=== PATIENT | female | born 1970 | race Caucasian/White ===

== ENCOUNTER 2018-05-14 12:08 | Inpatient (IN) | payer MEDICAID ==
[~2018-05-14] VITALS: Ht 160 cm; Wt 31.0 kg
[~2018-05-14 12:08] MED LIST: ACET-2119 PO; BUSP5TAB3 PO; DIAZ1KIT2 RC; LEVE10002 PO; LEVO112T39 PO; LORA0.5T PO; OXCA600T5 PO; PARO30TA4 PO; PHEN64.8 PO; VAL5T PO
[2018-05-14] MEDS ORDERED: acetaminophen 325mg rectal suppository RC ONE (12:20)
[2018-05-14] MEDS ORDERED: normal saline 1000ML IV soln IVB ONE (12:50)
[2018-05-14 12:57] LABS: BASOPHILS % (AUTO) 0 % (0-1); EOSINOPHILS % (AUTO) 0 % (0-6); HEMATOCRIT 43.3 % (35.0-45.0); HEMOGLOBIN 14.5 g/dl (12.0-16.0); LYMPHOCYTES # (AUTO) 0.7 X10'3 (1.1-4.8); MEAN CORPUSCULAR HEMOGLOBIN 31.4 PG (27.0-31.0); MEAN CORPUSCULAR HGB CONC 33.5 % (33.0-36.5); MEAN CORPUSCULAR VOLUME 93.7 FL (78-98); MONOCYTES # (AUTO) 0.3 X10'3 (0-0.9); MONOCYTES % (AUTO) 2.2 % (2-12); NEUTROPHILS # (AUTO) 12.7 X10'3 (1.8-7.7); NEUTROPHILS % (AUTO) 92.8 % (42-75); PLATELET COUNT 114 X10'3 (140-440); RED BLOOD COUNT 4.62 X10'6 (4.20-5.60); RED CELL DISTRIBUTION WIDTH 14.2 % (11.5-14.5); WHITE BLOOD COUNT 13.7 X10'3 (4.5-11.0)
[2018-05-14 13:13] LABS: ALANINE AMINOTRANSFERASE 62 U/L (12-78); ALBUMIN 3.8 G/DL (3.4-5.0); ALBUMIN/GLOBULIN RATIO 0.9 (1.1-1.5); ALKALINE PHOSPHATASE 111 IU/L (46-116); ANION GAP 10 (8-16); ASPARTATE AMINO TRANSFERASE 32 U/L (10-37); BILIRUBIN,TOTAL 0.4 MG/DL (0.1-1.0); BLOOD UREA NITROGEN 17 MG/DL (7-18); BUN/CREATININE RATIO 18.7 (6.6-38.0); CALCIUM 9.7 MG/DL (8.5-10.1); CHLORIDE 113 MMOL/L (99-107); CREATININE 0.91 MG/DL (0.40-0.90); GLUCOSE 121 MG/DL (70-104); POTASSIUM 3.3 MMOL/L (3.5-5.1); SODIUM 154 MMOL/L (135-145); TOTAL CARBON DIOXIDE 30.7 MMOL/L (24-32); TOTAL PROTEIN 8.2 G/DL (6.4-8.2); eGFR 66 ML/MIN
[2018-05-14 13:17] LABS: TOTAL CELLS COUNTED 100
[2018-05-14 13:21] LABS: PLATELET ESTIMATE DECREASED; TOXIC GRANULATION 1+
[2018-05-14 13:22] LABS: TOXIC VACUOLATION FEW
[2018-05-14 13:23] LABS: LARGE PLATELETS FEW
[2018-05-14] MEDS ORDERED: CefTRIAXone 2gm/D5W 50ml 50 ML IV ONE (13:40)
[2018-05-14 14:12] LABS: CLARITY,URINE SLIGHTLY CLOUDY (Clear); COLOR,URINE YELLOW (Yellow); GLUCOSE, URINE NEGATIVE (Neg); KETONES,URINE NEGATIVE (Neg); LEUKOCYTE ESTERASE ,URINE NEGATIVE (Neg); NITRITES, URINE POSITIVE (Neg); OCCULT BLOOD,URINE NEGATIVE (Neg); PH,URINE 8.5 (4.8-8.0); PROTEIN,URINE NEGATIVE (Neg); UROBILINOGEN,URINE 0.2 E.U/dL (0.2-1.0)
[2018-05-14 14:15] LABS: UA COLLECTION TYPE STRAIGHT CATH
[2018-05-14 14:18] LABS: BACTERIA,URINE 4+ /HPF (Neg); RBC,URINE NONE SEEN /HPF (0-2); SQUAMOUS EPITHELIAL CELL,UR NONE SEEN /LPF (FEW); WBC,URINE 0-4 /HPF (0-4)
[2018-05-14] MEDS ORDERED: magnesium hydroxide 30ml (MOM) UD suspension PO PRN (14:55)
[2018-05-14] MEDS ORDERED: HYDROcodone/acetaminophen 5mg/325mg tablet PO PRN (14:55)
[2018-05-14] MEDS ORDERED: ondansetron/PF 4mg/2ml inj IV PRN (14:55)
[2018-05-14] MEDS ORDERED: acetaminophen 325mg tablet PO PRN ×3 (14:55→15:40)
[2018-05-14] MEDS ORDERED: mag hydrox/Alum hydrox/simeth 30ml oral suspension PO PRN (14:55)
[2018-05-14] MEDS: normal saline 1000ml 1,000 ML IV SCH (14:55)
[2018-05-14] MEDS ORDERED: OXCA300T4 PO (15:10)
[2018-05-14] MEDS ORDERED: DOCU-28 PO (15:16)
[2018-05-14] MEDS ORDERED: MULT1CAP44 PO (15:16)
[2018-05-14] MEDS ORDERED: OMEP40CA37 PO (15:16)
[2018-05-14] MEDS ORDERED: LORA0.5T PO (15:16)
[2018-05-14] MEDS ORDERED: LORazepam 0.5 MG tablet PO PRN (15:40)
[2018-05-14 16:14] VITALS: BP 96/44
[2018-05-14] MEDS ORDERED: ibuprofen 200mg tablet PO PRN (16:35)
[2018-05-14] MEDS: levoFLOXACIN-Levaquin 500mg/D5 100 ML IV SCH (16:44)
[2018-05-14 18:00] VITALS: BP 91/64
[2018-05-14] MEDS: LORazepam 0.5 MG tablet PO SCH (18:16)
[2018-05-14] MEDS: levetiracetam 250mg tablet PO SCH (20:00)
[2018-05-14] MEDS ORDERED: OXCARBAZEPINE PO SCH (20:00)
[2018-05-14] MEDS: oxcarbazepine 150mg tablet PO SCH (20:00)
[2018-05-14] MEDS: busPIRone 5mg tablet PO SCH (20:00)
[2018-05-14] MEDS: docusate sod 100mg capsule PO SCH (20:00)
[2018-05-14] MEDS: phenobarbital 30mg tablet PO SCH (20:42)
[2018-05-15] VITALS: BP 129/103
[2018-05-15] MEDS: normal saline 1000ml 1,000 ML IV SCH ×3 (01:27→21:23)
[2018-05-15 06:32] LABS: ALBUMIN 2.8 G/DL (3.4-5.0); ANION GAP 12 (8-16); BLOOD UREA NITROGEN 17 MG/DL (7-18); BUN/CREATININE RATIO 25.8 (6.6-38.0); CALCIUM 8.5 MG/DL (8.5-10.1); CHLORIDE 117 MMOL/L (99-107); CREATININE 0.66 MG/DL (0.40-0.90); GLUCOSE 76 MG/DL (70-104); POTASSIUM 3.3 MMOL/L (3.5-5.1); SODIUM 154 MMOL/L (135-145); TOTAL CARBON DIOXIDE 25.3 MMOL/L (24-32); eGFR > 90 ML/MIN
[2018-05-15 06:43] LABS: BASOPHILS % (AUTO) 0.3 % (0-1); EOSINOPHILS # (AUTO) 0.1 X10'3 (0-0.9); EOSINOPHILS % (AUTO) 0.5 % (0-6); HEMATOCRIT 36.1 % (35.0-45.0); HEMOGLOBIN 11.8 g/dl (12.0-16.0); LYMPHOCYTES # (AUTO) 2.4 X10'3 (1.1-4.8); LYMPHOCYTES % (AUTO) 16.2 % (21-51); MEAN CORPUSCULAR HEMOGLOBIN 31.4 PG (27.0-31.0); MEAN CORPUSCULAR HGB CONC 32.7 % (33.0-36.5); MEAN CORPUSCULAR VOLUME 95.9 FL (78-98); MEAN PLATELET VOLUME 12.8 FL (7.4-10.4); MONOCYTES # (AUTO) 0.7 X10'3 (0-0.9); MONOCYTES % (AUTO) 4.9 % (2-12); NEUTROPHILS # (AUTO) 11.7 X10'3 (1.8-7.7); NEUTROPHILS % (AUTO) 78.1 % (42-75); PLATELET COUNT 88 X10'3 (140-440); RED BLOOD COUNT 3.76 X10'6 (4.20-5.60); RED CELL DISTRIBUTION WIDTH 14.4 % (11.5-14.5); WHITE BLOOD COUNT 14.9 X10'3 (4.5-11.0)
[2018-05-15 07:00] VITALS: BP 112/62
[2018-05-15] MEDS: enoxaparin 40mg/0.4ml syringe SQ SCH (07:02)
[2018-05-15] MEDS: pantoprazole 40mg Tablet.DR PO SCH (07:30)
[2018-05-15] MEDS ORDERED: LORazepam 0.5 MG tablet PO SCH (08:00)
[2018-05-15] MEDS: docusate sod 100mg capsule PO SCH ×2 (08:00→19:15)
[2018-05-15] MEDS: oxcarbazepine 150mg tablet PO SCH ×2 (08:00→19:15)
[2018-05-15] MEDS: LORazepam 0.5 MG tablet PO SCH (08:00)
[2018-05-15] MEDS ORDERED: enoxaparin 40mg/0.4ml syringe SUBCUT SCH (08:00)
[2018-05-15] MEDS: busPIRone 5mg tablet PO SCH ×2 (08:00→19:14)
[2018-05-15] MEDS: levetiracetam 250mg tablet PO SCH ×2 (08:00→19:15)
[2018-05-15] MEDS: levoTHYROXINE 112mcg tablet PO SCH (08:00)
[2018-05-15] MEDS: PARoxetine 20mg tablet PO SCH (08:00)
[2018-05-15] MEDS: multivitamins, therapeutics tablet PO SCH (08:00)
[2018-05-15] MEDS: phenobarbital 30mg tablet PO SCH ×2 (08:00→21:00)
[2018-05-15] MEDS: CefTRIAXone/D5W-Rocephin 1gm 50 ML IV SCH (08:22)
[2018-05-15] MEDS: levoFLOXACIN-Levaquin 500mg/D5 100 ML IV SCH (10:00)
[2018-05-15] MEDS ORDERED: potassium Cl 20 mEq SR tablet PO PRN ×2 (14:35)
[2018-05-15] MEDS ORDERED: magnesium 4gm in 100ml NS 100 ML IV PRN (14:35)
[2018-05-15] MEDS ORDERED: magnesium Cl slow-release 64mg tablet PO PRN (14:35)
[2018-05-15] MEDS ORDERED: potassium Cl 40MEQ/NS 500ml 500 ML IV PRN (14:35)
[2018-05-15] MEDS: potassium Cl 40MEQ/NS 500ml 500 ML IV PRN (16:05)
[2018-05-15 18:00] VITALS: BP 118/55
[2018-05-15] MEDS: lactobacillus rhamnosus 10,000 MMU CELLS/CAPSULE PO SCH (19:15)
[2018-05-16] VITALS: BP 112/56
[2018-05-16 05:15] LABS: BASOPHILS % (AUTO) 0.2 % (0-1); EOSINOPHILS # (AUTO) 0.2 X10'3 (0-0.9); EOSINOPHILS % (AUTO) 1.6 % (0-6); HEMATOCRIT 35.2 % (35.0-45.0); HEMOGLOBIN 11.7 g/dl (12.0-16.0); LYMPHOCYTES % (AUTO) 20.9 % (21-51); MEAN CORPUSCULAR HEMOGLOBIN 31.4 PG (27.0-31.0); MEAN CORPUSCULAR HGB CONC 33.3 % (33.0-36.5); MEAN CORPUSCULAR VOLUME 94.3 FL (78-98); MEAN PLATELET VOLUME 13.1 FL (7.4-10.4); MONOCYTES # (AUTO) 0.6 X10'3 (0-0.9); NEUTROPHILS # (AUTO) 6.9 X10'3 (1.8-7.7); NEUTROPHILS % (AUTO) 71.3 % (42-75); PLATELET COUNT 97 X10'3 (140-440); RED BLOOD COUNT 3.73 X10'6 (4.20-5.60); RED CELL DISTRIBUTION WIDTH 13.8 % (11.5-14.5); WHITE BLOOD COUNT 9.7 X10'3 (4.5-11.0)
[2018-05-16 05:25] LABS: ALBUMIN 2.8 G/DL (3.4-5.0); ANION GAP 13 (8-16); BLOOD UREA NITROGEN 11 MG/DL (7-18); BUN/CREATININE RATIO 15.9 (6.6-38.0); CALCIUM 8.6 MG/DL (8.5-10.1); CHLORIDE 111 MMOL/L (99-107); CREATININE 0.69 MG/DL (0.40-0.90); GLUCOSE 68 MG/DL (70-104); POTASSIUM 4.3 MMOL/L (3.5-5.1); SODIUM 148 MMOL/L (135-145); eGFR > 90 ML/MIN
[2018-05-16 05:41] LABS: LARGE PLATELETS FEW; PLATELET ESTIMATE DECREASED
[2018-05-16] MEDS: normal saline 1000ml 1,000 ML IV SCH ×2 (06:55→15:44)
[2018-05-16 07:00] VITALS: BP 134/76
[2018-05-16] MEDS: pantoprazole 40mg Tablet.DR PO SCH (07:30)
[2018-05-16] MEDS: lactobacillus rhamnosus 10,000 MMU CELLS/CAPSULE PO SCH ×2 (08:00→19:58)
[2018-05-16] MEDS: multivitamins, therapeutics tablet PO SCH (08:00)
[2018-05-16] MEDS: levoTHYROXINE 112mcg tablet PO SCH (08:00)
[2018-05-16] MEDS: oxcarbazepine 150mg tablet PO SCH ×2 (08:00→19:58)
[2018-05-16] MEDS: PARoxetine 20mg tablet PO SCH (08:00)
[2018-05-16] MEDS: busPIRone 5mg tablet PO SCH ×2 (08:00→19:58)
[2018-05-16] MEDS: phenobarbital 30mg tablet PO SCH ×2 (08:00→20:38)
[2018-05-16] MEDS: enoxaparin 40mg/0.4ml syringe SQ SCH (08:00)
[2018-05-16] MEDS: docusate sod 100mg capsule PO SCH ×2 (08:00→19:58)
[2018-05-16] MEDS: CefTRIAXone/D5W-Rocephin 1gm 50 ML IV SCH (08:14)
[2018-05-16] MEDS: LORazepam 2 mg/ml vial IV SCH (08:15)
[2018-05-16] MEDS: levoFLOXACIN-Levaquin 500mg/D5 100 ML IV SCH (09:43)
[2018-05-16] MEDS: levetiracetam inj 500 MG in normal saline 100ml IV soln 95 ML IV SCH ×2 (11:41→19:46)
[2018-05-16 12:36] VITALS: BP 124/69
[2018-05-16 18:00] VITALS: BP 114/40
[2018-05-17] VITALS: BP 123/53
[2018-05-17] MEDS: normal saline 1000ml 1,000 ML IV SCH (03:24)
[2018-05-17 05:07] LABS: BASOPHILS % (AUTO) 0.3 % (0-1); EOSINOPHILS # (AUTO) 0.1 X10'3 (0-0.9); EOSINOPHILS % (AUTO) 1.7 % (0-6); HEMATOCRIT 36.3 % (35.0-45.0); HEMOGLOBIN 12.2 g/dl (12.0-16.0); LYMPHOCYTES # (AUTO) 1.7 X10'3 (1.1-4.8); LYMPHOCYTES % (AUTO) 26.7 % (21-51); MEAN CORPUSCULAR HEMOGLOBIN 31.7 PG (27.0-31.0); MEAN CORPUSCULAR HGB CONC 33.7 % (33.0-36.5); MEAN CORPUSCULAR VOLUME 93.8 FL (78-98); MONOCYTES # (AUTO) 0.5 X10'3 (0-0.9); NEUTROPHILS # (AUTO) 4.1 X10'3 (1.8-7.7); NEUTROPHILS % (AUTO) 63.3 % (42-75); PLATELET COUNT 92 X10'3 (140-440); RED BLOOD COUNT 3.86 X10'6 (4.20-5.60); RED CELL DISTRIBUTION WIDTH 13.3 % (11.5-14.5); WHITE BLOOD COUNT 6.5 X10'3 (4.5-11.0)
[2018-05-17 05:25] LABS: ALBUMIN 2.8 G/DL (3.4-5.0); ANION GAP 13 (8-16); BLOOD UREA NITROGEN 7 MG/DL (7-18); BUN/CREATININE RATIO 11.9 (6.6-38.0); CALCIUM 8.5 MG/DL (8.5-10.1); CHLORIDE 109 MMOL/L (99-107); CREATININE 0.59 MG/DL (0.40-0.90); GLUCOSE 76 MG/DL (70-104); POTASSIUM 3.2 MMOL/L (3.5-5.1); SODIUM 147 MMOL/L (135-145); TOTAL CARBON DIOXIDE 24.9 MMOL/L (24-32); eGFR > 90 ML/MIN
[2018-05-17 05:40] LABS: LARGE PLATELETS FEW; PLATELET ESTIMATE DECREASED
[2018-05-17 07:05] VITALS: BP 96/52
[2018-05-17] MEDS: pantoprazole 40mg Tablet.DR PO SCH (07:30)
[2018-05-17] MEDS: busPIRone 5mg tablet PO SCH ×2 (08:00→20:00)
[2018-05-17] MEDS: lactobacillus rhamnosus 10,000 MMU CELLS/CAPSULE PO SCH (08:00)
[2018-05-17] MEDS: enoxaparin 40mg/0.4ml syringe SQ SCH (08:00)
[2018-05-17] MEDS: multivitamins, therapeutics tablet PO SCH (08:00)
[2018-05-17] MEDS: oxcarbazepine 150mg tablet PO SCH ×2 (08:00→20:00)
[2018-05-17] MEDS: phenobarbital 30mg tablet PO SCH ×2 (08:00→20:06)
[2018-05-17] MEDS: PARoxetine 20mg tablet PO SCH (08:00)
[2018-05-17] MEDS: docusate sod 100mg capsule PO SCH ×2 (08:00→20:00)
[2018-05-17] MEDS: LORazepam 2 mg/ml vial IV SCH (08:16)
[2018-05-17] MEDS: levetiracetam inj 500 MG in normal saline 100ml IV soln 95 ML IV SCH ×2 (08:16→20:04)
[2018-05-17] MEDS: levoTHYROXINE 112mcg tablet PO SCH (08:16)
[2018-05-17] MEDS: levoFLOXACIN-Levaquin 500mg/D5 100 ML IV SCH (09:16)
[2018-05-17] MEDS: CefTRIAXone/D5W-Rocephin 1gm 50 ML IV SCH (11:16)
[2018-05-17 11:18] VITALS: BP 131/63
[2018-05-17] MEDS: potassium Cl 20mEq in D5-NS 1,000 ML IV SCH (12:47)
[2018-05-17] MEDS: potassium Cl 40MEQ/NS 500ml 500 ML IV PRN (12:47)
[2018-05-17] MEDS: pantoprazole 40 MG vial IV SCH (15:55)
[2018-05-17 20:00] VITALS: BP 139/116
[2018-05-18] MEDS: LORazepam 2 mg/ml vial IV PRN ×2 (00:56→17:38)
[2018-05-18] MEDS: potassium Cl 20mEq in D5-NS 1,000 ML IV SCH ×3 (00:58→23:50)
[2018-05-18 06:46] LABS: ALBUMIN 2.8 G/DL (3.4-5.0); ANION GAP 13 (8-16); BLOOD UREA NITROGEN 5 MG/DL (7-18); BUN/CREATININE RATIO 9.4 (6.6-38.0); CALCIUM 8.4 MG/DL (8.5-10.1); CHLORIDE 108 MMOL/L (99-107); CREATININE 0.53 MG/DL (0.40-0.90); GLUCOSE 100 MG/DL (70-104); POTASSIUM 4.3 MMOL/L (3.5-5.1); SODIUM 146 MMOL/L (135-145); TOTAL CARBON DIOXIDE 24.9 MMOL/L (24-32); eGFR > 90 ML/MIN
[2018-05-18 06:51] LABS: BASOPHILS % (AUTO) 0.3 % (0-1); EOSINOPHILS # (AUTO) 0.2 X10'3 (0-0.9); EOSINOPHILS % (AUTO) 2.7 % (0-6); HEMATOCRIT 37.5 % (35.0-45.0); HEMOGLOBIN 12.6 g/dl (12.0-16.0); LYMPHOCYTES % (AUTO) 32.3 % (21-51); MEAN CORPUSCULAR HEMOGLOBIN 31.5 PG (27.0-31.0); MEAN CORPUSCULAR HGB CONC 33.6 % (33.0-36.5); MEAN CORPUSCULAR VOLUME 93.8 FL (78-98); MONOCYTES # (AUTO) 0.6 X10'3 (0-0.9); MONOCYTES % (AUTO) 9.1 % (2-12); NEUTROPHILS # (AUTO) 3.4 X10'3 (1.8-7.7); NEUTROPHILS % (AUTO) 55.6 % (42-75); PLATELET COUNT 111 X10'3 (140-440); RED BLOOD COUNT 3.99 X10'6 (4.20-5.60); RED CELL DISTRIBUTION WIDTH 13.6 % (11.5-14.5); WHITE BLOOD COUNT 6.2 X10'3 (4.5-11.0)
[2018-05-18 07:07] VITALS: BP 104/41
[2018-05-18 07:12] LABS: LARGE PLATELETS FEW; PLATELET ESTIMATE DECREASED
[2018-05-18] MEDS: PARoxetine 20mg tablet PO SCH (07:56)
[2018-05-18] MEDS: oxcarbazepine 150mg tablet PO SCH ×3 (07:56→20:00)
[2018-05-18] MEDS: busPIRone 5mg tablet PO SCH ×3 (07:56→20:00)
[2018-05-18] MEDS: enoxaparin 40mg/0.4ml syringe SQ SCH (08:00)
[2018-05-18] MEDS: multivitamins, therapeutics tablet PO SCH (08:00)
[2018-05-18] MEDS: docusate sod 100mg capsule PO SCH ×3 (08:00→20:00)
[2018-05-18] MEDS: phenobarbital 30mg tablet PO SCH ×3 (08:00→21:00)
[2018-05-18] MEDS: LORazepam 2 mg/ml vial IV SCH (08:02)
[2018-05-18] MEDS: levetiracetam inj 500 MG in normal saline 100ml IV soln 95 ML IV SCH ×2 (08:04→19:51)
[2018-05-18] MEDS: CefTRIAXone/D5W-Rocephin 1gm 50 ML IV SCH (08:04)
[2018-05-18] MEDS: pantoprazole 40 MG vial IV SCH (08:35)
[2018-05-18] MEDS: levoFLOXACIN-Levaquin 500mg/D5 100 ML IV SCH (09:21)
[2018-05-18] MEDS: levoTHYROXINE sod inj. 100mcg/5 ml vial IV SCH (09:59)
[2018-05-18 12:49] VITALS: BP 97/62
[2018-05-18 20:00] VITALS: BP 87/52
[2018-05-19] VITALS: BP 86/55
[2018-05-19 06:55] LABS: BASOPHILS % (AUTO) 0.4 % (0-1); EOSINOPHILS # (AUTO) 0.1 X10'3 (0-0.9); EOSINOPHILS % (AUTO) 1.6 % (0-6); HEMOGLOBIN 12.3 g/dl (12.0-16.0); LYMPHOCYTES # (AUTO) 1.9 X10'3 (1.1-4.8); LYMPHOCYTES % (AUTO) 39.6 % (21-51); MEAN CORPUSCULAR HEMOGLOBIN 31.2 PG (27.0-31.0); MEAN CORPUSCULAR HGB CONC 33.2 % (33.0-36.5); MEAN CORPUSCULAR VOLUME 94.1 FL (78-98); MONOCYTES # (AUTO) 0.6 X10'3 (0-0.9); MONOCYTES % (AUTO) 12.5 % (2-12); NEUTROPHILS # (AUTO) 2.2 X10'3 (1.8-7.7); NEUTROPHILS % (AUTO) 45.9 % (42-75); PLATELET COUNT 130 X10'3 (140-440); RED BLOOD COUNT 3.94 X10'6 (4.20-5.60); WHITE BLOOD COUNT 4.9 X10'3 (4.5-11.0)
[2018-05-19 07:00] VITALS: BP 111/67
[2018-05-19] MEDS: levetiracetam inj 500 MG in normal saline 100ml IV soln 95 ML IV SCH (07:07)
[2018-05-19 07:09] LABS: ALBUMIN 2.6 G/DL (3.4-5.0); ANION GAP 11 (8-16); BLOOD UREA NITROGEN 6 MG/DL (7-18); BUN/CREATININE RATIO 11.5 (6.6-38.0); CALCIUM 8.1 MG/DL (8.5-10.1); CHLORIDE 111 MMOL/L (99-107); CREATININE 0.52 MG/DL (0.40-0.90); GLUCOSE 98 MG/DL (70-104); SODIUM 147 MMOL/L (135-145); TOTAL CARBON DIOXIDE 25.1 MMOL/L (24-32); eGFR > 90 ML/MIN
[2018-05-19] MEDS: phenobarbital 30mg tablet PO SCH ×2 (08:00→20:10)
[2018-05-19] MEDS: multivitamins, therapeutics tablet PO SCH (08:00)
[2018-05-19] MEDS: oxcarbazepine 150mg tablet PO SCH ×2 (08:00→20:10)
[2018-05-19] MEDS: PARoxetine 20mg tablet PO SCH (08:00)
[2018-05-19] MEDS: docusate sod 100mg capsule PO SCH ×2 (08:00→20:12)
[2018-05-19] MEDS: busPIRone 5mg tablet PO SCH ×2 (08:00→20:12)
[2018-05-19] MEDS: pantoprazole 40 MG vial IV SCH (08:19)
[2018-05-19] MEDS: levoFLOXACIN-Levaquin 500mg/D5 100 ML IV SCH (08:19)
[2018-05-19] MEDS: levoTHYROXINE sod inj. 100mcg/5 ml vial IV SCH (08:19)
[2018-05-19] MEDS: CefTRIAXone/D5W-Rocephin 1gm 50 ML IV SCH (09:41)
[2018-05-19] MEDS: enoxaparin 40mg/0.4ml syringe SQ SCH (09:42)
[2018-05-19] MEDS: LORazepam 2 mg/ml vial IV SCH (09:45)
[2018-05-19] MEDS: LORazepam 2 mg/ml vial IV PRN ×2 (14:06→18:53)
[2018-05-19] MEDS: potassium Cl 20mEq in D5-NS 1,000 ML IV SCH (14:08)
[2018-05-19] MEDS: Potassium Cl inj 20 MEQ in dextrose 5%-water 990 ML IV SCH (17:30)
[2018-05-19 20:00] VITALS: BP 102/64
[2018-05-19] MEDS ORDERED: levetiracetam 250mg tablet PO SCH (20:00)
[2018-05-19] MEDS: levetiracetam 250mg tablet PO SCH (22:02)
[2018-05-20 00:11] VITALS: BP 102/58
[2018-05-20] MEDS: Potassium Cl inj 20 MEQ in dextrose 5%-water 990 ML IV SCH (03:30)
[2018-05-20] MEDS ORDERED: pantoprazole 40mg Tablet.DR PO SCH (07:30)
[2018-05-20] MEDS: levetiracetam 250mg tablet PO SCH (08:48)
[2018-05-20] MEDS: enoxaparin 40mg/0.4ml syringe SQ SCH (08:56)
[2018-05-20] MEDS: busPIRone 5mg tablet PO SCH (08:57)
[2018-05-20] MEDS: oxcarbazepine 150mg tablet PO SCH (08:57)
[2018-05-20] MEDS: docusate sod 100mg capsule PO SCH (08:57)
[2018-05-20] MEDS: PARoxetine 20mg tablet PO SCH (08:57)
[2018-05-20] MEDS: multivitamins, therapeutics tablet PO SCH (08:58)
[2018-05-20] MEDS: phenobarbital 30mg tablet PO SCH (08:58)
[2018-05-20] MEDS ORDERED: levoFLOXACIN 500mg tablet PO SCH (11:00)
[2018-05-20] MEDS ORDERED: LEVO500T89 PO (11:01)
[2018-05-20 12:00] VITALS: BP 120/64
[2018-05-20] MEDS ORDERED: lactose-reduced food (Ensure High Protein) 237ml bottle PO SCH (17:30)
[2018-05-21] MEDS ORDERED: levoTHYROXINE 112mcg tablet PO SCH (07:00)
[2018-05-21] MEDS ORDERED: pantoprazole 40mg Tablet.DR PO SCH (07:30)
== END 2018-05-20 13:57 | disposition home or self-care (01) | DRG 53 ==
LOC: ER 12:08 → ED HOLD 14:55 → EDBEDREQ 15:10 → SUR 3N 15:55
PROVIDERS: ADMIT Internal Medicine; ATTEND Family Medicine
DX: G40.909 Epilepsy, unspecified, not intractable, without status epilepticus (principal); J18.1 Lobar pneumonia, unspecified organism; E87.0 Hyperosmolality and hypernatremia; G80.9 Cerebral palsy, unspecified; R13.10 Dysphagia, unspecified; N39.0 Urinary tract infection, site not specified; B96.20 Unspecified Escherichia coli [E. coli] as the cause of diseases classified elsewhere; E03.9 Hypothyroidism, unspecified; E87.6 Hypokalemia; Z68.1 Body mass index [BMI] 19.9 or less, adult; Z79.899 Other long term (current) drug therapy
CPT/HCPCS: 36415; 71045; 80048; 80053; 81001; 83605; 84145; 84443; 85025; 87040; 87070; 87077; 87088; 87186; 92616; 96361; 96365; 99285; A6213; A6402; C9113; J0696; J1650; J1953; J1956; J2060; J3480; J7030; J7070

== ENCOUNTER 2018-06-18 11:42 | Emergency (ER) | payer MEDICAID ==
[~2018-06-18] VITALS: Ht 160 cm; Wt 40.9 kg
[~2018-06-18 11:42] MED LIST changes: -DIAZ1KIT2 RC; +DOCU-28 PO; +LEVO500T89 PO; +MULT1CAP44 PO; +OMEP40CA37 PO; +OXCA300T4 PO; -VAL5T PO
[2018-06-18 14:15] VITALS: BP 104/55
[2018-06-18 14:18] LABS: BASOPHILS % (AUTO) 0.7 % (0-1); EOSINOPHILS # (AUTO) 0.1 X10'3 (0-0.9); EOSINOPHILS % (AUTO) 1.1 % (0-6); HEMATOCRIT 38.5 % (35.0-45.0); HEMOGLOBIN 12.7 g/dl (12.0-16.0); LYMPHOCYTES # (AUTO) 2.5 X10'3 (1.1-4.8); MEAN CORPUSCULAR HEMOGLOBIN 31.3 PG (27.0-31.0); MEAN CORPUSCULAR HGB CONC 32.9 % (33.0-36.5); MEAN CORPUSCULAR VOLUME 94.9 FL (78-98); MEAN PLATELET VOLUME 10.5 FL (7.4-10.4); MONOCYTES # (AUTO) 0.4 X10'3 (0-0.9); MONOCYTES % (AUTO) 6.2 % (2-12); NEUTROPHILS # (AUTO) 3.2 X10'3 (1.8-7.7); PLATELET COUNT 188 X10'3 (140-440); RED BLOOD COUNT 4.06 X10'6 (4.20-5.60); RED CELL DISTRIBUTION WIDTH 14.9 % (11.5-14.5); WHITE BLOOD COUNT 6.2 X10'3 (4.5-11.0)
[2018-06-18 14:27] LABS: ALANINE AMINOTRANSFERASE 35 U/L (12-78); ALBUMIN 3.4 G/DL (3.4-5.0); ALBUMIN/GLOBULIN RATIO 0.8 (1.1-1.5); ALKALINE PHOSPHATASE 103 IU/L (46-116); ANION GAP 6 (8-16); ASPARTATE AMINO TRANSFERASE 32 U/L (10-37); BILIRUBIN,TOTAL 0.3 MG/DL (0.1-1.0); BLOOD UREA NITROGEN 15 MG/DL (7-18); BUN/CREATININE RATIO 28.3 (6.6-38.0); CALCIUM 8.5 MG/DL (8.5-10.1); CHLORIDE 109 MMOL/L (99-107); CREATININE 0.53 MG/DL (0.40-0.90); GLUCOSE 87 MG/DL (70-104); SODIUM 145 MMOL/L (135-145); TOTAL CARBON DIOXIDE 29.8 MMOL/L (24-32); TOTAL PROTEIN 7.8 G/DL (6.4-8.2); eGFR > 90 ML/MIN
[2018-06-18 14:29] LABS: POTASSIUM 3.5 MMOL/L (3.5-5.1)
[2018-06-18 16:22] LABS: CLARITY,URINE CLEAR (Clear); COLOR,URINE YELLOW (Yellow); GLUCOSE, URINE NEGATIVE (Neg); KETONES,URINE NEGATIVE (Neg); LEUKOCYTE ESTERASE ,URINE NEGATIVE (Neg); NITRITES, URINE NEGATIVE (Neg); OCCULT BLOOD,URINE NEGATIVE (Neg); PH,URINE 8.5 (4.8-8.0); PROTEIN,URINE NEGATIVE (Neg); UROBILINOGEN,URINE 0.2 E.U/dL (0.2-1.0)
[2018-06-18 16:28] LABS: UA COLLECTION TYPE STRAIGHT CATH
== END 2018-06-18 17:02 | disposition home or self-care (01) ==
LOC: ER 11:43
DX: R79.9 Abnormal finding of blood chemistry, unspecified (principal); G80.8 Other cerebral palsy; E03.9 Hypothyroidism, unspecified; R56.9 Unspecified convulsions; Z79.899 Other long term (current) drug therapy
CPT/HCPCS: 36415; 80053; 81003; 85025; 99284

== ENCOUNTER 2019-06-28 11:39 | Emergency (ER) | payer MEDICAID ==
[~2019-06-28] VITALS: Ht 157.5 cm; Wt 43.0 kg
[~2019-06-28 11:39] MED LIST changes: -LEVO500T89 PO; +OMEP40CA13 PO; -OMEP40CA37 PO
[2019-06-28 13:25] LABS: ALANINE AMINOTRANSFERASE 38 U/L (12-78); ALBUMIN/GLOBULIN RATIO 0.9 (1.1-1.5); ALKALINE PHOSPHATASE 94 IU/L (46-116); ASPARTATE AMINO TRANSFERASE 39 U/L (10-37); BILIRUBIN,TOTAL 0.3 MG/DL (0.1-1.0); TOTAL PROTEIN 8.6 G/DL (6.4-8.2)
[2019-06-28 15:21] VITALS: BP 112/85
== END 2019-06-28 15:23 | disposition home or self-care (01) ==
LOC: ER 11:40
DX: S01.111A Laceration without foreign body of right eyelid and periocular area, initial encounter (principal); T42.6X5A Adverse effect of other antiepileptic and sedative-hypnotic drugs, initial encounter; G80.9 Cerebral palsy, unspecified; E03.9 Hypothyroidism, unspecified; Z86.69 Personal history of other diseases of the nervous system and sense organs; Z79.899 Other long term (current) drug therapy; W18.39XA Other fall on same level, initial encounter; Y93.89 Activity, other specified; Y92.89 Other specified places as the place of occurrence of the external cause; Y99.8 Other external cause status
CPT/HCPCS: 12013; 36415; 80076; 99284

== ENCOUNTER 2019-07-17 09:10 | Inpatient (IN) | payer MEDICAID ==
[~2019-07-17] VITALS: Ht 162.6 cm; Wt 49.2 kg
[2019-07-17] MEDS ORDERED: LORazepam 2 mg/ml vial IM ONE (09:55)
[2019-07-17] MEDS ORDERED: normal saline 1000ML IV soln IVB ONE (09:55)
[2019-07-17 10:16] LABS: BASOPHILS # (AUTO) 0.1 X10'3 (0-0.2); HEMOGLOBIN 16.1 g/dl (12.0-16.0); MONOCYTES # (AUTO) 0.7 X10'3 (0-0.9); MONOCYTES % (AUTO) 8.1 % (2-12); RED CELL DISTRIBUTION WIDTH 14.9 % (11.5-14.5)
[2019-07-17 10:18] LABS: BASOPHILS % (AUTO) 0.7 % (0-1); EOSINOPHILS # (AUTO) 0.1 X10'3 (0-0.9); EOSINOPHILS % (AUTO) 0.7 % (0-6); HEMATOCRIT 48.8 % (35.0-45.0); LYMPHOCYTES # (AUTO) 1.7 X10'3 (1.1-4.8); LYMPHOCYTES % (AUTO) 19.4 % (21-51); MEAN CORPUSCULAR HGB CONC 33.1 g/dL (33.0-36.5); MEAN CORPUSCULAR VOLUME 96.7 FL (78-98); NEUTROPHILS # (AUTO) 6.1 X10'3 (1.8-7.7); NEUTROPHILS % (AUTO) 71.1 % (42-75); PLATELET COUNT 93 X10'3 (140-440); RED BLOOD COUNT 5.04 X10'6 (4.20-5.60); WHITE BLOOD COUNT 8.5 X10'3 (4.5-11.0)
[2019-07-17 10:27] LABS: ALANINE AMINOTRANSFERASE 44 U/L (12-78); ALBUMIN 4.1 G/DL (3.4-5.0); ALBUMIN/GLOBULIN RATIO 0.9 (1.1-1.5); ALKALINE PHOSPHATASE 126 IU/L (46-116); ANION GAP 11 (8-16); ASPARTATE AMINO TRANSFERASE 63 U/L (10-37); BILIRUBIN,TOTAL 0.5 MG/DL (0.1-1.0); BLOOD UREA NITROGEN 29 MG/DL (7-18); BUN/CREATININE RATIO 29.9 (6.6-38.0); CHLORIDE 129 MMOL/L (99-107); CREATININE 0.97 MG/DL (0.40-0.90); GLUCOSE 99 MG/DL (70-104); POTASSIUM 3.7 MMOL/L (3.5-5.1); TOTAL CARBON DIOXIDE 34.1 MMOL/L (24-32); TOTAL PROTEIN 8.8 G/DL (6.4-8.2); eGFR 61 ML/MIN
[2019-07-17 10:28] LABS: SODIUM 174 MMOL/L (135-145)
[2019-07-17 10:31] LABS: LARGE PLATELETS FEW; PLATELET ESTIMATE DECREASED
[2019-07-17] MEDS ORDERED: normal saline 1000ml 1,000 ML IV ONE (10:44)
[2019-07-17] MEDS ORDERED: dextrose 5%-1/2 normal saline 1,000 ML IV ONE (11:34)
[2019-07-17] MEDS ORDERED: sodium chloride 0.45% 1,000 ML IV ONE ×2 (11:40→11:45)
[2019-07-17 12:42] LABS: ANION GAP 8 (8-16); BLOOD UREA NITROGEN 28 MG/DL (7-18); BUN/CREATININE RATIO 33.7 (6.6-38.0); CALCIUM 8.8 MG/DL (8.5-10.1); CHLORIDE 129 MMOL/L (99-107); CREATININE 0.83 MG/DL (0.40-0.90); GLUCOSE 97 MG/DL (70-104); POTASSIUM 3.8 MMOL/L (3.5-5.1); TOTAL CARBON DIOXIDE 35.9 MMOL/L (24-32); eGFR 73 ML/MIN
[2019-07-17 12:47] LABS: SODIUM 173 MMOL/L (135-145)
[2019-07-17 12:50] LABS: ABG BASE EXCESS 3.7 mmol/L (-2.0-3.0); ABG HCO3 29.6 mmol/L (22.0-26.0); ABG OXYGEN SATURATION 95.3 % (95-98); ABG PCO2 (T) 46.9 mmHg (35.0-45.0); ABG PH (T) 7.414 (7.350-7.450); ABG PO2 (T) 75.2 mmHg (83-108); ALLEN'S TEST Positive; FCOHb 0.3 % (0.5-1.5); FLOW 16 L/min; FMetHb 0.1 % (0.3-1.12); FO2Hb 94.9 % (94-100); TOTAL HEMOGLOBIN 15.8 G/dl (12.0-16.0)
[2019-07-17] MEDS ORDERED: potassium CL 10mEq/100ml bag 100 ML IV PRN (13:10)
[2019-07-17] MEDS ORDERED: bisacodyl 10mg suppository rectal RC PRN (13:10)
[2019-07-17] MEDS ORDERED: acetaminophen 325mg tablet PO PRN (13:10)
[2019-07-17] MEDS ORDERED: ondansetron/PF 4mg/2ml inj IV PRN (13:10)
[2019-07-17] MEDS ORDERED: magnesium 4gm in 100ml NS 100 ML IV PRN (13:10)
[2019-07-17] MEDS ORDERED: mag hydrox/Alum hydrox/simeth 30ml oral suspension PO PRN (13:10)
[2019-07-17] MEDS ORDERED: potassium Cl 20 mEq SR tablet PO PRN ×2 (13:10)
[2019-07-17] MEDS ORDERED: magnesium 2GM in 50ml NS 50 ML IV PRN (13:10)
[2019-07-17 13:22] LABS: CLARITY,URINE CLEAR (Clear); GLUCOSE, URINE NEGATIVE (Neg); KETONES,URINE 15 mg/dl (Neg); LEUKOCYTE ESTERASE ,URINE NEGATIVE (Neg); NITRITES, URINE NEGATIVE (Neg); OCCULT BLOOD,URINE TRACE-INTACT (Neg); PROTEIN,URINE 30 mg/dl (Neg)
[2019-07-17 13:23] LABS: COLOR,URINE DARK YELLOW (Yellow); UA COLLECTION TYPE FOLEY CATH; URINE HCG NEGATIVE (NEG)
[2019-07-17 13:30] LABS: BACTERIA,URINE 3+ /HPF (Neg); COARSE GRANULAR CAST 0-3 /LPF (NEGATIVE); MUCUS STRANDS FEW /LPF (Neg); SQUAMOUS EPITHELIAL CELL,UR NONE SEEN /LPF (FEW); WBC,URINE 0-4 /HPF (0-4)
[2019-07-17 14:30] LABS: ALBUMIN 3.7 G/DL (3.4-5.0); ANION GAP 9 (8-16); BLOOD UREA NITROGEN 29 MG/DL (7-18); BUN/CREATININE RATIO 37.2 (6.6-38.0); CALCIUM 8.4 MG/DL (8.5-10.1); CHLORIDE 130 MMOL/L (99-107); CREATININE 0.78 MG/DL (0.40-0.90); GLUCOSE 91 MG/DL (70-104); TOTAL CARBON DIOXIDE 33.6 MMOL/L (24-32); eGFR 78 ML/MIN
[2019-07-17 14:31] LABS: POTASSIUM 3.7 MMOL/L (3.5-5.1)
[2019-07-17 14:44] LABS: SODIUM 173 MMOL/L (135-145)
--- NOTE | 2019-07-17 14:44 | NUR ---
Received report from ER nurse, patient arrived on unit, does not open eyes or speak but responds with movement and localizes to stimuli. VSS, will continue to monitor.
[2019-07-17 14:51] VITALS: BP 126/54
[2019-07-17] MEDS: sodium chloride 0.45% 1,000 ML IV SCH ×2 (16:00→22:07)
[2019-07-17 16:04] LABS: ALBUMIN 3.5 G/DL (3.4-5.0); ANION GAP 8 (8-16); BLOOD UREA NITROGEN 28 MG/DL (7-18); CALCIUM 8.2 MG/DL (8.5-10.1); CHLORIDE 130 MMOL/L (99-107); GLUCOSE 88 MG/DL (70-104); TOTAL CARBON DIOXIDE 34.8 MMOL/L (24-32); eGFR 76 ML/MIN
[2019-07-17 16:05] LABS: SODIUM 173 MMOL/L (135-145)
[2019-07-17 16:07] LABS: POTASSIUM 3.6 MMOL/L (3.5-5.1)
--- NOTE | 2019-07-17 16:37 | NUR ---
PAGER ID: [phone] MESSAGE: TANNA Odonnell, ext [phone], Neris, patient is refusing blood draws, Grace says we have to get blood draws, what do you want us to do? Restraints?
[2019-07-17] MEDS: LORazepam 2 mg/ml vial IV PRN ×3 (16:46→23:17)
[2019-07-17 17:08] LABS: ALBUMIN 3.7 G/DL (3.4-5.0); ANION GAP 7 (8-16); BLOOD UREA NITROGEN 27 MG/DL (7-18); CALCIUM 8.4 MG/DL (8.5-10.1); CHLORIDE 130 MMOL/L (99-107); GLUCOSE 87 MG/DL (70-104); POTASSIUM 3.5 MMOL/L (3.5-5.1); TOTAL CARBON DIOXIDE 36.9 MMOL/L (24-32); eGFR 67 ML/MIN
[2019-07-17 17:09] LABS: SODIUM 174 MMOL/L (135-145)
[2019-07-17 18:00] VITALS: BP 90/57
--- NOTE | 2019-07-17 18:00 | NUR ---
Patient in room PCU 3019. I have received report from Belle CISSE and had the opportunity to ask questions and assume patient care.
--- NOTE | 2019-07-17 18:31 | NUR ---
Problems reprioritized. Patient report given, questions answered & plan of care reviewed with TANNA Tesfaye.
[2019-07-17 18:39] LABS: ALBUMIN 3.5 G/DL (3.4-5.0); ANION GAP 8 (8-16); BLOOD UREA NITROGEN 28 MG/DL (7-18); BUN/CREATININE RATIO 32.9 (6.6-38.0); CALCIUM 8.3 MG/DL (8.5-10.1); CHLORIDE 130 MMOL/L (99-107); CREATININE 0.85 MG/DL (0.40-0.90); GLUCOSE 81 MG/DL (70-104); POTASSIUM 3.3 MMOL/L (3.5-5.1); TOTAL CARBON DIOXIDE 35.3 MMOL/L (24-32); eGFR 71 ML/MIN
[2019-07-17 18:50] LABS: SODIUM 173 MMOL/L (135-145)
[2019-07-17 19:35] LABS: ALBUMIN 3.8 G/DL (3.4-5.0); ANION GAP 7 (8-16); BLOOD UREA NITROGEN 27 MG/DL (7-18); BUN/CREATININE RATIO 32.9 (6.6-38.0); CALCIUM 8.8 MG/DL (8.5-10.1); CHLORIDE 131 MMOL/L (99-107); CREATININE 0.82 MG/DL (0.40-0.90); GLUCOSE 81 MG/DL (70-104); POTASSIUM 4.1 MMOL/L (3.5-5.1); TOTAL CARBON DIOXIDE 34.7 MMOL/L (24-32); eGFR 74 ML/MIN
[2019-07-17 19:39] LABS: SODIUM 173 MMOL/L (135-145)
[2019-07-17 20:29] LABS: ALBUMIN 3.7 G/DL (3.4-5.0); ANION GAP 9 (8-16); BLOOD UREA NITROGEN 26 MG/DL (7-18); BUN/CREATININE RATIO 29.9 (6.6-38.0); CALCIUM 8.4 MG/DL (8.5-10.1); CHLORIDE 130 MMOL/L (99-107); CREATININE 0.87 MG/DL (0.40-0.90); GLUCOSE 76 MG/DL (70-104); POTASSIUM 3.6 MMOL/L (3.5-5.1); TOTAL CARBON DIOXIDE 35.3 MMOL/L (24-32); eGFR 69 ML/MIN
[2019-07-17 20:33] LABS: SODIUM 174 MMOL/L (135-145)
[2019-07-17 21:57] LABS: ALBUMIN 3.5 G/DL (3.4-5.0); ANION GAP 8 (8-16); BLOOD UREA NITROGEN 27 MG/DL (7-18); BUN/CREATININE RATIO 31.8 (6.6-38.0); CALCIUM 8.1 MG/DL (8.5-10.1); CHLORIDE 130 MMOL/L (99-107); CREATININE 0.85 MG/DL (0.40-0.90); GLUCOSE 73 MG/DL (70-104); POTASSIUM 3.4 MMOL/L (3.5-5.1); TOTAL CARBON DIOXIDE 34.3 MMOL/L (24-32); eGFR 71 ML/MIN
[2019-07-17 22:00] VITALS: BP 101/35
[2019-07-17 22:04] LABS: SODIUM 172 MMOL/L (135-145)
[2019-07-17 22:36] LABS: ALBUMIN 3.4 G/DL (3.4-5.0); ANION GAP 10 (8-16); BLOOD UREA NITROGEN 26 MG/DL (7-18); BUN/CREATININE RATIO 32.5 (6.6-38.0); CALCIUM 8.2 MG/DL (8.5-10.1); CHLORIDE 129 MMOL/L (99-107); GLUCOSE 70 MG/DL (70-104); TOTAL CARBON DIOXIDE 31.9 MMOL/L (24-32); eGFR 76 ML/MIN
[2019-07-17 22:39] LABS: POTASSIUM 3.7 MMOL/L (3.5-5.1)
[2019-07-17 22:42] LABS: SODIUM 171 MMOL/L (135-145)
[2019-07-18] VITALS (11 sets, daily range): BP systolic 77–113; BP diastolic 32–72
[2019-07-18 00:25] LABS: ALBUMIN 3.4 G/DL (3.4-5.0); ANION GAP 12 (8-16); BLOOD UREA NITROGEN 25 MG/DL (7-18); BUN/CREATININE RATIO 32.5 (6.6-38.0); CHLORIDE 129 MMOL/L (99-107); CREATININE 0.77 MG/DL (0.40-0.90); GLUCOSE 66 MG/DL (70-104); POTASSIUM 3.3 MMOL/L (3.5-5.1); TOTAL CARBON DIOXIDE 31.4 MMOL/L (24-32); eGFR 80 ML/MIN
[2019-07-18 00:41] LABS: SODIUM 172 MMOL/L (135-145)
[2019-07-18 00:57] LABS: ALBUMIN 3.3 G/DL (3.4-5.0); ANION GAP 12 (8-16); BLOOD UREA NITROGEN 23 MG/DL (7-18); BUN/CREATININE RATIO 25.8 (6.6-38.0); CALCIUM 7.9 MG/DL (8.5-10.1); CHLORIDE 129 MMOL/L (99-107); CREATININE 0.89 MG/DL (0.40-0.90); GLUCOSE 68 MG/DL (70-104); POTASSIUM 3.3 MMOL/L (3.5-5.1); TOTAL CARBON DIOXIDE 29.6 MMOL/L (24-32); eGFR 67 ML/MIN
[2019-07-18 00:58] LABS: SODIUM 171 MMOL/L (135-145)
[2019-07-18 03:28] LABS: ALBUMIN 3.4 G/DL (3.4-5.0); ANION GAP 12 (8-16); BLOOD UREA NITROGEN 22 MG/DL (7-18); BUN/CREATININE RATIO 25.6 (6.6-38.0); CALCIUM 7.8 MG/DL (8.5-10.1); CHLORIDE 128 MMOL/L (99-107); CREATININE 0.86 MG/DL (0.40-0.90); GLUCOSE 70 MG/DL (70-104); POTASSIUM 3.4 MMOL/L (3.5-5.1); TOTAL CARBON DIOXIDE 31.3 MMOL/L (24-32); eGFR 70 ML/MIN
[2019-07-18 03:30] LABS: SODIUM 171 MMOL/L (135-145)
[2019-07-18 05:21] LABS: ALBUMIN 3.3 G/DL (3.4-5.0); ANION GAP 15 (8-16); BLOOD UREA NITROGEN 22 MG/DL (7-18); BUN/CREATININE RATIO 24.7 (6.6-38.0); CALCIUM 7.7 MG/DL (8.5-10.1); CHLORIDE 127 MMOL/L (99-107); CREATININE 0.89 MG/DL (0.40-0.90); GLUCOSE 68 MG/DL (70-104); MAGNESIUM 2.8 MG/DL (1.5-2.4); POTASSIUM 3.2 MMOL/L (3.5-5.1); TOTAL CARBON DIOXIDE 28.1 MMOL/L (24-32); eGFR 67 ML/MIN
[2019-07-18 05:23] LABS: SODIUM 170 MMOL/L (135-145)
[2019-07-18 06:05] LABS: BASOPHILS % (AUTO) 0.4 % (0-1); EOSINOPHILS % (AUTO) 0 % (0-6); HEMOGLOBIN 14.2 g/dl (12.0-16.0); LYMPHOCYTES # (AUTO) 1.4 X10'3 (1.1-4.8); MONOCYTES # (AUTO) 0.7 X10'3 (0-0.9); NEUTROPHILS # (AUTO) 5.9 X10'3 (1.8-7.7); PLATELET COUNT 64 X10'3 (140-440)
[2019-07-18 06:07] LABS: ALBUMIN 3.5 G/DL (3.4-5.0); ANION GAP 14 (8-16); BLOOD UREA NITROGEN 20 MG/DL (7-18); BUN/CREATININE RATIO 23.5 (6.6-38.0); CALCIUM 7.8 MG/DL (8.5-10.1); CHLORIDE 126 MMOL/L (99-107); CREATININE 0.85 MG/DL (0.40-0.90); GLUCOSE 71 MG/DL (70-104); POTASSIUM 3.3 MMOL/L (3.5-5.1); TOTAL CARBON DIOXIDE 29.9 MMOL/L (24-32); eGFR 71 ML/MIN
[2019-07-18 06:10] LABS: HEMATOCRIT 43.2 % (35.0-45.0); MEAN CORPUSCULAR HEMOGLOBIN 31.9 PG (27.0-31.0); MEAN CORPUSCULAR VOLUME 96.7 FL (78-98); MEAN PLATELET VOLUME 13.1 FL (7.4-10.4); MONOCYTES % (AUTO) 8.6 % (2-12); RED BLOOD COUNT 4.46 X10'6 (4.20-5.60); SODIUM 170 MMOL/L (135-145)
[2019-07-18 06:52] LABS: ANISOCYTOSIS 1+; PLATELET ESTIMATE DECREASED; TOTAL CELLS COUNTED 100
[2019-07-18 06:53] LABS: POIKILOCYTOSIS FEW
--- NOTE | 2019-07-18 07:22 | NUR ---
END NOC NOTE Patient has been anxious and resistive to care, no need for restraints. Lab draws for sodium continues every hour; Sodium came down from 174 to 170 on this shift. Patient's potassium is low at 3.3; BIOMETRICIAN Jenny is aware and stated that "we will just watch it for now because the patient isn't able to swallow and IV potassium is made with normal saline." Will pass onto day shift.
[2019-07-18] MEDS: sodium chloride 0.45% 1,000 ML IV SCH ×3 (07:34→22:52)
[2019-07-18] MEDS: K and/or MAG REPLACEMENT MC SCH (08:00)
[2019-07-18] MEDS ORDERED: LORazepam 0.5 MG tablet PO PRN (09:45)
[2019-07-18] MEDS ORDERED: acetaminophen 325mg tablet PO PRN (09:45)
[2019-07-18] MEDS: potassium CL 10mEq/100ml bag 100 ML IV PRN ×2 (10:22→21:50)
--- NOTE | 2019-07-18 11:04 | NUR ---
Paged Dr. Gonzalez re pt's vitals. PAGER ID: [phone] MESSAGE: Pt Michelle Cordon in 3018 temp 104.5, RR 32, pulse 106. Please call me. Thanks! [phone] Amaya CISSE
--- NOTE | 2019-07-18 11:50 | NUR ---
Dr. Gonzalez at bedside. Notified of critical platelet value.
[2019-07-18 11:53] LABS: BASOPHILS % (AUTO) 0.4 % (0-1); EOSINOPHILS % (AUTO) 0.1 % (0-6); HEMATOCRIT 44.7 % (35.0-45.0); HEMOGLOBIN 14.7 g/dl (12.0-16.0); LYMPHOCYTES % (AUTO) 13.2 % (21-51); MEAN CORPUSCULAR HEMOGLOBIN 31.4 PG (27.0-31.0); MEAN CORPUSCULAR HGB CONC 32.8 g/dL (33.0-36.5); MEAN CORPUSCULAR VOLUME 95.8 FL (78-98); MEAN PLATELET VOLUME 12.4 FL (7.4-10.4); MONOCYTES # (AUTO) 0.8 X10'3 (0-0.9); MONOCYTES % (AUTO) 10.5 % (2-12); NEUTROPHILS % (AUTO) 75.8 % (42-75); RED BLOOD COUNT 4.67 X10'6 (4.20-5.60); WHITE BLOOD COUNT 7.9 X10'3 (4.5-11.0)
[2019-07-18 11:56] LABS: PLATELET COUNT 48 X10'3 (140-440)
[2019-07-18 11:56] LABS: ABG BASE EXCESS -1.5 mmol/L (-2.0-3.0); ABG HCO3 24.1 mmol/L (22.0-26.0); ABG OXYGEN SATURATION 46.5 % (95-98); ABG PCO2 (T) 45.7 mmHg (35.0-45.0); ABG PH (T) 7.345 (7.350-7.450); ABG PO2 (T) 28.1 mmHg (83-108); ALLEN'S TEST Positive; FCOHb 0.6 % (0.5-1.5); FLOW 4 L/min; FMetHb 0.2 % (0.3-1.12); FO2Hb 46.1 % (94-100); TOTAL HEMOGLOBIN 14.9 G/dl (12.0-16.0)
--- NOTE | 2019-07-18 11:56 | NUR ---
Critical value from lab. TANNA Conde informed of plt count of 48.
--- NOTE | 2019-07-18 12:00 | NUR ---
Rapid response called after notifying Dr. Gonzalez of change in vital signs. Multiple new orders received.
[2019-07-18] MEDS: acetaminophen 650mg rectal suppository RC PRN ×2 (12:01→18:40)
[2019-07-18 12:07] LABS: ALANINE AMINOTRANSFERASE 38 U/L (12-78); ALBUMIN 3.4 G/DL (3.4-5.0); ALBUMIN/GLOBULIN RATIO 0.9 (1.1-1.5); ALKALINE PHOSPHATASE 116 IU/L (46-116); ASPARTATE AMINO TRANSFERASE 74 U/L (10-37); BILIRUBIN,TOTAL 0.6 MG/DL (0.1-1.0); BLOOD UREA NITROGEN 17 MG/DL (7-18); BUN/CREATININE RATIO 15.6 (6.6-38.0); CALCIUM 7.6 MG/DL (8.5-10.1); CREATININE 1.09 MG/DL (0.40-0.90); GLUCOSE 91 MG/DL (70-104); TOTAL CARBON DIOXIDE 27.6 MMOL/L (24-32); TOTAL PROTEIN 7.4 G/DL (6.4-8.2); eGFR 53 ML/MIN
[2019-07-18 12:11] LABS: PLATELET COUNT 48 X10'3 (140-440)
[2019-07-18 12:13] LABS: POTASSIUM 3.5 MMOL/L (3.5-5.1)
[2019-07-18 12:15] LABS: ABG BASE EXCESS -2.4 mmol/L (-2.0-3.0); ABG HCO3 21.3 mmol/L (22.0-26.0); ABG OXYGEN SATURATION 90.4 % (95-98); ABG PCO2 (T) 38.4 mmHg (35.0-45.0); ABG PH (T) 7.374 (7.350-7.450); ABG PO2 (T) 73.8 mmHg (83-108); ALLEN'S TEST Positive; FCOHb 0.4 % (0.5-1.5); FLOW 4 L/min; FMetHb 0.4 % (0.3-1.12); FO2Hb 89.7 % (94-100); TOTAL HEMOGLOBIN 14.5 G/dl (12.0-16.0)
--- NOTE | 2019-07-18 12:15 | NUR ---
Grcae Dave at bedside. Notified of Na value of 165.
[2019-07-18 12:18] LABS: ANION GAP 14 (8-16); CHLORIDE 123 MMOL/L (99-107)
[2019-07-18 12:20] LABS: SODIUM 165 MMOL/L (135-145)
[2019-07-18] MEDS ORDERED: levetiracetam-NS 1000mg/100ml 100 ML IV ONE (12:40)
[2019-07-18] MEDS ORDERED: potassium Cl 20 mEq SR tablet OGT PRN ×2 (12:45)
[2019-07-18] MEDS ORDERED: LevETIRAcetam 1500 MG in NORMAL SALINE 100ml bag IV SCH ×2 (12:45→20:00)
[2019-07-18] MEDS: LORazepam 0.5 MG tablet OGT SCH (12:45)
[2019-07-18] MEDS ORDERED: acetaminophen 325mg tablet OGT PRN (12:45)
[2019-07-18] MEDS ORDERED: LORazepam 0.5 MG tablet OGT PRN (12:45)
[2019-07-18] MEDS: PARoxetine 10mg tablet OGT SCH (12:45)
[2019-07-18] MEDS ORDERED: mag hydrox/Alum hydrox/simeth 30ml oral suspension OGT PRN (12:58)
[2019-07-18 13:00] LABS: D-DIMER 1.79 MG/L FEU (0-0.50); PARTIAL THROMBOPLASTIN TIME 27 SECONDS (22-32)
[2019-07-18] MEDS ORDERED: NORMAL SALINE IV SCH ×2 (13:00→21:00)
[2019-07-18] MEDS ORDERED: PHENOBARBITAL IV SCH ×2 (13:00→21:00)
[2019-07-18] MEDS ORDERED: Levetiracetam-NS 500mg/100ml 100 ML IV ONE (13:00)
--- NOTE | 2019-07-18 13:44 | NUR ---
Malnutrition consult: Pt admit w/ dehydration Na 174 on arrival. Hx CP and lives at board and care, low PO past months w/ 10 pound wt loss, and poor fluid intake per EMR. Pt current wt is pt stated and unable to get bed scale wt since bed was not zero'd prior to pt admit per RN. Prior wt 31kg Gurney scale 05/20/18 and current "pt stated" 38.6 kg. Initially placed on pureed diet but now NPO pending SP BSS in AM. Pt had rapid response called this AM per RN and possible to transfer to critical care. If transferred will be able to get new accurate wt. Even though CP hx pt is still visibly cachectic and given hx poor PO in addition to 10 pound wt loss past months still at least 10% UBW loss severe pt qualifies for severe malnutrition at this time; notified. Pt not appropriate for malnutrition ed given hx. Pt would likely benefit from PEG if PO remains poor in order to provide optimal repletion nutrition and meet nutrition needs long-term. Will continue to monitor. Rec: 1. advance diet per STEAM TENDER to regular 2. IF okay to have PO diet; ONS for additional needs 3. IF NPO and/or prolonged low PO continues; would likely benefit fro mPEG in order to adequately meet repletion nutrition needs and long-term med/nutrition delivery needs 4. daily scaled wts Addendum: 07/18/19 at 1345 by Jose De Jesus Dumont RD Amended: Links added.
[2019-07-18] MEDS: pantoprazole 40 MG vial IV SCH (16:24)
[2019-07-18] MEDS: piperacillin/tazo 3.375gm/50ml 50 ML IV SCH (16:25)
--- NOTE | 2019-07-18 17:14 | NUR ---
TF Consult: NGTF to start today per hostel parent via corpak. Still pending patency of proper placement per RN. [id number] water flushes per hostel parent. Recs below given pt needs. Will monitor for TF tolerance and signs of refeeding syndrome given poor PO hx and malnutrition. Malnutrition consult: Pt admit w/ dehydration Na 174 on arrival. Hx CP and lives at board and care, low PO past months w/ 10 pound wt loss, and poor fluid intake per EMR. Pt current wt is pt stated and unable to get bed scale wt since bed was not zero'd prior to pt admit per RN. Prior wt 31kg Gurney scale 05/20/18 and current "pt stated" 38.6 kg. Initially placed on pureed diet but now NPO pending SP BSS in AM. Pt had rapid response called this AM per RN and possible to transfer to critical care. If transferred will be able to get new accurate wt. Even though CP hx pt is still visibly cachectic and given hx poor PO in addition to 10 pound wt loss past months still at least 10% UBW loss severe pt qualifies for severe malnutrition at this time; notified. Pt not appropriate for malnutrition ed given hx. Pt would likely benefit from PEG if PO remains poor in order to provide optimal repletion nutrition and meet nutrition needs long-term. Will continue to monitor. Rec: 1. Once corpak verified post-pyloric; NGTF using Jevity 1.2 at 55ml/hr goal; to provide 1320ml fluid, 1069ml free water, 1584kcals, and 73g protein. Initiate at 20ml/hr and advance 20ml Q8 to goal as tolerated. 2. water flush 200ml Q4 per hostel parent 3. PALB Q /; daily wts 4. monitor for signs of refeeding syndrome given malnutrition 5. IF NPO and/or prolonged low PO continues; would likely benefit from PEG in order to adequately meet repletion nutrition needs and long-term med/nutrition delivery needs Addendum: 07/18/19 at 1714 [address] Jose De Jesus Dumont RD Amended: Links added.
[2019-07-18 17:55] LABS: BASOPHILS % (AUTO) 0.3 % (0-1); EOSINOPHILS % (AUTO) 0 % (0-6); MEAN CORPUSCULAR HGB CONC 32.7 g/dL (33.0-36.5); RED CELL DISTRIBUTION WIDTH 15.3 % (11.5-14.5)
[2019-07-18 17:57] LABS: HEMATOCRIT 43.1 % (35.0-45.0); HEMOGLOBIN 14.1 g/dl (12.0-16.0); LYMPHOCYTES # (AUTO) 1.7 X10'3 (1.1-4.8); LYMPHOCYTES % (AUTO) 19.8 % (21-51); MEAN CORPUSCULAR HEMOGLOBIN 31.3 PG (27.0-31.0); MEAN CORPUSCULAR VOLUME 95.9 FL (78-98); MEAN PLATELET VOLUME 12.2 FL (7.4-10.4); MONOCYTES # (AUTO) 1.2 X10'3 (0-0.9); MONOCYTES % (AUTO) 13.8 % (2-12); NEUTROPHILS # (AUTO) 5.7 X10'3 (1.8-7.7); NEUTROPHILS % (AUTO) 66.1 % (42-75); RED BLOOD COUNT 4.49 X10'6 (4.20-5.60); WHITE BLOOD COUNT 8.6 X10'3 (4.5-11.0)
[2019-07-18 18:02] LABS: ANION GAP 15 (8-16); BLOOD UREA NITROGEN 14 MG/DL (7-18); BUN/CREATININE RATIO 15.1 (6.6-38.0); CALCIUM 7.6 MG/DL (8.5-10.1); CHLORIDE 123 MMOL/L (99-107); CREATININE 0.93 MG/DL (0.40-0.90); GLUCOSE 81 MG/DL (70-104); POTASSIUM 3.6 MMOL/L (3.5-5.1); TOTAL CARBON DIOXIDE 25.3 MMOL/L (24-32); eGFR 64 ML/MIN
[2019-07-18 18:07] LABS: SODIUM 163 MMOL/L (135-145)
[2019-07-18 18:22] LABS: PLATELET COUNT 49 X10'3 (140-440)
--- NOTE | 2019-07-18 18:22 | NUR ---
Paged Dr. Gonzalez re critical lab values. PAGER ID: [phone] MESSAGE: Pt Michelle Cordon in 3018. Na decreased to 163, platelets 49. Thanks! Amaya CISSE [phone]
--- NOTE | 2019-07-18 18:24 | NUR ---
Problems reprioritized. Patient report given, questions answered & plan of care reviewed with TANNA Hernandez.
[2019-07-18] MEDS ORDERED: normal saline 1000ml 1,000 ML IV ONE (18:40)
[2019-07-18] MEDS ORDERED: albumin (Human) 5% 250ml 250 ML IV ONE ×2 (18:40→19:55)
[2019-07-18] MEDS ORDERED: lactulose 20gm/30ml cup PO ONE (18:50)
[2019-07-18] MEDS ORDERED: busPIRone 5mg tablet OGT SCH (20:00)
[2019-07-18] MEDS ORDERED: busPIRone 5mg tablet PO SCH (20:00)
[2019-07-18] MEDS ORDERED: levetiracetam 250mg tablet PO SCH (20:00)
[2019-07-18] MEDS ORDERED: docusate sod 100mg capsule PO SCH (20:00)
[2019-07-18 20:45] LABS: ABG BASE EXCESS -4.7 mmol/L (-2.0-3.0); ABG HCO3 19.6 mmol/L (22.0-26.0); ABG PCO2 (T) 34.8 mmHg (35.0-45.0); ABG PH (T) 7.371 (7.350-7.450); ABG PO2 (T) 55.1 mmHg (83-108); FCOHb 0.3 % (0.5-1.5); FLOW 8 L/min; FMetHb 0.2 % (0.3-1.12); FO2Hb 84.6 % (94-100); PATIENT TEMPERATURE 37.8; TOTAL HEMOGLOBIN 12.8 G/dl (12.0-16.0)
[2019-07-18 20:58] LABS: BASOPHILS % (AUTO) 0.3 % (0-1); EOSINOPHILS % (AUTO) 0 % (0-6); HEMATOCRIT 37.3 % (35.0-45.0); HEMOGLOBIN 12.3 g/dl (12.0-16.0); LYMPHOCYTES # (AUTO) 1.6 X10'3 (1.1-4.8); LYMPHOCYTES % (AUTO) 24.4 % (21-51); MEAN CORPUSCULAR HEMOGLOBIN 32.2 PG (27.0-31.0); MEAN CORPUSCULAR HGB CONC 33.1 g/dL (33.0-36.5); MEAN CORPUSCULAR VOLUME 97.2 FL (78-98); MEAN PLATELET VOLUME 11.9 FL (7.4-10.4); MONOCYTES # (AUTO) 0.5 X10'3 (0-0.9); MONOCYTES % (AUTO) 7.8 % (2-12); NEUTROPHILS # (AUTO) 4.3 X10'3 (1.8-7.7); NEUTROPHILS % (AUTO) 67.5 % (42-75); RED BLOOD COUNT 3.83 X10'6 (4.20-5.60); RED CELL DISTRIBUTION WIDTH 15.1 % (11.5-14.5); WHITE BLOOD COUNT 6.4 X10'3 (4.5-11.0)
[2019-07-18] MEDS ORDERED: normal saline 500ml IV soln 500 ML IV ONE (21:00)
[2019-07-18] MEDS ORDERED: phenobarbital 30mg tablet PO SCH ×2 (21:00)
[2019-07-18 21:02] LABS: PLATELET COUNT 43 X10'3 (140-440)
[2019-07-18 21:14] LABS: ALANINE AMINOTRANSFERASE 36 U/L (12-78); ALBUMIN 3.2 G/DL (3.4-5.0); ALKALINE PHOSPHATASE 79 IU/L (46-116); ANION GAP 15 (8-16); ASPARTATE AMINO TRANSFERASE 91 U/L (10-37); BILIRUBIN,TOTAL 0.8 MG/DL (0.1-1.0); BLOOD UREA NITROGEN 13 MG/DL (7-18); BUN/CREATININE RATIO 12.7 (6.6-38.0); CALCIUM 7.2 MG/DL (8.5-10.1); CHLORIDE 124 MMOL/L (99-107); CREATININE 1.02 MG/DL (0.40-0.90); GLUCOSE 81 MG/DL (70-104); TOTAL CARBON DIOXIDE 24.9 MMOL/L (24-32); TOTAL PROTEIN 6.5 G/DL (6.4-8.2); eGFR 58 ML/MIN
--- NOTE | 2019-07-18 21:15 | NUR ---
I have received report from Mary Cohen on PCU and had the opportunity to ask questions. Room is set up and awaiting PT arrival.
[2019-07-18 21:22] LABS: POTASSIUM 2.9 MMOL/L (3.5-5.1); SODIUM 164 MMOL/L (135-145)
[2019-07-18] MEDS: docusate sodium 100mg/10ml UD cup OGT SCH (22:06)
[2019-07-18] MEDS: oxcarbazepine 150mg tablet OGT SCH (22:52)
--- NOTE | 2019-07-18 23:00 | NUR ---
PT arrived to Unit around 2129. PT was transferred to ICU bed and placed on bedside monitor. Received in report that PT was receiving 7L O2 to high flow NC with saulter but the saulter did not come down with PT, but when PT arrived she was on 15L O2. RT notified and went up to PCU to get the Saulter PT was using. O2 probe was placed on PT LT ear, d/t not having accurate reading with the one on her finger. O2 sat reading between high 80's-low 90's. Temp sinclair in place with a temp of 39.0 on arrival, per report PT received a rectal Tylenol before being transferred. Sitter is at bedside. Bed is locked and low. Will continue to monitor. Attempted to flush Corpak to LT nare but immediately met resistance. Multiple attempts made with no success. RACQUEL Myrick notified and order received to remove existing one and replace it. New Corpak placed to LT nare, PT tolerated well. KUB obtained and verbal order received from RACQUEL Myrick for the OK to start TF and give meds via Corpak.
--- NOTE | 2019-07-18 23:23 | NUR ---
Upon receiveing report, I noticed patient had a temperature of 102.7 A and a blood pressure of 89/43 (55). I went to patient room and retook a rectal temp noting it to be 104.8, BP 82/40, pulse 1- Addendum: 07/18/19 at 2352 by Mary Swan RN ...pulse 100, spo2 90% on 4 L. Patient o2 sat began to decline into 80's. Paged RT, put patient on high flow at 7 L. Patient BP remained low. Received orders from Grace Dave to give patient 250 mL bolus of NS, also to give patient 1/ 250 mL bottle of albumin. Patient BP remained low with systolic of 78. Incident happened where a helping nurse did not attach albumin line to patient Y site. I noticed this upon entering the room and half the bottle had run onto the bed. I administered the rest of the 250 mL bottle of albumin which was approximately 125 mL left. I then got orders from August COURTROOM DEPUTY to give one more 250 mL bottle of NS. Patient BP remained low after albumin was administered. AugRACQUEL gave orders for 500 mL bolus of NS. During these events, respiratory arrived to obtain ABG per order from RACQUEL Small. X-ray was also called into room and X-ray was obtained. New set of labs was also obtained on this patient. Patient blood pressure remained low with a systolic in the 70's. AugustRACQUEL was present for this entire time. I started a new IV in patient L AC 20 G and patient was started on Keppra per order. During these events the patient had a what seemed to me a tonic seizure lasting about 10 seconds. I BS was also checked on this patient which was 72. I was told in report that we needed to get another image from x-ray to confirm placement of patients feeding tube, however, was informed that this was not the case by August, COURTROOM DEPUTY. The patient was very unstable and I did remain at bedside to hang fluids and obtain vitals signs, help place x-ray board, and start a new IV, and give information to the team to the best of my knowledge. Patient was sent down to ICU patient report given to TANNA Perez to the absolute best of my knowledge of this patient. I spent a total of 3 hrs in this patient's room from the start of my shift at 1800 to approximately 2140 while also delegating tasks to my fellow nurses to help care for my new admit from ER and other patient.
[2019-07-18] MEDS: LORazepam 2 mg/ml vial IV PRN (23:27)
[2019-07-18] MEDS: POTASSIUM BICARB 20meq eff tab 20 MEQ TABLET.EFF OGT PRN (23:28)
[2019-07-19] VITALS (24 sets, daily range): BP systolic 76–126; BP diastolic 37–70
[2019-07-19] MEDS: piperacillin/tazo 3.375gm/50ml 50 ML IV SCH ×3 (00:52→16:20)
[2019-07-19 01:30] LABS: ALBUMIN 3.3 G/DL (3.4-5.0); ANION GAP 11 (8-16); BLOOD UREA NITROGEN 13 MG/DL (7-18); BUN/CREATININE RATIO 12.5 (6.6-38.0); CALCIUM 7.1 MG/DL (8.5-10.1); CHLORIDE 125 MMOL/L (99-107); CREATININE 1.04 MG/DL (0.40-0.90); GLUCOSE 117 MG/DL (70-104); MAGNESIUM 2.4 MG/DL (1.5-2.4); POTASSIUM 3.8 MMOL/L (3.5-5.1); PREALBUMIN 13.2 MG/DL (19-36); eGFR 56 ML/MIN
[2019-07-19 01:31] LABS: SODIUM 163 MMOL/L (135-145)
[2019-07-19] MEDS ORDERED: normal saline 500ml IV soln 500 ML IV ONE (02:35)
[2019-07-19] MEDS: acetaminophen 325mg tablet OGT PRN ×2 (02:39→18:05)
--- NOTE | 2019-07-19 02:40 | NUR ---
FITTER UP Elen called and in formed of PTs BP of 77/49. BP has been trending down. Order received for 500mL bolus of NS.
[2019-07-19 04:25] LABS: EOSINOPHILS % (AUTO) 0 % (0-6); HEMOGLOBIN 11.3 g/dl (12.0-16.0); LYMPHOCYTES % (AUTO) 24.3 % (21-51); MEAN PLATELET VOLUME 13.7 FL (7.4-10.4); MONOCYTES # (AUTO) 0.9 X10'3 (0-0.9); MONOCYTES % (AUTO) 11.6 % (2-12); RED CELL DISTRIBUTION WIDTH 15.2 % (11.5-14.5)
[2019-07-19 04:27] LABS: BASOPHILS % (AUTO) 0.3 % (0-1); HEMATOCRIT 34.1 % (35.0-45.0); LYMPHOCYTES # (AUTO) 1.9 X10'3 (1.1-4.8); MEAN CORPUSCULAR HEMOGLOBIN 31.9 PG (27.0-31.0); MEAN CORPUSCULAR HGB CONC 33.3 g/dL (33.0-36.5); MEAN CORPUSCULAR VOLUME 96.1 FL (78-98); NEUTROPHILS # (AUTO) 5.1 X10'3 (1.8-7.7); NEUTROPHILS % (AUTO) 63.8 % (42-75); RED BLOOD COUNT 3.55 X10'6 (4.20-5.60)
[2019-07-19 04:33] LABS: ALBUMIN 2.5 G/DL (3.4-5.0); ANION GAP 11 (8-16); BLOOD UREA NITROGEN 12 MG/DL (7-18); CALCIUM 6.5 MG/DL (8.5-10.1); CHLORIDE 125 MMOL/L (99-107); CREATININE 0.92 MG/DL (0.40-0.90); GLUCOSE 121 MG/DL (70-104); POTASSIUM 3.5 MMOL/L (3.5-5.1); TOTAL CARBON DIOXIDE 25.1 MMOL/L (24-32); eGFR 65 ML/MIN
[2019-07-19 04:37] LABS: SODIUM 161 MMOL/L (135-145)
[2019-07-19] MEDS ORDERED: albumin (Human) 5% 250ml 250 ML IV ONE (04:40)
[2019-07-19 04:44] LABS: PLATELET COUNT 40 X10'3 (140-440)
--- NOTE | 2019-07-19 04:45 | NUR ---
RACQUEL Myrick called d/t receiving critical PLT of 40. No new orders received at this time. Also informed her of PTs BP remaining low despite receiving a 500mlNS bolus. Order received to give 250ml of 5% albumin. Will continue to monitor.
[2019-07-19] MEDS: sodium chloride 0.45% 1,000 ML IV SCH ×2 (06:07→11:28)
--- NOTE | 2019-07-19 06:27 | NUR ---
Problems reprioritized. Patient report given, questions answered & plan of care reviewed with Trice CISSE.
--- NOTE | 2019-07-19 06:56 | NUR ---
Patient in room ICU 2040. I have received report from Bakari CISSE and had the opportunity to ask questions and assume patient care with preceptor Kala Mercer RN.. Addendum: 07/19/19 at 0657 by Trice Can RN Amended: Links added.
[2019-07-19 07:05] LABS: TOTAL CELLS COUNTED 100
[2019-07-19 07:07] LABS: LARGE PLATELETS FEW; PLATELET ESTIMATE DECREASED
[2019-07-19] MEDS: pantoprazole 40 MG vial IV SCH (07:35)
[2019-07-19] MEDS: LevETIRAcetam 500 MG in NORMAL SALINE 100ml IV.SOLN IV SCH ×2 (07:37→20:53)
[2019-07-19] MEDS: levetiracetam-NS 1000mg/100ml 100 ML IV SCH ×2 (07:37→20:53)
[2019-07-19] MEDS: levoTHYROXINE 112mcg tablet OGT SCH (07:40)
[2019-07-19] MEDS: busPIRone 5mg tablet OGT SCH ×2 (07:40→20:57)
[2019-07-19] MEDS: docusate sodium 100mg/10ml UD cup OGT SCH ×2 (07:40→20:57)
[2019-07-19] MEDS: MULTIVIT-MIN/FERROUS GLUCONATE 9 MG/15 ML LIQUID OGT SCH (07:40)
[2019-07-19] MEDS: PARoxetine 10mg tablet OGT SCH (07:41)
[2019-07-19] MEDS: oxcarbazepine 150mg tablet OGT SCH ×2 (07:41→20:57)
[2019-07-19] MEDS: LORazepam 0.5 MG tablet OGT SCH (08:00)
[2019-07-19] MEDS: K and/or MAG REPLACEMENT MC SCH (08:00)
[2019-07-19] MEDS ORDERED: pantoprazole 40mg Tablet.DR PO SCH (08:00)
[2019-07-19] MEDS ORDERED: LORazepam 0.5 MG tablet PO SCH (08:00)
[2019-07-19] MEDS ORDERED: PARoxetine 30mg tablet PO SCH (08:00)
[2019-07-19] MEDS ORDERED: levoTHYROXINE 112mcg tablet PO SCH (08:00)
[2019-07-19] MEDS ORDERED: phenobarbital 30mg tablet PO SCH ×2 (08:00)
[2019-07-19] MEDS ORDERED: desmopressin 0.1mg/ml nasal spray 5ml btl NS ONE (08:30)
--- NOTE | 2019-07-19 08:50 | NUR ---
Pt. SP02 decreased to the 70s. Pt. was bagged for a few minutes then placed on a non-rebreather mask. Dr. Anaya notified. Orders received. ABG being ontained now.
[2019-07-19 09:46] LABS: ABG BASE EXCESS -1.9 mmol/L (-2.0-3.0); ABG HCO3 24.6 mmol/L (22.0-26.0); ABG OXYGEN SATURATION 51.7 % (95-98); ABG PCO2 (T) 49.1 mmHg (35.0-45.0); ABG PH (T) 7.318 (7.350-7.450); ABG PO2 (T) < 28.0 mmHg (83-108); FCOHb 0.2 % (0.5-1.5); FLOW 15 L/min; FMetHb 0.3 % (0.3-1.12); FO2Hb 51.4 % (94-100); TOTAL HEMOGLOBIN 13.5 G/dl (12.0-16.0)
[2019-07-19] MEDS ORDERED: furosemide 20 MG/2 ML vial IV ONE (10:30)
[2019-07-19 10:46] LABS: ABG BASE EXCESS -3.5 mmol/L (-2.0-3.0); ABG OXYGEN SATURATION 91.3 % (95-98); ABG PCO2 (T) 41.6 mmHg (35.0-45.0); ABG PH (T) 7.342 (7.350-7.450); ABG PO2 (T) 62.5 mmHg (83-108); FCOHb 0.1 % (0.5-1.5); FMetHb 0.2 % (0.3-1.12); RESPIRATORY RATE (OBSERVED) 20 b/min; TOTAL HEMOGLOBIN 13.4 G/dl (12.0-16.0)
[2019-07-19] MEDS: acetaminophen 650mg rectal suppository RC PRN (12:18)
--- NOTE | 2019-07-19 12:23 | NUR ---
Medicated with rectal acetaminophen for temp> 101.
[2019-07-19 12:37] LABS: ALBUMIN 2.9 G/DL (3.4-5.0); ANION GAP 7 (8-16); BLOOD UREA NITROGEN 10 MG/DL (7-18); BUN/CREATININE RATIO 11.4 (6.6-38.0); CHLORIDE 116 MMOL/L (99-107); CREATININE 0.88 MG/DL (0.40-0.90); GLUCOSE 200 MG/DL (70-104); POTASSIUM 3.6 MMOL/L (3.5-5.1); SODIUM 153 MMOL/L (135-145); eGFR 68 ML/MIN
--- NOTE | 2019-07-19 14:10 | NUR ---
Pt's father called for an update. Missy older adult social work specialist called and stated pt's penitentiaryhome aid/worker was going to call pt's father and determine plan of care for pt. as pt.'s condition is declining.
--- NOTE | 2019-07-19 14:14 | NUR ---
PICC nurse here to place PICC line. Addendum: 07/19/19 at 1414 by Trice Can RN disregard entry-wrong pt.
--- NOTE | 2019-07-19 14:15 | NUR ---
RT placed pt. on aerosol mask 70% and 10L.
[2019-07-19] MEDS ORDERED: vancomycin/NS 1 GM ADD-VANTAGE 250 ML IV ONE (17:00)
--- NOTE | 2019-07-19 17:29 | NUR ---
Patient's father Tong here to see pt. and speak with Dr. Anaya. Pt's code status changed to DNR per father's request.
--- NOTE | 2019-07-19 18:09 | NUR ---
Medicated with Tylenol for temp 39.0
[2019-07-19 18:39] LABS: ALBUMIN 2.6 G/DL (3.4-5.0); ANION GAP 6 (8-16); BLOOD UREA NITROGEN 7 MG/DL (7-18); BUN/CREATININE RATIO 8.9 (6.6-38.0); CALCIUM 7.1 MG/DL (8.5-10.1); CHLORIDE 111 MMOL/L (99-107); CREATININE 0.79 MG/DL (0.40-0.90); GLUCOSE 189 MG/DL (70-104); POTASSIUM 3.2 MMOL/L (3.5-5.1); SODIUM 147 MMOL/L (135-145); eGFR 77 ML/MIN
[2019-07-19] MEDS ORDERED: albumin (human) 25% 100 ML IV solution IV ONE (19:40)
--- NOTE | 2019-07-19 19:47 | NUR ---
Patient's blood pressure 79/44. Elen ENGAGEMENT LIAISON notified, received order for albumin
[2019-07-19] MEDS ORDERED: heparin, porcine 5000 units/ml vial SQ SCH (20:00)
[2019-07-19] MEDS: heparin, porcine 5000 units/ml vial SQ SCH (20:00)
[2019-07-19] MEDS: lactobacillus rhamnosus 10,000 MMU CELLS/CAPSULE PO SCH (20:57)
[2019-07-19] MEDS: phenobarbital 30mg tablet OGT SCH (21:09)
[2019-07-19] MEDS ORDERED: dextrose ORAL solution 15 GM/59 ML bottle PO PRN ×2 (22:45)
[2019-07-19] MEDS ORDERED: dextrose 50%-water 50ml dispensing syringe IV PRN ×2 (22:45)
[2019-07-19] MEDS ORDERED: glucagon, human recombinant 1mg kit SUBCUT PRN (22:45)
[2019-07-20] VITALS (24 sets, daily range): BP systolic 78–116; BP diastolic 41–67
[2019-07-20 00:41] LABS: ABG BASE EXCESS -1.1 mmol/L (-2.0-3.0); ABG HCO3 22.4 mmol/L (22.0-26.0); ABG OXYGEN SATURATION 90.5 % (95-98); ABG PCO2 (T) 34.4 mmHg (35.0-45.0); ABG PH (T) 7.434 (7.350-7.450); ABG PO2 (T) 59.1 mmHg (83-108); ALLEN'S TEST Positive; FCOHb 0.3 % (0.5-1.5); FLOW 15 L/min; FMetHb 0.2 % (0.3-1.12); PATIENT TEMPERATURE 37.7; TOTAL HEMOGLOBIN 11.9 G/dl (12.0-16.0)
[2019-07-20] MEDS: piperacillin/tazo 3.375gm/50ml 50 ML IV SCH ×3 (01:24→07:48)
[2019-07-20] MEDS: sodium chloride 0.45% 1,000 ML IV SCH ×3 (01:42→22:20)
[2019-07-20] MEDS: insulin regular, human vial - multi-dose SQ SCH ×2 (02:19→07:57)
[2019-07-20] MEDS: acetaminophen 650mg rectal suppository RC PRN ×2 (03:18→20:04)
[2019-07-20 05:11] LABS: BASOPHILS % (AUTO) 0.3 % (0-1); EOSINOPHILS # (AUTO) 0.1 X10'3 (0-0.9); MONOCYTES # (AUTO) 0.4 X10'3 (0-0.9)
[2019-07-20 05:14] LABS: EOSINOPHILS % (AUTO) 0.9 % (0-6); HEMATOCRIT 34.5 % (35.0-45.0); HEMOGLOBIN 11.6 g/dl (12.0-16.0); LYMPHOCYTES % (AUTO) 13.7 % (21-51); MEAN CORPUSCULAR HGB CONC 33.8 g/dL (33.0-36.5); MEAN CORPUSCULAR VOLUME 94.7 FL (78-98); MEAN PLATELET VOLUME 12.7 FL (7.4-10.4); MONOCYTES % (AUTO) 4.9 % (2-12); NEUTROPHILS % (AUTO) 80.2 % (42-75); RED BLOOD COUNT 3.64 X10'6 (4.20-5.60); RED CELL DISTRIBUTION WIDTH 14.5 % (11.5-14.5); WHITE BLOOD COUNT 7.5 X10'3 (4.5-11.0)
[2019-07-20 05:24] LABS: PLATELET COUNT 30 X10'3 (140-440)
[2019-07-20 05:32] LABS: ALBUMIN 2.5 G/DL (3.4-5.0); ANION GAP 6 (8-16); BLOOD UREA NITROGEN 8 MG/DL (7-18); BUN/CREATININE RATIO 12.3 (6.6-38.0); CHLORIDE 107 MMOL/L (99-107); CREATININE 0.65 MG/DL (0.40-0.90); GLUCOSE 147 MG/DL (70-104); SODIUM 142 MMOL/L (135-145); TOTAL CARBON DIOXIDE 28.6 MMOL/L (24-32); eGFR > 90 ML/MIN
[2019-07-20 06:04] LABS: PLATELET ESTIMATE DECREASED; TOTAL CELLS COUNTED 100
[2019-07-20 06:06] LABS: SCHISTOCYTES FEW
[2019-07-20 06:11] LABS: LARGE PLATELETS FEW; POTASSIUM 2.9 MMOL/L (3.5-5.1)
[2019-07-20] MEDS: POTASSIUM BICARB 20meq eff tab 20 MEQ TABLET.EFF OGT PRN (06:16)
--- NOTE | 2019-07-20 06:30 | NUR ---
Effervescent K given by corpak.Pt. report given to day shift RN
--- NOTE | 2019-07-20 06:51 | NUR ---
Patient in room ICU 2040. I have received report from Night RN and had the opportunity to ask questions and assume patient care.
[2019-07-20] MEDS: levetiracetam-NS 1000mg/100ml 100 ML IV SCH ×2 (07:44→20:27)
[2019-07-20] MEDS: LevETIRAcetam 500 MG in NORMAL SALINE 100ml IV.SOLN IV SCH ×2 (07:44→23:10)
[2019-07-20] MEDS: PARoxetine 10mg tablet OGT SCH (07:45)
[2019-07-20] MEDS: docusate sodium 100mg/10ml UD cup OGT SCH ×2 (07:45→21:26)
[2019-07-20] MEDS: pantoprazole 40 MG vial IV SCH (07:46)
[2019-07-20] MEDS: levoTHYROXINE 112mcg tablet OGT SCH (07:47)
[2019-07-20] MEDS: oxcarbazepine 150mg tablet OGT SCH ×2 (07:47→21:26)
[2019-07-20] MEDS: busPIRone 5mg tablet OGT SCH ×2 (07:47→21:26)
[2019-07-20] MEDS: lactobacillus rhamnosus 10,000 MMU CELLS/CAPSULE PO SCH ×2 (07:47→21:26)
[2019-07-20] MEDS: K and/or MAG REPLACEMENT MC SCH (07:48)
[2019-07-20] MEDS: LORazepam 0.5 MG tablet OGT SCH (07:48)
[2019-07-20] MEDS: heparin, porcine 5000 units/ml vial SQ SCH ×2 (07:49→20:00)
[2019-07-20] MEDS: MULTIVIT-MIN/FERROUS GLUCONATE 9 MG/15 ML LIQUID OGT SCH (07:52)
[2019-07-20] MEDS: phenobarbital 30mg tablet OGT SCH ×2 (07:52→22:17)
[2019-07-20] MEDS: vancomycin inj. 750 MG in normal saline 250ml IV soln 250 ML IV SCH ×2 (08:00→20:09)
[2019-07-20 14:36] LABS: ALBUMIN 2.5 G/DL (3.4-5.0); ANION GAP 6 (8-16); BLOOD UREA NITROGEN 8 MG/DL (7-18); BUN/CREATININE RATIO 13.1 (6.6-38.0); CALCIUM 7.4 MG/DL (8.5-10.1); CHLORIDE 104 MMOL/L (99-107); CREATININE 0.61 MG/DL (0.40-0.90); GLUCOSE 120 MG/DL (70-104); POTASSIUM 3.7 MMOL/L (3.5-5.1); SODIUM 140 MMOL/L (135-145); TOTAL CARBON DIOXIDE 30.1 MMOL/L (24-32); eGFR > 90 ML/MIN
[2019-07-20] MEDS: insulin glargine (Lantus) pen - multi-dose SQ SCH (21:00)
--- NOTE | 2019-07-20 23:28 | NUR ---
This RN called August advising that pt BP 84/49 and 79/47 on recheck. No orders received at this time.
[2019-07-20] MEDS ORDERED: albumin (human) 25% 100 ML IV solution IV ONE (23:30)
[2019-07-21] VITALS (24 sets, daily range): BP systolic 78–116; BP diastolic 44–84
[2019-07-21] MEDS: piperacillin/tazo 3.375gm/50ml 50 ML IV SCH (01:09)
--- NOTE | 2019-07-21 05:20 | NUR ---
This RN called August advising of pt elevated BP diastolic 104, advised orders will follow. Addendum: 07/21/19 at 0649 by Yaya Cabello RN note entered on incorrect patient
[2019-07-21 05:51] LABS: ANION GAP 9 (8-16); BLOOD UREA NITROGEN 7 MG/DL (7-18); BUN/CREATININE RATIO 11.9 (6.6-38.0); CALCIUM 7.7 MG/DL (8.5-10.1); CHLORIDE 106 MMOL/L (99-107); CREATININE 0.59 MG/DL (0.40-0.90); GLUCOSE 134 MG/DL (70-104); MAGNESIUM 2.2 MG/DL (1.5-2.4); POTASSIUM 3.4 MMOL/L (3.5-5.1); SODIUM 142 MMOL/L (135-145); TOTAL CARBON DIOXIDE 27.1 MMOL/L (24-32); eGFR > 90 ML/MIN
--- NOTE | 2019-07-21 06:37 | NUR ---
Problems reprioritized. Patient report given, questions answered & plan of care reviewed with Juany CISSE.
--- NOTE | 2019-07-21 06:44 | NUR ---
Problems reprioritized. Patient report given, questions answered & plan of care reviewed with Amaya CISSE. Addendum: 07/21/19 at 0647 by Yaya Cabello RN error not written on incorrect patient
[2019-07-21] MEDS: docusate sodium 100mg/10ml UD cup OGT SCH ×2 (08:00→20:01)
[2019-07-21] MEDS: K and/or MAG REPLACEMENT MC SCH (08:00)
[2019-07-21] MEDS: phenobarbital 30mg tablet OGT SCH ×2 (08:00→22:44)
[2019-07-21] MEDS: heparin, porcine 5000 units/ml vial SQ SCH ×2 (08:00→20:00)
[2019-07-21 08:11] LABS: BASOPHILS % (AUTO) 0.2 % (0-1); HEMATOCRIT 35.6 % (35.0-45.0); MONOCYTES # (AUTO) 0.6 X10'3 (0-0.9); MONOCYTES % (AUTO) 7.1 % (2-12)
[2019-07-21 08:12] LABS: EOSINOPHILS % (AUTO) 0.3 % (0-6); LYMPHOCYTES # (AUTO) 0.7 X10'3 (1.1-4.8); LYMPHOCYTES % (AUTO) 8.6 % (21-51); MEAN CORPUSCULAR HEMOGLOBIN 31.7 PG (27.0-31.0); MEAN CORPUSCULAR HGB CONC 33.8 g/dL (33.0-36.5); MEAN CORPUSCULAR VOLUME 93.6 FL (78-98); MEAN PLATELET VOLUME 12.8 FL (7.4-10.4); NEUTROPHILS # (AUTO) 7.2 X10'3 (1.8-7.7); NEUTROPHILS % (AUTO) 83.8 % (42-75); PLATELET COUNT 55 X10'3 (140-440); RED CELL DISTRIBUTION WIDTH 14.2 % (11.5-14.5); WHITE BLOOD COUNT 8.6 X10'3 (4.5-11.0)
[2019-07-21 08:24] LABS: ALBUMIN 2.8 G/DL (3.4-5.0); ANION GAP 5 (8-16); BLOOD UREA NITROGEN 8 MG/DL (7-18); BUN/CREATININE RATIO 13.1 (6.6-38.0); CALCIUM 7.5 MG/DL (8.5-10.1); CHLORIDE 107 MMOL/L (99-107); CREATININE 0.61 MG/DL (0.40-0.90); GLUCOSE 122 MG/DL (70-104); POTASSIUM 3.4 MMOL/L (3.5-5.1); SODIUM 143 MMOL/L (135-145); TOTAL CARBON DIOXIDE 31.4 MMOL/L (24-32); eGFR > 90 ML/MIN
[2019-07-21 08:33] LABS: TOTAL CELLS COUNTED 100
[2019-07-21 08:34] LABS: LARGE PLATELETS FEW; PLATELET ESTIMATE DECREASED; TOXIC GRANULATION 1+
[2019-07-21] MEDS: LevETIRAcetam 500 MG in NORMAL SALINE 100ml IV.SOLN IV SCH ×2 (08:43→21:30)
[2019-07-21] MEDS: LORazepam 0.5 MG tablet OGT SCH (08:44)
[2019-07-21] MEDS: pantoprazole 40 MG vial IV SCH (08:44)
[2019-07-21] MEDS: levetiracetam-NS 1000mg/100ml 100 ML IV SCH ×2 (08:44→21:29)
[2019-07-21] MEDS: vancomycin inj. 750 MG in normal saline 250ml IV soln 250 ML IV SCH ×2 (08:44→19:36)
[2019-07-21] MEDS: MULTIVIT-MIN/FERROUS GLUCONATE 9 MG/15 ML LIQUID OGT SCH (08:45)
[2019-07-21] MEDS: oxcarbazepine 150mg tablet OGT SCH ×2 (08:45→20:02)
[2019-07-21] MEDS: levoTHYROXINE 112mcg tablet OGT SCH (08:45)
[2019-07-21] MEDS: lactobacillus rhamnosus 10,000 MMU CELLS/CAPSULE PO SCH ×2 (08:45→20:02)
[2019-07-21] MEDS: busPIRone 5mg tablet OGT SCH ×2 (08:45→20:02)
[2019-07-21] MEDS: PARoxetine 10mg tablet OGT SCH (08:45)
[2019-07-21] MEDS: POTASSIUM BICARB 20meq eff tab 20 MEQ TABLET.EFF OGT PRN ×2 (08:45→12:12)
[2019-07-21] MEDS: acetaminophen 325mg tablet OGT PRN (12:13)
[2019-07-21] MEDS ORDERED: methylPREDNISolone sod succ/PF 40mg inj. IV ONE (12:35)
--- NOTE | 2019-07-21 13:00 | NUR ---
PATIENT MORE AWARE WITH FATHER AT THE BEDSIDE. OPENS EYES AND LOOKS AROUND
[2019-07-21] MEDS: levoFLOXACIN-Levaquin 500mg/D5 100 ML IV SCH (14:19)
[2019-07-21] MEDS: insulin regular, human vial - multi-dose SQ SCH ×2 (14:21→21:37)
--- NOTE | 2019-07-21 15:24 | NUR ---
discussed holding off on CT with dr blackwell because patient is starting to wake up more and is acting more aware of her surroundings. CT is cancelled as of now and I worked with the patient on sitting he up and dangling on the side of the bed which she tolerated ok. I also put in a PT eval and treat but, they cant see her until tomorrow. Patient was awake and alert upon dangling and was looking around the room and also pushing my hands away when i was doing oral care which is more like her normal self. I brushed patients hair, performed oral hygiene and changed linens and she is now lying back down sleeping.
[2019-07-21] MEDS ORDERED: VANCOMYCIN LEVEL IV ONE (18:30)
[2019-07-21] MEDS: insulin glargine (Lantus) pen - multi-dose SQ SCH (21:35)
--- NOTE | 2019-07-21 21:40 | NUR ---
RN BATHING PATIENT NOTED CORE OLY PULLED OUT BY PATIENT. CORE OLY REPLACED,AugustN NOTIFIED,ALVIN ORDERD WAITING FOR ORDER TO RESUME TUBE FEEDING.
[2019-07-22] VITALS (24 sets, daily range): BP systolic 59–123; BP diastolic 44–70
--- NOTE | 2019-07-22 02:05 | NUR ---
RECEIVED ORDER TO RESUME TUBEFEEDING AT GOAL RATE OF 55 ML/HR
[2019-07-22] MEDS: insulin regular, human vial - multi-dose SQ SCH ×2 (03:09→22:18)
[2019-07-22] MEDS: acetaminophen 325mg tablet OGT PRN ×3 (03:14→20:15)
[2019-07-22] MEDS: LORazepam 2 mg/ml vial IV PRN (04:45)
--- NOTE | 2019-07-22 05:00 | NUR ---
PATIENT PULLED OUT CORE OLY, AugustN NOTIFIED, CORE OLY REPLACED AWAITING KUB AND ORDER TO RESUME TUBE FEEDING
[2019-07-22 05:31] LABS: BASOPHILS % (AUTO) 0.1 % (0-1); EOSINOPHILS % (AUTO) 0.2 % (0-6); HEMATOCRIT 28.7 % (35.0-45.0); HEMOGLOBIN 9.8 g/dl (12.0-16.0); MEAN CORPUSCULAR HEMOGLOBIN 32.1 PG (27.0-31.0); MEAN CORPUSCULAR HGB CONC 34.1 g/dL (33.0-36.5); MEAN CORPUSCULAR VOLUME 94.2 FL (78-98); MEAN PLATELET VOLUME 12.6 FL (7.4-10.4); MONOCYTES # (AUTO) 1.2 X10'3 (0-0.9); MONOCYTES % (AUTO) 15.1 % (2-12); NEUTROPHILS # (AUTO) 5.9 X10'3 (1.8-7.7); NEUTROPHILS % (AUTO) 72.6 % (42-75); PLATELET COUNT 60 X10'3 (140-440); RED BLOOD COUNT 3.04 X10'6 (4.20-5.60); RED CELL DISTRIBUTION WIDTH 14.5 % (11.5-14.5); WHITE BLOOD COUNT 8.1 X10'3 (4.5-11.0)
[2019-07-22 05:38] LABS: ALBUMIN 2.3 G/DL (3.4-5.0); ANION GAP 9 (8-16); BLOOD UREA NITROGEN 10 MG/DL (7-18); BUN/CREATININE RATIO 17.5 (6.6-38.0); CALCIUM 7.5 MG/DL (8.5-10.1); CHLORIDE 110 MMOL/L (99-107); CREATININE 0.57 MG/DL (0.40-0.90); GLUCOSE 132 MG/DL (70-104); POTASSIUM 3.4 MMOL/L (3.5-5.1); SODIUM 146 MMOL/L (135-145); TOTAL CARBON DIOXIDE 27.4 MMOL/L (24-32); eGFR > 90 ML/MIN
--- NOTE | 2019-07-22 06:30 | NUR ---
Patient in room ICU 2040. I have received report from Yaya CISSE and had the opportunity to ask questions and assume patient care.
[2019-07-22 07:03] LABS: LARGE PLATELETS FEW; PLATELET ESTIMATE DECREASED; TOTAL CELLS COUNTED 100; TOXIC GRANULATION 1+
[2019-07-22] MEDS: phenobarbital 30mg tablet OGT SCH ×2 (08:00→22:33)
[2019-07-22] MEDS: heparin, porcine 5000 units/ml vial SQ SCH ×3 (08:00→22:33)
[2019-07-22] MEDS: K and/or MAG REPLACEMENT MC SCH (08:00)
[2019-07-22] MEDS: levoFLOXACIN-Levaquin 500mg/D5 100 ML IV SCH (09:15)
[2019-07-22] MEDS: levetiracetam-NS 1000mg/100ml 100 ML IV SCH ×2 (09:15→22:25)
[2019-07-22] MEDS: LevETIRAcetam 500 MG in NORMAL SALINE 100ml IV.SOLN IV SCH ×2 (09:15→22:32)
[2019-07-22] MEDS: pantoprazole 40 MG vial IV SCH (09:17)
[2019-07-22] MEDS: vancomycin/NS 1 GM ADD-VANTAGE 250 ML IV SCH ×2 (10:37→20:25)
--- NOTE | 2019-07-22 11:36 | NUR ---
per Dr. Anaya it is okay to restart tube feeding with corpak in the stomach. resumed tube feeding at 1130 @ rate of 55 cc/hr. will continue to monitor.
--- NOTE | 2019-07-22 11:39 | NUR ---
per Dr Anaya, HOB at 45 degrees
[2019-07-22] MEDS: docusate sodium 100mg/10ml UD cup OGT SCH ×2 (11:53→20:00)
[2019-07-22] MEDS: MULTIVIT-MIN/FERROUS GLUCONATE 9 MG/15 ML LIQUID OGT SCH (11:53)
[2019-07-22] MEDS: oxcarbazepine 150mg tablet OGT SCH ×2 (11:53→22:32)
[2019-07-22] MEDS: levoTHYROXINE 112mcg tablet OGT SCH (11:54)
[2019-07-22] MEDS: PARoxetine 10mg tablet OGT SCH (11:54)
[2019-07-22] MEDS: LORazepam 0.5 MG tablet OGT SCH (11:54)
[2019-07-22] MEDS: busPIRone 5mg tablet OGT SCH ×2 (11:54→22:32)
[2019-07-22] MEDS: lactobacillus rhamnosus 10,000 MMU CELLS/CAPSULE PO SCH ×2 (11:54→22:32)
--- NOTE | 2019-07-22 14:14 | NUR ---
Reassessment: Patient pulled corpak out this morning, replaced and pending verification. Recommend to resume tube feeding and water flush after placement. Arpan Mejia MD aware and will continue water flush. Will follow. Rec: 1. Once corpak verified; NGTF using Jevity 1.2 at 55ml/hr goal; to provide 1320ml fluid, 1069ml free water, 1584kcals, and 73g protein. 2. water flush 200ml q 4 hours 3. PALB Q /; daily wts 4. IF NPO and/or prolonged low PO continues; would likely benefit from PEG in order to adequately meet repletion nutrition needs and long-term med/nutrition delivery needs Addendum: 07/22/19 at [address] Amended: Links added.
[2019-07-22] MEDS: POTASSIUM BICARB 20meq eff tab 20 MEQ TABLET.EFF OGT PRN (15:04)
[2019-07-22] MEDS: dextrose 5%-1/2 normal saline 1,000 ML IV SCH (17:28)
--- NOTE | 2019-07-22 18:41 | NUR ---
Problems reprioritized. Patient report given, questions answered & plan of care reviewed with Yaya CISSE.
[2019-07-22] MEDS: insulin glargine (Lantus) pen - multi-dose SQ SCH (22:24)
[2019-07-23] VITALS (23 sets, daily range): BP systolic 83–124; BP diastolic 40–75
[2019-07-23] MEDS: insulin regular, human vial - multi-dose SQ SCH (02:46)
--- NOTE | 2019-07-23 06:20 | NUR ---
Problems reprioritized. Patient report given, questions answered & plan of care reviewed with Jeancarlos CISSE.
--- NOTE | 2019-07-23 06:34 | NUR ---
Patient in room ICU 2040. I have received report from Yaya CISSE and had the opportunity to ask questions and assume patient care.
[2019-07-23 06:56] LABS: ALBUMIN 1.9 G/DL (3.4-5.0); ANION GAP 5 (8-16); BLOOD UREA NITROGEN 8 MG/DL (7-18); CALCIUM 7.4 MG/DL (8.5-10.1); CHLORIDE 109 MMOL/L (99-107); CREATININE 0.42 MG/DL (0.40-0.90); GLUCOSE 81 MG/DL (70-104); MAGNESIUM 1.8 MG/DL (1.5-2.4); POTASSIUM 3.6 MMOL/L (3.5-5.1); SODIUM 144 MMOL/L (135-145); TOTAL CARBON DIOXIDE 30.4 MMOL/L (24-32); eGFR > 90 ML/MIN
[2019-07-23] MEDS: heparin, porcine 5000 units/ml vial SQ SCH ×2 (07:25→20:00)
[2019-07-23] MEDS: LevETIRAcetam 500 MG in NORMAL SALINE 100ml IV.SOLN IV SCH ×2 (07:45→20:47)
[2019-07-23] MEDS: vancomycin/NS 1 GM ADD-VANTAGE 250 ML IV SCH (07:45)
[2019-07-23] MEDS: levetiracetam-NS 1000mg/100ml 100 ML IV SCH ×2 (07:45→20:47)
[2019-07-23] MEDS: LORazepam 0.5 MG tablet OGT SCH (07:46)
[2019-07-23] MEDS: MULTIVIT-MIN/FERROUS GLUCONATE 9 MG/15 ML LIQUID OGT SCH (07:46)
[2019-07-23] MEDS: lactobacillus rhamnosus 10,000 MMU CELLS/CAPSULE PO SCH ×2 (07:46→20:49)
[2019-07-23] MEDS: pantoprazole 40 MG vial IV SCH (07:46)
[2019-07-23] MEDS: oxcarbazepine 150mg tablet OGT SCH ×2 (07:46→20:50)
[2019-07-23] MEDS: PARoxetine 10mg tablet OGT SCH (07:46)
[2019-07-23] MEDS: busPIRone 5mg tablet OGT SCH ×2 (07:46→20:49)
[2019-07-23] MEDS: levoTHYROXINE 112mcg tablet OGT SCH (07:46)
[2019-07-23] MEDS: docusate sodium 100mg/10ml UD cup OGT SCH ×2 (07:47→21:50)
[2019-07-23] MEDS: acetaminophen 325mg tablet OGT PRN ×2 (07:49→15:57)
[2019-07-23] MEDS: K and/or MAG REPLACEMENT MC SCH (08:00)
[2019-07-23] MEDS: phenobarbital 30mg tablet OGT SCH ×2 (08:45→20:50)
[2019-07-23] MEDS ORDERED: furosemide 20 MG/2 ML vial IV ONE (08:45)
[2019-07-23] MEDS: dextrose 5%-1/2 normal saline 1,000 ML IV SCH (08:45)
[2019-07-23] MEDS ORDERED: phenobarbital 30mg tablet PO ONE (09:10)
[2019-07-23] MEDS: oseltamivir phos 75mg capsule PO SCH ×2 (10:06→20:50)
[2019-07-23] MEDS: azithromycin/NS 500mg/250ml 250 ML IV SCH (10:18)
[2019-07-23] MEDS ORDERED: levoFLOXACIN 500mg tablet OGT SCH (11:00)
[2019-07-23] MEDS: cefepime 2g/NS 100ml ADVANTAGE 100 ML IV SCH ×2 (11:54→21:36)
--- NOTE | 2019-07-23 12:15 | NUR ---
Reassessment: Pt tolerating TF at goal. No BM yet this admit OK to start MoM and lactulose as needed per MD today. Pending r/o flu results. Nosocomial sepsis and PNA per MD. Will continue to monitor. Rec: 1. Once corpak verified; NGTF using Jevity 1.2 at 55ml/hr goal; to provide 1320ml fluid, 1069ml free water, 1584kcals, and 73g protein. 2. water flush 200ml q 4 hours 3. PALB Q /; daily wts 4. IF NPO and/or prolonged low PO continues; would likely benefit from PEG in order to adequately meet repletion nutrition needs and long-term med/nutrition delivery needs Addendum: 07/23/19 at 1215 by Jose De Jesus Dumont RD Amended: Links added.
--- NOTE | 2019-07-23 13:29 | NUR ---
provided oral care with clorhexadine oral adebayo'n. pt tolerated well. will continue to monitor
--- NOTE | 2019-07-23 15:57 | NUR ---
pt had temp of 39.3. gave pt prn tylenol for fever and packed pt with ice. will continue to monitor.
[2019-07-23] MEDS ORDERED: magnesium hydroxide 30ml (MOM) UD suspension PO PRN (17:20)
[2019-07-23] MEDS ORDERED: VANCOMYCIN LEVEL IV ONE (18:30)
[2019-07-23] MEDS: insulin glargine (Lantus) pen - multi-dose SQ SCH (21:00)
[2019-07-23] MEDS ORDERED: acetaminophen 325mg/10.15ml oral unit dose solution OGT PRN (21:45)
[2019-07-23] MEDS: acetaminophen 325mg/10.15ml oral unit dose solution OGT PRN (21:50)
[2019-07-24] VITALS (21 sets, daily range): BP systolic 90–124; BP diastolic 45–74
[2019-07-24] MEDS: dextrose 5%-1/2 normal saline 1,000 ML IV SCH ×2 (02:00→15:02)
[2019-07-24] MEDS: acetaminophen 325mg/10.15ml oral unit dose solution OGT PRN ×3 (04:50→18:43)
[2019-07-24 05:32] LABS: BASOPHILS % (AUTO) 0.2 % (0-1); EOSINOPHILS # (AUTO) 0.1 X10'3 (0-0.9); HEMATOCRIT 30.3 % (35.0-45.0); HEMOGLOBIN 10.4 g/dl (12.0-16.0); LYMPHOCYTES # (AUTO) 1.2 X10'3 (1.1-4.8); MEAN CORPUSCULAR HEMOGLOBIN 32.2 PG (27.0-31.0); MEAN CORPUSCULAR HGB CONC 34.2 g/dL (33.0-36.5); MEAN CORPUSCULAR VOLUME 94.3 FL (78-98); MEAN PLATELET VOLUME 11.2 FL (7.4-10.4); MONOCYTES # (AUTO) 1.2 X10'3 (0-0.9); MONOCYTES % (AUTO) 10.9 % (2-12); NEUTROPHILS # (AUTO) 8.2 X10'3 (1.8-7.7); NEUTROPHILS % (AUTO) 76.9 % (42-75); PLATELET COUNT 148 X10'3 (140-440); RED BLOOD COUNT 3.22 X10'6 (4.20-5.60); RED CELL DISTRIBUTION WIDTH 14.3 % (11.5-14.5); WHITE BLOOD COUNT 10.6 X10'3 (4.5-11.0)
[2019-07-24 05:46] LABS: ALBUMIN 2.1 G/DL (3.4-5.0); ANION GAP 5 (8-16); BLOOD UREA NITROGEN 10 MG/DL (7-18); BUN/CREATININE RATIO 23.8 (6.6-38.0); CALCIUM 7.8 MG/DL (8.5-10.1); CHLORIDE 108 MMOL/L (99-107); CREATININE 0.42 MG/DL (0.40-0.90); GLUCOSE 126 MG/DL (70-104); MAGNESIUM 2.1 MG/DL (1.5-2.4); PHENYTOIN (DILANTIN) 0.5 UG/ML (10.0-20.0); POTASSIUM 3.9 MMOL/L (3.5-5.1); SODIUM 144 MMOL/L (135-145); TOTAL CARBON DIOXIDE 31.5 MMOL/L (24-32); eGFR > 90 ML/MIN
--- NOTE | 2019-07-24 06:26 | NUR ---
Patient in room ICU 2040. I have received report from Jarocho CISSE and had the opportunity to ask questions and assume patient care.
[2019-07-24] MEDS: K and/or MAG REPLACEMENT MC SCH (08:00)
[2019-07-24] MEDS: LevETIRAcetam 500 MG in NORMAL SALINE 100ml IV.SOLN IV SCH ×2 (09:17→21:06)
[2019-07-24] MEDS: levetiracetam-NS 1000mg/100ml 100 ML IV SCH ×2 (09:21→20:40)
[2019-07-24] MEDS: cefepime 2g/NS 100ml ADVANTAGE 100 ML IV SCH ×2 (09:21→20:48)
[2019-07-24] MEDS: azithromycin/NS 500mg/250ml 250 ML IV SCH (09:22)
[2019-07-24] MEDS: phenobarbital 30mg tablet OGT SCH ×2 (09:22→20:46)
[2019-07-24] MEDS: LORazepam 0.5 MG tablet OGT SCH (09:22)
[2019-07-24] MEDS: MULTIVIT-MIN/FERROUS GLUCONATE 9 MG/15 ML LIQUID OGT SCH (09:22)
[2019-07-24] MEDS: PARoxetine 10mg tablet OGT SCH (09:22)
[2019-07-24] MEDS: oxcarbazepine 150mg tablet OGT SCH ×2 (09:23→20:45)
[2019-07-24] MEDS: pantoprazole 40 MG vial IV SCH (09:23)
[2019-07-24] MEDS: lactobacillus rhamnosus 10,000 MMU CELLS/CAPSULE PO SCH ×2 (09:23→20:45)
[2019-07-24] MEDS: busPIRone 5mg tablet OGT SCH ×2 (09:23→20:45)
[2019-07-24] MEDS: docusate sodium 100mg/10ml UD cup OGT SCH ×2 (09:23→20:46)
[2019-07-24] MEDS: levoTHYROXINE 112mcg tablet OGT SCH (09:23)
--- NOTE | 2019-07-24 10:59 | NUR ---
pt report given to Ethel CISSE; all questions answered.
--- NOTE | 2019-07-24 11:00 | NUR ---
Patient in room ICU 2040. I have received report from vaqzuez and had the opportunity to ask questions and assume patient care.
[2019-07-24] MEDS: heparin, porcine 5000 units/ml vial SQ SCH ×2 (11:55→20:44)
[2019-07-24] MEDS ORDERED: iohexol 300mg/ml 100ml inj. ONE (14:04)
--- NOTE | 2019-07-24 18:22 | NUR ---
Problems reprioritized. Patient report given, questions answered & plan of care reviewed with
--- NOTE | 2019-07-24 18:29 | NUR ---
Patient in room ICU 2040. I have received report from TANNA Davenport and had the opportunity to ask questions and assume patient care.
[2019-07-24] MEDS: insulin glargine (Lantus) pen - multi-dose SQ SCH (21:00)
[2019-07-25] VITALS (24 sets, daily range): BP systolic 83–117; BP diastolic 42–70
[2019-07-25] MEDS: acetaminophen 325mg/10.15ml oral unit dose solution OGT PRN ×4 (01:56→22:50)
[2019-07-25 05:44] LABS: ALBUMIN 1.8 G/DL (3.4-5.0); ANION GAP 6 (8-16); BLOOD UREA NITROGEN 8 MG/DL (7-18); CALCIUM 7.2 MG/DL (8.5-10.1); CHLORIDE 107 MMOL/L (99-107); CREATININE 0.47 MG/DL (0.40-0.90); GLUCOSE 122 MG/DL (70-104); POTASSIUM 3.7 MMOL/L (3.5-5.1); SODIUM 142 MMOL/L (135-145); eGFR > 90 ML/MIN
--- NOTE | 2019-07-25 06:30 | NUR ---
Problems reprioritized. Patient report given, questions answered & plan of care reviewed with TANNA Hernandez.
[2019-07-25] MEDS: dextrose 5%-1/2 normal saline 1,000 ML IV SCH (07:04)
[2019-07-25] MEDS: LevETIRAcetam 500 MG in NORMAL SALINE 100ml IV.SOLN IV SCH ×2 (07:04→19:29)
[2019-07-25] MEDS: azithromycin/NS 500mg/250ml 250 ML IV SCH (07:04)
[2019-07-25] MEDS: pantoprazole 40 MG vial IV SCH (07:05)
[2019-07-25] MEDS: levetiracetam-NS 1000mg/100ml 100 ML IV SCH ×2 (07:05→19:29)
[2019-07-25] MEDS: cefepime 2g/NS 100ml ADVANTAGE 100 ML IV SCH ×2 (07:05→20:19)
[2019-07-25] MEDS: docusate sodium 100mg/10ml UD cup OGT SCH ×2 (07:05→19:29)
[2019-07-25] MEDS: oxcarbazepine 150mg tablet OGT SCH ×2 (07:07→19:30)
[2019-07-25] MEDS: MULTIVIT-MIN/FERROUS GLUCONATE 9 MG/15 ML LIQUID OGT SCH (07:07)
[2019-07-25] MEDS: lactobacillus rhamnosus 10,000 MMU CELLS/CAPSULE PO SCH ×2 (07:07→19:29)
[2019-07-25] MEDS: busPIRone 5mg tablet OGT SCH ×2 (07:07→19:29)
[2019-07-25] MEDS: heparin, porcine 5000 units/ml vial SQ SCH ×2 (07:07→19:30)
[2019-07-25] MEDS: phenobarbital 30mg tablet OGT SCH ×2 (07:08→20:48)
[2019-07-25] MEDS: LORazepam 0.5 MG tablet OGT SCH (07:08)
[2019-07-25] MEDS: PARoxetine 10mg tablet OGT SCH (07:08)
[2019-07-25] MEDS: levoTHYROXINE 112mcg tablet OGT SCH (07:08)
[2019-07-25] MEDS: K and/or MAG REPLACEMENT MC SCH (07:09)
--- NOTE | 2019-07-25 09:55 | NUR ---
Bedside rounds with MD Anaya. made aware of current patient condition, vitals, including BP with MAP maintaining 60.
--- NOTE | 2019-07-25 18:24 | NUR ---
Patient in room ICU 2040. I have received report from David CISSE and had the opportunity to ask questions and assume patient care.
[2019-07-25] MEDS: insulin glargine (Lantus) pen - multi-dose SQ SCH (20:19)
[2019-07-26] VITALS (8 sets, daily range): BP systolic 101–125; BP diastolic 51–66
--- NOTE | 2019-07-26 02:39 | NUR ---
Problems reprioritized. Patient report given, questions answered & plan of care reviewed with Shira CISSE.
--- NOTE | 2019-07-26 03:13 | NUR ---
RC'D VERBAL REPORT FROM JULISA RN IN ICU AND ASSUMED CARE OF PATIENT UPON HER TRANSFER TO [facility]. TRANSFERRED PATIENT INTO ORTHO BED, 2 RN SKIN CHECK COMPLETED. OLD PRESSURE AREA NOTED IN SULCUS, NO LONGER OPEN, OPTIFOAM PLACED AND PATIENT POSITIONED WITH A RIGHT TILT USING PILLOWS, HEELS ELEVATED AND PILLOW BETWEEN KNEES TO PREVENT PRESSURE AREAS THERE. SKIN CARE GIVEN FOR LARGE SOFT BM. RESTRAINTS CONT'D D/T PATIENT NOT ABLE TO FOLLOW DIRECTIONS AND PULLS AT TUBES AND HAS FEEDING VIA CORPAK RUNNING NOW. AT GOAL RATE OF 55. HOB UP FOR ASPIRATION PRECAUTIONS. AGGITATION NOTED WHILE ASSMT BEING DONE BUT CALMING NOW THAT WE ARE NO LONGER STIMULATING HER. RAILS UP X 4, SEIZURE PADS IN PLACE, BED LOCKED AND IN LOW POSITION. PATIENT IN VIEW OF NURSES STATION FOR CLOSE MONITORING AT ALL TIMES.
[2019-07-26] MEDS: acetaminophen 325mg/10.15ml oral unit dose solution OGT PRN (05:48)
[2019-07-26 06:28] LABS: ALBUMIN 1.8 G/DL (3.4-5.0); ANION GAP 6 (8-16); BLOOD UREA NITROGEN 7 MG/DL (7-18); BUN/CREATININE RATIO 14.9 (6.6-38.0); CALCIUM 7.6 MG/DL (8.5-10.1); CHLORIDE 107 MMOL/L (99-107); CREATININE 0.47 MG/DL (0.40-0.90); GLUCOSE 116 MG/DL (70-104); POTASSIUM 3.8 MMOL/L (3.5-5.1); SODIUM 142 MMOL/L (135-145); TOTAL CARBON DIOXIDE 29.2 MMOL/L (24-32); eGFR > 90 ML/MIN
--- NOTE | 2019-07-26 06:44 | NUR ---
Problems reprioritized. Patient report given, questions answered & plan of care reviewed with MERE CISSE. AM VITALS, PATIENT FEBRILE AT 101.2 TYLENOL GIVEN CORPAK ORDERED AND FOLLOWED WITH 50ML WATER..
[2019-07-26] MEDS: LORazepam 0.5 MG tablet OGT SCH (07:38)
[2019-07-26] MEDS: busPIRone 5mg tablet OGT SCH ×2 (07:38→20:27)
[2019-07-26] MEDS: lactobacillus rhamnosus 10,000 MMU CELLS/CAPSULE PO SCH ×2 (07:38→20:27)
[2019-07-26] MEDS: levoTHYROXINE 112mcg tablet OGT SCH (07:38)
[2019-07-26] MEDS: heparin, porcine 5000 units/ml vial SQ SCH ×2 (07:38→20:27)
[2019-07-26] MEDS: phenobarbital 30mg tablet OGT SCH ×2 (07:38→20:27)
[2019-07-26] MEDS: PARoxetine 10mg tablet OGT SCH (07:38)
[2019-07-26] MEDS: oxcarbazepine 150mg tablet OGT SCH ×2 (07:38→20:27)
[2019-07-26] MEDS: MULTIVIT-MIN/FERROUS GLUCONATE 9 MG/15 ML LIQUID OGT SCH (07:39)
[2019-07-26] MEDS: K and/or MAG REPLACEMENT MC SCH (07:39)
[2019-07-26] MEDS: docusate sodium 100mg/10ml UD cup OGT SCH ×2 (07:39→20:00)
[2019-07-26] MEDS: pantoprazole 40 MG vial IV SCH (07:39)
[2019-07-26] MEDS: azithromycin/NS 500mg/250ml 250 ML IV SCH (08:20)
[2019-07-26] MEDS: levetiracetam-NS 1000mg/100ml 100 ML IV SCH ×2 (09:39→20:14)
[2019-07-26] MEDS: cefepime 2g/NS 100ml ADVANTAGE 100 ML IV SCH ×2 (09:39→21:07)
[2019-07-26] MEDS: LevETIRAcetam 500 MG in NORMAL SALINE 100ml IV.SOLN IV SCH ×2 (09:39→20:51)
[2019-07-26 14:03] LABS: PREALBUMIN 11.2 MG/DL (19-36)
--- NOTE | 2019-07-26 14:19 | NUR ---
Reassessment: Pt tolerating TF at goal w/ Na WNL receiving water flushes. LBM 07/24. New PALB pending to help further determine nutrition status. Will continue to monitor. Rec: 1. NGTF via corpak using Jevity 1.2 at 55ml/hr goal; to provide 1320ml fluid, 1069ml free water, 1584kcals, and73g protein. 2. water flush 200ml q 4 hours 3. PALB Q /; daily wts 4. would likely benefit from PEG in order to adequately meet repletion nutrition needs and long-term med/nutrition delivery needs Addendum: 07/26/19 at 1419 by Jose De Jesus Dumont RD Amended: Links added.
--- NOTE | 2019-07-26 18:06 | NUR ---
Patient in room ORTHO 4020. I have received report from Brandi CISSE and had the opportunity to ask questions and assume patient care.
[2019-07-26] MEDS: insulin glargine (Lantus) pen - multi-dose SQ SCH (21:00)
[2019-07-27] MEDS: acetaminophen 325mg/10.15ml oral unit dose solution OGT PRN ×2 (00:28→17:11)
--- NOTE | 2019-07-27 06:15 | NUR ---
Problems reprioritized. Patient report given, questions answered & plan of care reviewed with Brandi CISSE.
[2019-07-27 06:52] VITALS: BP 115/49
[2019-07-27] MEDS: MULTIVIT-MIN/FERROUS GLUCONATE 9 MG/15 ML LIQUID OGT SCH (07:21)
[2019-07-27] MEDS: heparin, porcine 5000 units/ml vial SQ SCH ×2 (07:21→20:41)
[2019-07-27] MEDS: lactobacillus rhamnosus 10,000 MMU CELLS/CAPSULE PO SCH ×2 (07:21→20:40)
[2019-07-27] MEDS: levoTHYROXINE 112mcg tablet OGT SCH (07:21)
[2019-07-27] MEDS: pantoprazole 40 MG vial IV SCH (07:21)
[2019-07-27] MEDS: busPIRone 5mg tablet OGT SCH ×2 (07:22→20:41)
[2019-07-27] MEDS: LORazepam 0.5 MG tablet OGT SCH (07:22)
[2019-07-27] MEDS: phenobarbital 30mg tablet OGT SCH ×2 (07:22→20:40)
[2019-07-27] MEDS: PARoxetine 10mg tablet OGT SCH (07:22)
[2019-07-27] MEDS: oxcarbazepine 150mg tablet OGT SCH ×2 (07:22→20:40)
[2019-07-27] MEDS: K and/or MAG REPLACEMENT MC SCH (07:23)
[2019-07-27] MEDS: cefepime 2g/NS 100ml ADVANTAGE 100 ML IV SCH ×2 (07:23→21:28)
[2019-07-27] MEDS: docusate sodium 100mg/10ml UD cup OGT SCH ×2 (07:23→20:40)
[2019-07-27] MEDS: azithromycin/NS 500mg/250ml 250 ML IV SCH (07:23)
[2019-07-27] MEDS: levetiracetam-NS 1000mg/100ml 100 ML IV SCH ×2 (07:24→20:39)
[2019-07-27] MEDS: LevETIRAcetam 500 MG in NORMAL SALINE 100ml IV.SOLN IV SCH ×2 (07:24→21:11)
[2019-07-27 09:15] LABS: ALBUMIN 2.1 G/DL (3.4-5.0); ANION GAP 6 (8-16); BLOOD UREA NITROGEN 7 MG/DL (7-18); BUN/CREATININE RATIO 15.9 (6.6-38.0); CALCIUM 8.2 MG/DL (8.5-10.1); CHLORIDE 107 MMOL/L (99-107); CREATININE 0.44 MG/DL (0.40-0.90); GLUCOSE 98 MG/DL (70-104); POTASSIUM 4.3 MMOL/L (3.5-5.1); SODIUM 143 MMOL/L (135-145); TOTAL CARBON DIOXIDE 29.6 MMOL/L (24-32); eGFR > 90 ML/MIN
[2019-07-27 10:49] VITALS: BP_SYST 127; BP_SYST 97; BP_DIAS 49; BP_DIAS 77
[2019-07-27 18:00] VITALS: BP 99/61
--- NOTE | 2019-07-27 18:10 | NUR ---
Patient in room ORTHO 4020. I have received report from Brandi CISSE and had the opportunity to ask questions and assume patient care.
[2019-07-27] MEDS: insulin glargine (Lantus) pen - multi-dose SQ SCH (21:00)
[2019-07-27 22:00] VITALS: BP 100/72
[2019-07-28 06:00] VITALS: BP 118/63
--- NOTE | 2019-07-28 06:45 | NUR ---
Problems reprioritized. Patient report given, questions answered & plan of care reviewed with Cinthia CISSE.
--- NOTE | 2019-07-28 07:13 | NUR ---
Patient in room ORTHO 4020. I have received report from Celeste Tirado RN and had the opportunity to ask questions and assume patient care.
[2019-07-28 07:40] LABS: ANION GAP 8 (8-16); BLOOD UREA NITROGEN 10 MG/DL (7-18); CALCIUM 8.2 MG/DL (8.5-10.1); CHLORIDE 107 MMOL/L (99-107); GLUCOSE 105 MG/DL (70-104); POTASSIUM 4.5 MMOL/L (3.5-5.1); SODIUM 141 MMOL/L (135-145); eGFR > 90 ML/MIN
[2019-07-28] MEDS: levetiracetam-NS 1000mg/100ml 100 ML IV SCH ×2 (08:00→19:52)
[2019-07-28] MEDS: oxcarbazepine 150mg tablet OGT SCH ×2 (08:40→21:26)
[2019-07-28] MEDS: levoTHYROXINE 112mcg tablet OGT SCH (08:40)
[2019-07-28] MEDS: LORazepam 0.5 MG tablet OGT SCH (08:41)
[2019-07-28] MEDS: lactobacillus rhamnosus 10,000 MMU CELLS/CAPSULE PO SCH ×2 (08:41→21:25)
[2019-07-28] MEDS: phenobarbital 30mg tablet OGT SCH ×2 (08:41→21:26)
[2019-07-28] MEDS: PARoxetine 10mg tablet OGT SCH (08:41)
[2019-07-28] MEDS: busPIRone 5mg tablet OGT SCH ×2 (08:41→21:26)
[2019-07-28] MEDS: pantoprazole 40 MG vial IV SCH (08:43)
[2019-07-28] MEDS: heparin, porcine 5000 units/ml vial SQ SCH ×2 (08:43→21:32)
[2019-07-28] MEDS: docusate sodium 100mg/10ml UD cup OGT SCH ×2 (08:44→21:25)
[2019-07-28] MEDS: MULTIVIT-MIN/FERROUS GLUCONATE 9 MG/15 ML LIQUID OGT SCH (08:45)
[2019-07-28] MEDS: cefepime 2g/NS 100ml ADVANTAGE 100 ML IV SCH ×2 (08:47→21:26)
[2019-07-28] MEDS: azithromycin/NS 500mg/250ml 250 ML IV SCH (08:47)
[2019-07-28 10:00] VITALS: BP 92/67
--- NOTE | 2019-07-28 12:00 | NUR ---
IV Flushes but Question Puffiness post infusion Keppra infusion. Reaching out to IV PICC team for difficult IV start.
[2019-07-28 14:00] VITALS: BP 103/53
--- NOTE | 2019-07-28 17:47 | NUR ---
RN requested Ultrasound guided PIV placement. Patient was out of bed in chair when PICC RN arrived to place PIV. Pt's RN asked to place Patient back into bed and page PICC when ready.
[2019-07-28 18:00] VITALS: BP 102/44
--- NOTE | 2019-07-28 18:25 | NUR ---
Patient in room ORTHO 4020. I have received report from Cinthia CISSE and had the opportunity to ask questions and assume patient care.
[2019-07-28] MEDS: metroNIDAZOLE-Flagyl 500mg/NS 100 ML IV SCH (18:46)
[2019-07-28] MEDS: LevETIRAcetam 500 MG in NORMAL SALINE 100ml IV.SOLN IV SCH (20:12)
[2019-07-28] MEDS: insulin glargine (Lantus) pen - multi-dose SQ SCH (21:00)
[2019-07-28] MEDS: K and/or MAG REPLACEMENT MC SCH (21:31)
[2019-07-28 22:00] VITALS: BP 88/47
[2019-07-29] MEDS: metroNIDAZOLE-Flagyl 500mg/NS 100 ML IV SCH (00:05)
[2019-07-29 06:00] VITALS: BP 105/57
[2019-07-29 06:28] LABS: ALBUMIN 2.2 G/DL (3.4-5.0); ANION GAP 5 (8-16); BLOOD UREA NITROGEN 9 MG/DL (7-18); BUN/CREATININE RATIO 19.6 (6.6-38.0); CALCIUM 8.2 MG/DL (8.5-10.1); CHLORIDE 106 MMOL/L (99-107); CREATININE 0.46 MG/DL (0.40-0.90); GLUCOSE 106 MG/DL (70-104); POTASSIUM 4.3 MMOL/L (3.5-5.1); PREALBUMIN 15.7 MG/DL (19-36); SODIUM 142 MMOL/L (135-145); TOTAL CARBON DIOXIDE 31.3 MMOL/L (24-32); eGFR > 90 ML/MIN
--- NOTE | 2019-07-29 06:40 | NUR ---
Problems reprioritized. Patient report given, questions answered & plan of care reviewed with Ivanna CISSE.
[2019-07-29] MEDS: K and/or MAG REPLACEMENT MC SCH (08:00)
[2019-07-29] MEDS: levetiracetam-NS 1000mg/100ml 100 ML IV SCH (09:41)
[2019-07-29 10:00] VITALS: BP 108/62
[2019-07-29] MEDS: pantoprazole 40 MG vial IV SCH (10:50)
[2019-07-29] MEDS: levoFLOXACIN-Levaquin 500mg/D5 100 ML IV SCH (10:53)
[2019-07-29] MEDS: MULTIVIT-MIN/FERROUS GLUCONATE 9 MG/15 ML LIQUID OGT SCH (10:55)
[2019-07-29] MEDS: levoTHYROXINE 112mcg tablet OGT SCH (10:56)
[2019-07-29] MEDS: docusate sodium 100mg/10ml UD cup OGT SCH ×2 (10:56→20:20)
[2019-07-29] MEDS: lactobacillus rhamnosus 10,000 MMU CELLS/CAPSULE PO SCH ×2 (10:56→20:20)
[2019-07-29] MEDS: oxcarbazepine 150mg tablet OGT SCH ×2 (10:56→20:20)
[2019-07-29] MEDS: PARoxetine 10mg tablet OGT SCH (10:56)
[2019-07-29] MEDS: LORazepam 0.5 MG tablet OGT SCH (10:57)
[2019-07-29] MEDS: busPIRone 5mg tablet OGT SCH ×2 (10:58→20:19)
[2019-07-29] MEDS: heparin, porcine 5000 units/ml vial SQ SCH ×2 (11:08→20:20)
[2019-07-29] MEDS ORDERED: levetiracetam 250mg tablet OGT SCH (11:30)
[2019-07-29] MEDS: phenobarbital 30mg tablet OGT SCH ×2 (12:35→20:20)
[2019-07-29 14:00] VITALS: BP 91/63
--- NOTE | 2019-07-29 14:37 | NUR ---
Reassessment: Pt tolerating NGTF at goal w/ water flushes 200ml Q4. LBM 07/28. Would benefit from PEG in order to meet long-term nutrition needs; TASNEEM d/w RN. Will continue to monitor. Rec: 1. NGTF via corpak using Jevity 1.2 at 55ml/hr goal; to provide 1320ml fluid, 1069ml free water, 1584kcals, and73g protein. 2. water flush 200ml q 4 hours 3. PALB Q /; daily wts 4. routine bowel care 5. would likely benefit from PEG in order to adequately meet repletion nutrition needs and long-term med/nutrition delivery needs Addendum: 07/29/19 at 1437 by Jose De Jesus Dumont RD Amended: Links added.
[2019-07-29 18:00] VITALS: BP 96/50
[2019-07-29] MEDS: levetiracetam 250mg tablet OGT SCH (20:19)
[2019-07-29] MEDS: insulin glargine (Lantus) pen - multi-dose SQ SCH (21:00)
[2019-07-29 22:00] VITALS: BP 103/63
[2019-07-30 06:00] VITALS: BP 104/58
--- NOTE | 2019-07-30 06:19 | NUR ---
Problems reprioritized. Patient report given, questions answered & plan of care reviewed with TANNA Goncalves.
[2019-07-30 07:42] LABS: ALBUMIN 2.4 G/DL (3.4-5.0); ANION GAP 3 (8-16); BLOOD UREA NITROGEN 11 MG/DL (7-18); BUN/CREATININE RATIO 24.4 (6.6-38.0); CALCIUM 8.1 MG/DL (8.5-10.1); CHLORIDE 106 MMOL/L (99-107); CREATININE 0.45 MG/DL (0.40-0.90); GLUCOSE 95 MG/DL (70-104); POTASSIUM 4.3 MMOL/L (3.5-5.1); SODIUM 142 MMOL/L (135-145); TOTAL CARBON DIOXIDE 33.1 MMOL/L (24-32); eGFR > 90 ML/MIN
[2019-07-30] MEDS: pantoprazole 40 MG vial IV SCH (07:54)
[2019-07-30] MEDS: levoFLOXACIN-Levaquin 500mg/D5 100 ML IV SCH (07:55)
[2019-07-30] MEDS: MULTIVIT-MIN/FERROUS GLUCONATE 9 MG/15 ML LIQUID OGT SCH (07:55)
[2019-07-30] MEDS: LORazepam 0.5 MG tablet OGT SCH (07:56)
[2019-07-30] MEDS: oxcarbazepine 150mg tablet OGT SCH ×2 (07:56→20:47)
[2019-07-30] MEDS: phenobarbital 30mg tablet OGT SCH ×2 (07:56→20:46)
[2019-07-30] MEDS: busPIRone 5mg tablet OGT SCH ×2 (07:56→20:46)
[2019-07-30] MEDS: lactobacillus rhamnosus 10,000 MMU CELLS/CAPSULE PO SCH ×2 (07:56→20:46)
[2019-07-30] MEDS: PARoxetine 10mg tablet OGT SCH (07:56)
[2019-07-30] MEDS: levoTHYROXINE 112mcg tablet OGT SCH (07:56)
[2019-07-30] MEDS: levetiracetam 250mg tablet OGT SCH ×2 (07:57→20:47)
[2019-07-30] MEDS: docusate sodium 100mg/10ml UD cup OGT SCH ×2 (07:58→20:46)
[2019-07-30] MEDS: heparin, porcine 5000 units/ml vial SQ SCH ×2 (07:59→20:47)
[2019-07-30] MEDS: K and/or MAG REPLACEMENT MC SCH (08:00)
[2019-07-30 10:00] VITALS: BP 105/58
--- NOTE | 2019-07-30 11:52 | NUR ---
restraints released in order to reposition and provide rosa care. Pt not pulling at lines and tubing at this time. Seems able to understand reasoning as to why the feeding tube is in. Sitter is at the bedside watching closely. Will continue to monitor Addendum: 07/30/19 at 1156 by Alpa Argueta RN Amended: Links added.
[2019-07-30 18:00] VITALS: BP 104/51
--- NOTE | 2019-07-30 19:54 | NUR ---
notified by sitter that patient had a siezure for about 45 sec. patient was inct. of urine. VS taken 137/63, 84, resp 24 O2 decreased 84. bumped her up to 5 LPM
[2019-07-30] MEDS: insulin glargine (Lantus) pen - multi-dose SQ SCH (21:00)
[2019-07-30 22:00] VITALS: BP 95/57
[2019-07-31 06:00] VITALS: BP 84/44
--- NOTE | 2019-07-31 06:38 | NUR ---
Problems reprioritized. Patient report given, questions answered & plan of care reviewed with TANNA Goncalves.
[2019-07-31 06:56] LABS: ALBUMIN 2.6 G/DL (3.4-5.0); ANION GAP 4 (8-16); BLOOD UREA NITROGEN 9 MG/DL (7-18); CALCIUM 8.7 MG/DL (8.5-10.1); CHLORIDE 105 MMOL/L (99-107); CREATININE 0.53 MG/DL (0.40-0.90); GLUCOSE 83 MG/DL (70-104); POTASSIUM 4.7 MMOL/L (3.5-5.1); SODIUM 142 MMOL/L (135-145); TOTAL CARBON DIOXIDE 32.8 MMOL/L (24-32); eGFR > 90 ML/MIN
[2019-07-31] MEDS: MULTIVIT-MIN/FERROUS GLUCONATE 9 MG/15 ML LIQUID OGT SCH (07:26)
[2019-07-31] MEDS: docusate sodium 100mg/10ml UD cup OGT SCH ×2 (07:26→20:32)
[2019-07-31] MEDS: levoFLOXACIN-Levaquin 500mg/D5 100 ML IV SCH (07:27)
[2019-07-31] MEDS: oxcarbazepine 150mg tablet OGT SCH ×2 (07:27→20:32)
[2019-07-31] MEDS: levetiracetam 250mg tablet OGT SCH ×2 (07:27→20:33)
[2019-07-31] MEDS: phenobarbital 30mg tablet OGT SCH ×2 (07:27→20:33)
[2019-07-31] MEDS: lactobacillus rhamnosus 10,000 MMU CELLS/CAPSULE PO SCH ×2 (07:27→20:32)
[2019-07-31] MEDS: levoTHYROXINE 112mcg tablet OGT SCH (07:27)
[2019-07-31] MEDS: LORazepam 0.5 MG tablet OGT SCH (07:28)
[2019-07-31] MEDS: PARoxetine 10mg tablet OGT SCH (07:28)
[2019-07-31] MEDS: busPIRone 5mg tablet OGT SCH ×2 (07:28→20:32)
[2019-07-31] MEDS: heparin, porcine 5000 units/ml vial SQ SCH ×2 (07:29→20:33)
[2019-07-31] MEDS: pantoprazole 40 MG vial IV SCH (08:00)
[2019-07-31] MEDS: K and/or MAG REPLACEMENT MC SCH (08:00)
--- NOTE | 2019-07-31 08:06 | NUR ---
pt had a witnessed seizure, about 10 seconds in length. sa02 is maintained. Pt is currently post ictal Addendum: 07/31/19 at 0810 by Alpa Argueta RN Amended: Links added.
[2019-07-31 10:00] VITALS: BP 115/65
--- NOTE | 2019-07-31 10:21 | NUR ---
Resource RN covering for me informed me that pt pulled her corpak out several centimeters. Sitter at bedside. I discussed with ELVA Lyon and he advised it was ok to try and readvance and then xray to check placement. I readvanced to previous taped measurement of 70 cm, pt tolerated well and sats are maintained. Xray says they can visualize the corpak for placement even without the stylet inside. If the corpak is well visualized and placement is ok, then we will leave it in. If not I will remove it and notify the MD. With pt being much more alert now she may be more willing to try PO foods (puree and thickened, per MD) and maybe more so if the corpak is absent
[2019-07-31 18:00] VITALS: BP 87/44
[2019-07-31] MEDS: insulin glargine (Lantus) pen - multi-dose SQ SCH (20:28)
[2019-07-31 22:00] VITALS: BP 109/45
[2019-08-01 06:00] VITALS: BP 80/50
--- NOTE | 2019-08-01 06:11 | NUR ---
Problems reprioritized. Patient report given, questions answered & plan of care reviewed with TANNA Sahu.
[2019-08-01 07:38] LABS: ALBUMIN 2.8 G/DL (3.4-5.0); ANION GAP 3 (8-16); BLOOD UREA NITROGEN 12 MG/DL (7-18); BUN/CREATININE RATIO 26.1 (6.6-38.0); CALCIUM 8.6 MG/DL (8.5-10.1); CHLORIDE 103 MMOL/L (99-107); CREATININE 0.46 MG/DL (0.40-0.90); GLUCOSE 69 MG/DL (70-104); POTASSIUM 4.1 MMOL/L (3.5-5.1); SODIUM 138 MMOL/L (135-145); TOTAL CARBON DIOXIDE 31.9 MMOL/L (24-32); eGFR > 90 ML/MIN
[2019-08-01] MEDS: K and/or MAG REPLACEMENT MC SCH (08:00)
[2019-08-01] MEDS: levoFLOXACIN-Levaquin 500mg/D5 100 ML IV SCH (08:11)
[2019-08-01] MEDS: MULTIVIT-MIN/FERROUS GLUCONATE 9 MG/15 ML LIQUID OGT SCH (08:12)
[2019-08-01] MEDS: pantoprazole 40 MG vial IV SCH (08:12)
[2019-08-01] MEDS: LORazepam 0.5 MG tablet OGT SCH (08:12)
[2019-08-01] MEDS: busPIRone 5mg tablet OGT SCH ×2 (08:12→20:49)
[2019-08-01] MEDS: docusate sodium 100mg/10ml UD cup OGT SCH ×2 (08:13→20:49)
[2019-08-01] MEDS: levetiracetam 250mg tablet OGT SCH ×2 (08:13→20:49)
[2019-08-01] MEDS: phenobarbital 30mg tablet OGT SCH ×2 (08:14→20:48)
[2019-08-01] MEDS: levoTHYROXINE 112mcg tablet OGT SCH (08:14)
[2019-08-01] MEDS: oxcarbazepine 150mg tablet OGT SCH ×2 (08:14→20:49)
[2019-08-01] MEDS: PARoxetine 10mg tablet OGT SCH (08:14)
[2019-08-01] MEDS: lactobacillus rhamnosus 10,000 MMU CELLS/CAPSULE PO SCH ×2 (08:14→20:48)
[2019-08-01] MEDS: heparin, porcine 5000 units/ml vial SQ SCH ×2 (08:15→20:50)
[2019-08-01 10:00] VITALS: BP 92/35
[2019-08-01] MEDS: dextrose 5%-1/2 normal saline 1,000 ML IV SCH (14:00)
--- NOTE | 2019-08-01 16:35 | NUR ---
RN TC: requests pt be placed on full liquids diet during the day since back at baseline and wants NGTF to run nocturnally [id number] at 25ml/hr. Pt previously NPO per SP recs; RD recommended SP BSS first thing tomorrow AM. RN reports pt puts hands in front of face for PO of any kind including tape which required 3 RN's today. Pt having hypoglycemia during the day with nutrition not running. Current nocturnal rate not to meet pt repletion nutrition needs only providing 240kcals and 11g protein 11-15% of pt nutrition needs; RD notified RN. Pt would benefit from continual nutrition or cyclic nutrition using pt prior total nutrition volume in order to meet needs. Will monitor for SP recs in AM and cyclic nutrition advancement. RD d/w RN given likely only way to meet pt needs will be PEG vs cyclic nocturnal NGTF long-term. Still to receive 200ml Q4 water flushes per RN. Will continue to monitor. Rec: 1. NGTF via corpak using Jevity 1.2 at 55ml/hr goal; to provide 1320ml fluid, 1069ml free water, 1584kcals, and73g protein. 2. water flush 200ml q 4 hours 3. PALB Q /; daily wts 4. routine bowel care 5. would likely benefit from PEG or long-term nocturnal NGTF in order to adequately meet repletion nutrition needs and long-term med/nutrition delivery needs Addendum: 08/01/19 at 1636 by Jose De Jesus Dumont RD Amended: Links added.
[2019-08-01] MEDS ORDERED: dextrose ORAL solution 15 GM/59 ML bottle OGT PRN ×2 (17:05→17:06)
[2019-08-01 18:00] VITALS: BP 101/45
--- NOTE | 2019-08-01 18:30 | NUR ---
Patient in room [facility]TH[facility] 4020. I have received report from TANNA ARELLANO and had the opportunity to ask questions and assume patient care.
[2019-08-01] MEDS: insulin glargine (Lantus) pen - multi-dose SQ SCH (21:00)
[2019-08-01 22:00] VITALS: BP 101/54
[2019-08-02 06:00] VITALS: BP 95/50
--- NOTE | 2019-08-02 06:22 | NUR ---
Problems reprioritized. Patient report given, questions answered & plan of care reviewed with TANNA ARELLANO.
--- NOTE | 2019-08-02 06:30 | NUR ---
Problems reprioritized. Patient report given, questions answered & plan of care reviewed with TANNA ARELLANO.
--- NOTE | 2019-08-02 06:30 | NUR ---
Patient in room [facility]TH[facility] 4020. I have received report from TANNA Liang and had the opportunity to ask questions and assume patient care.
[2019-08-02] MEDS: K and/or MAG REPLACEMENT MC SCH (08:00)
[2019-08-02 08:05] LABS: PREALBUMIN 18.9 MG/DL (19-36)
[2019-08-02] MEDS: levoFLOXACIN-Levaquin 500mg/D5 100 ML IV SCH (09:09)
[2019-08-02] MEDS: pantoprazole 40 MG vial IV SCH (09:09)
[2019-08-02] MEDS: LORazepam 0.5 MG tablet OGT SCH (09:10)
[2019-08-02] MEDS: levetiracetam 250mg tablet OGT SCH ×2 (09:10→20:40)
[2019-08-02] MEDS: busPIRone 5mg tablet OGT SCH ×2 (09:10→20:40)
[2019-08-02] MEDS: MULTIVIT-MIN/FERROUS GLUCONATE 9 MG/15 ML LIQUID OGT SCH (09:10)
[2019-08-02] MEDS: docusate sodium 100mg/10ml UD cup OGT SCH ×2 (09:10→20:40)
[2019-08-02] MEDS: levoTHYROXINE 112mcg tablet OGT SCH (09:11)
[2019-08-02] MEDS: phenobarbital 30mg tablet OGT SCH ×2 (09:11→20:40)
[2019-08-02] MEDS: PARoxetine 10mg tablet OGT SCH (09:11)
[2019-08-02] MEDS: oxcarbazepine 150mg tablet OGT SCH ×2 (09:11→20:40)
[2019-08-02] MEDS: lactobacillus rhamnosus 10,000 MMU CELLS/CAPSULE PO SCH ×2 (09:11→20:40)
[2019-08-02] MEDS: heparin, porcine 5000 units/ml vial SQ SCH ×2 (09:13→20:41)
[2019-08-02 10:00] VITALS: BP 110/54
--- NOTE | 2019-08-02 14:30 | NUR ---
Pts dad arrived to visit. Spoke with pts father at length regarding her unwillingness to eat a pureed diet at this time. Informed him she did pass a swallowing evaluation, but when meals arrive she pushes the utensils away from her face and has refused to eat x3 days. Pt in cyclic TF at noc [id number] with IV fluids [id number]. Father stated that at the care facility that she lives at, there are different caregivers who feed her each meal, and she goes to a daycare during the middle of each day where a different caregiver feeds her each day. Dad arrived at 1800 to assist his daughter with eating her dinner. Dad made multiple attempts to feed pt. Pt either blocked him with her right hand, and attempted to tuck her chin into her chest, with her face down. After multiple breaks and attempts, the pt did not eat any of the full liquid tray she was offered. Will inform in am.
--- NOTE | 2019-08-02 16:11 | NUR ---
F/u: Pt advanced to pureed/thins per PASTRY ARTIST today; TASNEEM d/w PASTRY ARTIST who reports pt can eat but simply holds hands in from of face still to decline most PO. Per RN; pt father/POA reports pt typically has breakfast and dinner at [facility] but lunch somewhere else and different staff each day to nobody to develop rapport w/ pt. Pt only PO few sips of apple juice on spoon and bite of pudding last night per RN w/ essentially 0kcal/protein intake today. RN reports pt father to come in tonight at dinner time in hopes pt will let him feed her since familiar face. If successful may be more beneficial to have him help w/ meals. Pt would benefit from nocturnal feeds dosed to prior nutrition support volume in order to provide adequate nutrition in severely malnourished pt. Will continue to monitor. Addendum: 08/02/19 at 1612 by Jose De Jesus Dumont RD Amended: Links added.
[2019-08-02] MEDS: dextrose 5%-1/2 normal saline 1,000 ML IV SCH (16:42)
[2019-08-02 18:00] VITALS: BP 90/57
--- NOTE | 2019-08-02 18:38 | NUR ---
Problems reprioritized. Patient report given, questions answered & plan of care reviewed with TANNA Liang.
[2019-08-02] MEDS: insulin glargine (Lantus) pen - multi-dose SQ SCH (21:00)
[2019-08-02 22:00] VITALS: BP 94/47
[2019-08-03 06:00] VITALS: BP 85/43
--- NOTE | 2019-08-03 06:29 | NUR ---
Problems reprioritized. Patient report given, questions answered & plan of care reviewed with TANNA ARELLANO.
--- NOTE | 2019-08-03 06:30 | NUR ---
Patient in room [facility]TH[facility] 4020. I have received report from TANNA Liang and had the opportunity to ask questions and assume patient care.
[2019-08-03] MEDS: K and/or MAG REPLACEMENT MC SCH (08:00)
[2019-08-03] MEDS: LORazepam 0.5 MG tablet OGT SCH (09:33)
[2019-08-03] MEDS: pantoprazole 40 MG vial IV SCH (09:33)
[2019-08-03] MEDS: busPIRone 5mg tablet OGT SCH (09:33)
[2019-08-03] MEDS: MULTIVIT-MIN/FERROUS GLUCONATE 9 MG/15 ML LIQUID OGT SCH (09:34)
[2019-08-03] MEDS: docusate sodium 100mg/10ml UD cup OGT SCH (09:34)
[2019-08-03] MEDS: PARoxetine 10mg tablet OGT SCH (09:35)
[2019-08-03] MEDS: phenobarbital 30mg tablet OGT SCH (09:35)
[2019-08-03] MEDS: levetiracetam 250mg tablet OGT SCH (09:35)
[2019-08-03] MEDS: lactobacillus rhamnosus 10,000 MMU CELLS/CAPSULE PO SCH ×2 (09:36→20:00)
[2019-08-03] MEDS: heparin, porcine 5000 units/ml vial SQ SCH ×2 (09:36→20:50)
[2019-08-03] MEDS: oxcarbazepine 150mg tablet OGT SCH (09:36)
[2019-08-03] MEDS: levoTHYROXINE 112mcg tablet OGT SCH (09:36)
[2019-08-03 10:00] VITALS: BP 82/44
--- NOTE | 2019-08-03 11:30 | NUR ---
Weaned Oxygen to RA. Pt has been 98% on room air throughout the morning. Tolerated wel. Spoke with regarding my conversation and witnessed feeding attempt by pts dad to give her the full liquid meal at dinner last night, but informed pt refused the entire meal. Informed Dr. Kan that pts brian is available to speak to him at anytime, and had informed me that as POA, he knows the patient would not like to have a feeding tube at any time. stated he would meet with pts dad today. TC placed to pts dad, who immediately came in to [facility] at 1200. met with pts dad to discuss Corpak, Tube Feeding and pt wishes. Pts father stated "I don't think she wants to eat because that tube is in her throat. After meeting with pts dad, received orders from Dr. Kan to dc Corpak, Tube feedings and associated orders. Orders entered and Corpak dc'd at 1230. At approximately 1245, BRIGHT Swenson who had been sitting with the pt attempted to feed the patient the full liquid tray. Pt ate all but the soup (ate mashed potatoes, gravy, pureed meat, beans and 2 cartons of milk immediately, with no refusal to eating tray. Tolerated well. No choking at time of eating. Notified Dr. Kan and pts dad who was elated at the immediate resolve of refusing trays. Will continue to monitor.
--- NOTE | 2019-08-03 14:26 | NUR ---
Reassessment: Pt refused dinner last night when father/POA attempted to assist w/ feeds per RN. RN reports father says never seeing pt like this and declines pt receiving PEG for long-term nutrition. Per today corpak to be pulled w/ half NS/D5 to run at 50ml/hr continuously. RN reports d/w father and had concerns regarding corpak effecting pt behavior. Pt corpak initially placed in order to meet nutrition needs following low PO intake on admit. At this time not meeting patient nutrient needs only receiving 204 kcals of dextrose/day and no protein only meeting 12% kcal and 0% protein needs. Still having episodes of hypoglycemia w/ prior nocturnal low rate feeds. Pt requires nutrition support in order to adequately meet needs; TASNEEM [email or web address] regarding nutrient needs. requests finger foods for PO at this time since what she eats at [facility]. Pt currently on pureed/thin liquid diet per SP; RD recommended SP f/u BSS given MD requests. Currently unable to provide finger foods on pureed diet. Also noted pt has new quarter size sacral maceration wound .LBM 07/30 w/ little nutrition. Per RN takes an hour just to crush pt meds and administer via NG; now will be given in applesauce if pt willing. TASNEEM d/w RN regarding new bed scale wt since last 07/25 in order to determine if further wt loss this admit. Will continue to monitor for nutrition needs in severely malnourished patient. Rec: 1. supplemental nutrition support in order to adequately meet pt needs w /low PO hx. IF NGTF via corpak per rec using Jevity 1.2 at 55ml/hr goal; to provide 1320ml fluid, 1069ml free water, 1584kcals, and73g protein. 2. IF NGTF -water flush 200ml q 4 hours 3. PALB Q /; daily wts 4. routine bowel care 5. would benefit from nutrition support in order to adequately meet repletion nutrition and wound healing needs this admit. Addendum: 08/03/19 at 1426 by Jose De Jesus Dumont RD Amended: Links added.
[2019-08-03 18:00] VITALS: BP 114/40
--- NOTE | 2019-08-03 18:30 | NUR ---
Problems reprioritized. Patient report given, questions answered & plan of care reviewed with TANNA Wilkinson.
--- NOTE | 2019-08-03 18:30 | NUR ---
Received report from Adelina CISSE, assumed care of patient.
[2019-08-03] MEDS ORDERED: acetaminophen 325mg/10.15ml oral unit dose solution PO PRN ×2 (20:25→20:26)
[2019-08-03] MEDS ORDERED: dextrose ORAL solution 15 GM/59 ML bottle PO PRN ×2 (20:26→20:27)
[2019-08-03] MEDS ORDERED: LORazepam 0.5 MG tablet PO PRN (20:33)
[2019-08-03] MEDS ORDERED: mag hydrox/Alum hydrox/simeth 30ml oral suspension PO PRN (20:34)
[2019-08-03] MEDS ORDERED: POTASSIUM BICARB 20meq eff tab 20 MEQ TABLET.EFF PO PRN ×2 (20:38)
[2019-08-03] MEDS: insulin glargine (Lantus) pen - multi-dose SQ SCH (21:00)
[2019-08-03] MEDS: phenobarbital 30mg tablet PO SCH (21:00)
[2019-08-03] MEDS: oxcarbazepine 150mg tablet PO SCH (21:01)
[2019-08-03] MEDS: levetiracetam 250mg tablet PO SCH (21:01)
--- NOTE | 2019-08-03 21:13 | NUR ---
Attempt made to administer HS medications as ordered. Pt refused to take any medications, shaking her head no. Pt did not prevent the heparin sq administration.
[2019-08-03 22:00] VITALS: BP 97/54
[2019-08-04] MEDS: LORazepam 2 mg/ml vial IV PRN (03:05)
[2019-08-04 06:00] VITALS: BP 85/50
--- NOTE | 2019-08-04 06:00 | NUR ---
I have received report from Jaja Lucas RN and had the opportunity to ask questions and assume patient care.
[2019-08-04 06:05] LABS: BASOPHILS # (AUTO) 0.1 X10'3 (0-0.2); EOSINOPHILS # (AUTO) 0.1 X10'3 (0-0.9); HEMATOCRIT 28.4 % (35.0-45.0); HEMOGLOBIN 9.7 g/dl (12.0-16.0); LYMPHOCYTES # (AUTO) 1.5 X10'3 (1.1-4.8); LYMPHOCYTES % (AUTO) 23.2 % (21-51); MEAN CORPUSCULAR HEMOGLOBIN 32.9 PG (27.0-31.0); MEAN CORPUSCULAR VOLUME 96.9 FL (78-98); MEAN PLATELET VOLUME 8.9 FL (7.4-10.4); MONOCYTES # (AUTO) 0.5 X10'3 (0-0.9); NEUTROPHILS # (AUTO) 4.3 X10'3 (1.8-7.7); NEUTROPHILS % (AUTO) 66.8 % (42-75); PLATELET COUNT 521 X10'3 (140-440); RED BLOOD COUNT 2.93 X10'6 (4.20-5.60); RED CELL DISTRIBUTION WIDTH 17.3 % (11.5-14.5); WHITE BLOOD COUNT 6.5 X10'3 (4.5-11.0)
[2019-08-04 06:22] LABS: ANION GAP 2 (8-16); BLOOD UREA NITROGEN 11 MG/DL (7-18); BUN/CREATININE RATIO 23.4 (6.6-38.0); CHLORIDE 106 MMOL/L (99-107); CREATININE 0.47 MG/DL (0.40-0.90); GLUCOSE 95 MG/DL (70-104); POTASSIUM 4.1 MMOL/L (3.5-5.1); SODIUM 140 MMOL/L (135-145); TOTAL CARBON DIOXIDE 31.8 MMOL/L (24-32)
[2019-08-04 06:23] LABS: ALANINE AMINOTRANSFERASE 43 U/L (12-78); ALBUMIN 2.8 G/DL (3.4-5.0); ALBUMIN/GLOBULIN RATIO 0.7 (1.1-1.5); ALKALINE PHOSPHATASE 99 IU/L (46-116); ASPARTATE AMINO TRANSFERASE 32 U/L (10-37); BILIRUBIN,TOTAL 0.2 MG/DL (0.1-1.0); CALCIUM 8.4 MG/DL (8.5-10.1); TOTAL PROTEIN 6.9 G/DL (6.4-8.2); eGFR > 90 ML/MIN
--- NOTE | 2019-08-04 06:25 | NUR ---
Report given to Kishore CISSE.
[2019-08-04] MEDS: PARoxetine 10mg tablet PO SCH (08:00)
[2019-08-04] MEDS: MULTIVIT-MIN/FERROUS GLUCONATE 9 MG/15 ML LIQUID PO SCH (08:00)
[2019-08-04] MEDS: docusate sodium 100mg/10ml UD cup PO SCH ×2 (08:00→22:08)
[2019-08-04] MEDS: oxcarbazepine 150mg tablet PO SCH ×2 (08:00→22:04)
[2019-08-04] MEDS: lactobacillus rhamnosus 10,000 MMU CELLS/CAPSULE PO SCH ×2 (08:00→22:04)
[2019-08-04] MEDS: levoTHYROXINE 112mcg tablet PO SCH (08:00)
[2019-08-04] MEDS: levetiracetam 250mg tablet PO SCH (08:00)
[2019-08-04] MEDS: phenobarbital 30mg tablet PO SCH ×2 (08:00→22:10)
[2019-08-04] MEDS: busPIRone 5mg tablet PO SCH ×2 (08:00→22:06)
[2019-08-04] MEDS: LORazepam 0.5 MG tablet PO SCH (08:00)
[2019-08-04] MEDS: K and/or MAG REPLACEMENT MC SCH (08:00)
[2019-08-04] MEDS: heparin, porcine 5000 units/ml vial SQ SCH ×2 (08:37→22:25)
[2019-08-04] MEDS: pantoprazole 40 MG vial IV SCH (08:37)
[2019-08-04 10:00] VITALS: BP 106/62
[2019-08-04] MEDS: dextrose 5%-1/2 normal saline 1,000 ML IV SCH (10:23)
--- NOTE | 2019-08-04 12:08 | NUR ---
I spoke with Dr. Kohler about this patient's medications. I let him know there was a seizure reported by mini shifter. The pt. is starting to eat some but is still refusing oral medications. We are switching her seizure medications back to IV until she starts eating more and taking oral medications.
--- NOTE | 2019-08-04 12:22 | NUR ---
F/u: RN reports pt guarding and refused all meds/PO this AM. LBM 07/30 receiving colace but unable to take PO today and low nutrition intake hx. Will monitor for PO hx given last night did improve to 75% lunch and dinner following corpak removal. IF low PO persists would benefit from nocturnal feeds to meet repletion needs. Addendum: 08/04/19 at 1222 by Jose De Jesus Dumont RD Amended: Links added.
[2019-08-04] MEDS: levetiracetam inj 1,500 MG in normal saline 100ml IV soln 85 ML IV SCH ×2 (12:42→22:08)
--- NOTE | 2019-08-04 12:56 | NUR ---
Pt. is letting us feed her some lunch today.
--- NOTE | 2019-08-04 18:15 | NUR ---
Patient in room ORTHO 4020B. I have received report from TANNA Novak and had the opportunity to ask questions and assume patient care.
--- NOTE | 2019-08-04 18:26 | NUR ---
Problems reprioritized. Patient report given, questions answered & plan of care reviewed with Ronna CISSE.
[2019-08-04] MEDS: insulin glargine (Lantus) pen - multi-dose SQ SCH (21:00)
--- NOTE | 2019-08-04 21:45 | NUR ---
Pt refused to take medications. Pt was pushing me away and shaking head no. I placed pills in applesauce and pt took them that way.
[2019-08-04 23:00] VITALS: BP 101/58
[2019-08-05] MEDS: dextrose 5%-1/2 normal saline 1,000 ML IV SCH (00:34)
[2019-08-05 05:10] VITALS: BP 105/64
--- NOTE | 2019-08-05 06:10 | NUR ---
Problems reprioritized. Patient report given, questions answered & plan of care reviewed with TANNA Harrington.
[2019-08-05] MEDS: K and/or MAG REPLACEMENT MC SCH (08:00)
[2019-08-05] MEDS: docusate sodium 100mg/10ml UD cup PO SCH (09:11)
[2019-08-05] MEDS: phenobarbital 30mg tablet PO SCH (09:12)
[2019-08-05] MEDS: PARoxetine 10mg tablet PO SCH (09:12)
[2019-08-05] MEDS: busPIRone 5mg tablet PO SCH (09:12)
[2019-08-05] MEDS: lactobacillus rhamnosus 10,000 MMU CELLS/CAPSULE PO SCH (09:12)
[2019-08-05] MEDS: oxcarbazepine 150mg tablet PO SCH (09:12)
[2019-08-05] MEDS: LORazepam 0.5 MG tablet PO SCH (09:12)
[2019-08-05] MEDS: MULTIVIT-MIN/FERROUS GLUCONATE 9 MG/15 ML LIQUID PO SCH (09:13)
[2019-08-05] MEDS: levoTHYROXINE 112mcg tablet PO SCH (09:13)
[2019-08-05] MEDS: levetiracetam inj 1,500 MG in normal saline 100ml IV soln 85 ML IV SCH (09:13)
[2019-08-05] MEDS: pantoprazole 40 MG vial IV SCH (09:13)
[2019-08-05] MEDS: heparin, porcine 5000 units/ml vial SQ SCH (09:14)
[2019-08-05 10:00] VITALS: BP 91/42
--- NOTE | 2019-08-05 11:52 | NUR ---
Reassessment: Pt PO 100% breakfast PO improved from yesterday w/ feeder. To remains on pureed/thin liquids per SP. LBM 07/30 likely also effecting PO receiving colace; TASNEEM d/w RN regarding additional bowel care per MD approval. Receiving Dex/NS and MVI. Will continue to monitor for further PO hx and ONS needs IF PO continues to improve. Rec: 1. IF NGTF via corpak per MD; rec using Jevity 1.2 at 55ml/hr goal; to provide 1320ml fluid, 1069ml free water, 1584kcals, and73g protein. 2. IF NGTF -water flush 200ml q 4 hours; PALB Q /; daily wts 3. continue pureed/thin liquid diet per SP recs; monitor for ONS needs IF PO consistently improves 4. routine bowel care 5. weekly wts Addendum: 08/05/19 at 1152 [address] Jose De Jesus Dumont RD Amended: Links added.
--- NOTE | 2019-08-05 14:09 | NUR ---
notified father (Jyotsna Cordon at [phone]) about pt d/c today, and father told me to notify demetrice [phone], i spoke w/demetrice and demetrice said that she is going to talk to owner professional engineer of facility in which pt resides and get a ride for pt, i told demetrice that if there is any problems with obtaining a ride home to please notify father colton
--- NOTE | 2019-08-05 15:05 | NUR ---
i called demetrice again to get a draft roller picker time for pt, demetrice said that there should be someone to pick pt up soon but she did not have a draft roller picker time and that demetrice would f/u on that d/c time
--- NOTE | 2019-08-05 15:39 | NUR ---
demetrice at the bedside to take patient back to [facility] [place] and father Jyotsna is aware also. discharge packet reviewed and signed by caregiver. Patient leaving with all personal belongings and personal wheelchair
== END 2019-08-05 15:50 | disposition home or self-care (01) | DRG 720 ==
LOC: ER 09:11 → ED HOLD 13:10 → PCU 3S 14:26 → ICU 2S 07-18 21:15 → ORTHO 4S 07-26 03:07
PROVIDERS: ADMIT Family Medicine; ATTEND Family Medicine
PROC: 3E0G76Z Introduction of Nutritional Substance into Upper GI, Via Natural or Artificial Opening (ICD-10-PCS; principal; 2019-07-17)
DX: A41.9 Sepsis, unspecified organism (principal); E43 Unspecified severe protein-calorie malnutrition; G93.41 Metabolic encephalopathy; J18.9 Pneumonia, unspecified organism; D69.6 Thrombocytopenia, unspecified; J80 Acute respiratory distress syndrome; E87.0 Hyperosmolality and hypernatremia; E87.8 Other disorders of electrolyte and fluid balance, not elsewhere classified; E03.9 Hypothyroidism, unspecified; G80.8 Other cerebral palsy; G40.909 Epilepsy, unspecified, not intractable, without status epilepticus; Z68.23 Body mass index [BMI] 23.0-23.9, adult; E86.0 Dehydration; J98.11 Atelectasis; D64.9 Anemia, unspecified; R62.59 Other lack of expected normal physiological development in childhood
CPT/HCPCS: 36415; 36600; 70450; 71045; 71260; 74018; 80048; 80053; 80185; 80202; 81001; 81025; 82803; 82948; 83605; 83735; 83935; 84134; 84145; 84443; 85018; 85025; 85379; 85384; 85610; 85730; 86738; 86885; 86900; 86901; 87040; 87081; 87088; 87502; 87503; 92508; 92616; 93306; 94760; 96372; 97110; 97112; 97161; 97162; 97530; 97535; 99285; C9113; G0378; J0456; J0692; J1644; J1815; J1940; J1953; J1956; J2060; J2543; J2560; J2920; J3370; J3480; J3490; J7030; J7040; J7050; P9045; P9047; Q9967

== ENCOUNTER 2020-09-02 19:03 | Emergency (ER) | payer MEDICAID ==
[~2020-09-02] VITALS: Ht 154.9 cm; Wt 50.0 kg
[~2020-09-02 19:03] MED LIST changes: -OXCA600T5 PO
[2020-09-02 20:19] LABS: BASOPHILS % (AUTO) 0.8 % (0-1); EOSINOPHILS % (AUTO) 1.1 % (0-6); HEMATOCRIT 36.5 % (35.0-45.0); HEMOGLOBIN 12.2 g/dl (12.0-16.0); LYMPHOCYTES # (AUTO) 1.6 X10'3 (1.1-4.8); LYMPHOCYTES % (AUTO) 41.9 % (21-51); MEAN CORPUSCULAR HEMOGLOBIN 32.5 PG (27.0-31.0); MEAN CORPUSCULAR HGB CONC 33.3 g/dL (33.0-36.5); MEAN CORPUSCULAR VOLUME 97.6 FL (78-98); MEAN PLATELET VOLUME 10.4 FL (7.4-10.4); MONOCYTES # (AUTO) 0.3 X10'3 (0-0.9); MONOCYTES % (AUTO) 7.9 % (2-12); NEUTROPHILS # (AUTO) 1.9 X10'3 (1.8-7.7); NEUTROPHILS % (AUTO) 48.3 % (42-75); PLATELET COUNT 131 X10'3 (140-440); RED BLOOD COUNT 3.74 X10'6 (4.20-5.60); RED CELL DISTRIBUTION WIDTH 13.8 % (11.5-14.5); WHITE BLOOD COUNT 3.9 X10'3 (4.5-11.0)
[2020-09-02 20:33] LABS: ALANINE AMINOTRANSFERASE 30 U/L (12-78); ALBUMIN 3.7 G/DL (3.4-5.0); ALKALINE PHOSPHATASE 97 IU/L (46-116); ANION GAP 6 (8-16); ASPARTATE AMINO TRANSFERASE 42 U/L (10-37); BILIRUBIN,TOTAL 0.1 MG/DL (0.1-1.0); BLOOD UREA NITROGEN 18 MG/DL (7-18); BUN/CREATININE RATIO 25.4 (6.6-38.0); CALCIUM 8.6 MG/DL (8.5-10.1); CHLORIDE 115 MMOL/L (99-107); CREATININE 0.71 MG/DL (0.40-0.90); GLUCOSE 88 MG/DL (70-104); POTASSIUM 4.6 MMOL/L (3.5-5.1); SODIUM 154 MMOL/L (135-145); TOTAL CARBON DIOXIDE 33.2 MMOL/L (24-32); TOTAL PROTEIN 7.4 G/DL (6.4-8.2); eGFR 87 ML/MIN
--- NOTE | 2020-09-02 21:18 | NUR ---
TO CT VIA [facility]
--- NOTE | 2020-09-02 21:36 | NUR ---
no urine needed per md
[2020-09-02 22:36] VITALS: BP 125/52
== END 2020-09-02 22:38 | disposition home or self-care (01) ==
LOC: ER 19:03
DX: G40.409 Other generalized epilepsy and epileptic syndromes, not intractable, without status epilepticus (principal); E87.1 Hypo-osmolality and hyponatremia; E05.90 Thyrotoxicosis, unspecified without thyrotoxic crisis or storm; G80.9 Cerebral palsy, unspecified; Z79.899 Other long term (current) drug therapy
CPT/HCPCS: 36415; 70450; 80053; 85025; 99284

== ENCOUNTER 2021-05-05 09:17 | Emergency (ER) | payer MEDICAID ==
[~2021-05-05] VITALS: Ht 154.9 cm; Wt 50.0 kg
[~2021-05-05 09:17] MED LIST changes: -OMEP40CA13 PO; +OMEP40CA21 PO
[2021-05-05 09:27] VITALS: BP 97/59
--- NOTE | 2021-05-05 12:51 | NUR ---
Patient seen and assessed by provider.
== END 2021-05-05 12:51 | disposition home or self-care (01) ==
LOC: ER 09:20
DX: S01.111A Laceration without foreign body of right eyelid and periocular area, initial encounter (principal); R56.9 Unspecified convulsions; E06.9 Thyroiditis, unspecified; Z79.899 Other long term (current) drug therapy; W18.39XA Other fall on same level, initial encounter; Y93.89 Activity, other specified; Y92.89 Other specified places as the place of occurrence of the external cause; Y99.8 Other external cause status
CPT/HCPCS: 12011; 70450; 72125; 99285

== ENCOUNTER 2022-02-13 09:49 | Emergency (ER) | payer MEDICAID ==
[~2022-02-13] VITALS: Ht 157.5 cm; Wt 31.8 kg
[2022-02-13 09:54] VITALS: BP 90/58
[2022-02-14] MEDS ORDERED: AMOX-115 PO (09:37)
== END 2022-02-13 11:46 | disposition home or self-care (01) ==
LOC: ER 09:50
DX: S01.81XA Laceration without foreign body of other part of head, initial encounter (principal); E07.9 Disorder of thyroid, unspecified; Z79.899 Other long term (current) drug therapy; W05.0XXA Fall from non-moving wheelchair, initial encounter; Z91.81 History of falling; Y93.89 Activity, other specified; Y92.89 Other specified places as the place of occurrence of the external cause; Y99.8 Other external cause status
CPT/HCPCS: 12011; 99284

== ENCOUNTER 2022-02-14 08:05 | Emergency (ER) | payer MEDICAID ==
[~2022-02-14] VITALS: Ht 172.7 cm; Wt 54.5 kg
[2022-02-14 09:37] VITALS: BP 97/63
[2022-02-14] MEDS ORDERED: AMOX-115 PO (09:37)
== END 2022-02-14 10:00 | disposition home or self-care (01) ==
LOC: ER 08:06
DX: T17.908A Unspecified foreign body in respiratory tract, part unspecified causing other injury, initial encounter (principal); G80.0 Spastic quadriplegic cerebral palsy; R05.9 Cough, unspecified; R53.1 Weakness; E05.90 Thyrotoxicosis, unspecified without thyrotoxic crisis or storm; Z86.69 Personal history of other diseases of the nervous system and sense organs; Z79.2 Long term (current) use of antibiotics; Z79.899 Other long term (current) drug therapy; X58.XXXA Exposure to other specified factors, initial encounter; Y93.89 Activity, other specified; Y92.89 Other specified places as the place of occurrence of the external cause; Y99.8 Other external cause status
CPT/HCPCS: 71045; 99283

== ENCOUNTER 2022-03-01 07:44 | Emergency (ER) | payer MEDICAID ==
[~2022-03-01] VITALS: Ht 152.4 cm; Wt 45.5 kg
== END 2022-03-01 10:25 | disposition home or self-care (01) ==
LOC: ER 07:45
DX: S01.81XA Laceration without foreign body of other part of head, initial encounter (principal); W19.XXXA Unspecified fall, initial encounter; Y93.89 Activity, other specified; Y92.89 Other specified places as the place of occurrence of the external cause; Y99.8 Other external cause status
CPT/HCPCS: 12011; 99282; 99284; A6449

== ENCOUNTER 2022-03-20 18:30 | Emergency (ER) | payer MEDICAID ==
[~2022-03-20] VITALS: Ht 172.7 cm; Wt 54.5 kg
[2022-03-20] MEDS ORDERED: LORazepam 2 mg/ml vial IM ONE (19:35)
[2022-03-20 20:33] VITALS: BP 134/79
--- NOTE | 2022-03-20 21:21 | NUR ---
PT WAS GIVEN IM ATIVAN FOR CT. XR TECH REPORTED THAT PT RESPONDED WELL TO THE MEDICATION AND DID GREAT DURING IMAGING.
== END 2022-03-20 22:15 | disposition home or self-care (01) ==
LOC: ER 18:30
DX: S09.90XA Unspecified injury of head, initial encounter (principal); E05.90 Thyrotoxicosis, unspecified without thyrotoxic crisis or storm; W19.XXXA Unspecified fall, initial encounter; Y93.89 Activity, other specified; Y92.89 Other specified places as the place of occurrence of the external cause; Y99.8 Other external cause status
CPT/HCPCS: 70450; 72125; 96372; 99284; J2060

== ENCOUNTER 2022-03-24 10:56 | Emergency (ER) | payer MEDICAID ==
[~2022-03-24] VITALS: Ht 144.8 cm; Wt 38.6 kg
[2022-03-24 12:13] VITALS: BP 129/72
[2022-03-24 12:24] LABS: BASOPHILS % (AUTO) 0.2 % (0-1); EOSINOPHILS % (AUTO) 0.2 % (0-6); HEMATOCRIT 36.9 % (35.0-45.0); HEMOGLOBIN 12.2 g/dl (12.0-16.0); LYMPHOCYTES # (AUTO) 1.5 X10'3 (1.1-4.8); LYMPHOCYTES % (AUTO) 20.9 % (21-51); MEAN CORPUSCULAR HEMOGLOBIN 32.8 PG (27.0-31.0); MEAN CORPUSCULAR HGB CONC 32.9 g/dL (33.0-36.5); MEAN CORPUSCULAR VOLUME 99.5 FL (78-98); MEAN PLATELET VOLUME 10.6 FL (7.4-10.4); MONOCYTES # (AUTO) 0.4 X10'3 (0-0.9); MONOCYTES % (AUTO) 5.3 % (2-12); NEUTROPHILS # (AUTO) 5.3 X10'3 (1.8-7.7); NEUTROPHILS % (AUTO) 73.4 % (42-75); PLATELET COUNT 132 X10'3 (140-440); RED BLOOD COUNT 3.71 X10'6 (4.20-5.60); RED CELL DISTRIBUTION WIDTH 13.5 % (11.5-14.5); WHITE BLOOD COUNT 7.2 X10'3 (4.5-11.0)
[2022-03-24 12:45] LABS: ANION GAP 8 (8-16); BLOOD UREA NITROGEN 25 MG/DL (7-18); BUN/CREATININE RATIO 41.7 (6.6-38.0); CALCIUM 8.7 MG/DL (8.5-10.1); CHLORIDE 111 MMOL/L (99-107); GLUCOSE 103 MG/DL (70-104); POTASSIUM 4.3 MMOL/L (3.5-5.1); SODIUM 151 MMOL/L (135-145); TOTAL CARBON DIOXIDE 32.3 MMOL/L (24-32); eGFR > 90 ML/MIN
[2022-03-24 12:46] LABS: ALANINE AMINOTRANSFERASE 92 U/L (12-78); ALBUMIN 4.2 G/DL (3.4-5.0); ALKALINE PHOSPHATASE 107 IU/L (46-116); ASPARTATE AMINO TRANSFERASE 63 U/L (10-37); BILIRUBIN,TOTAL 0.3 MG/DL (0.1-1.0); TOTAL PROTEIN 8.6 G/DL (6.4-8.2)
[2022-03-24] MEDS ORDERED: AMOX200S8 PO (12:58)
[2022-03-24 14:31] LABS: PLATELET ESTIMATE DECREASED; TOTAL CELLS COUNTED 100
== END 2022-03-24 13:24 | disposition home or self-care (01) ==
LOC: ER 10:57
DX: R05.9 Cough, unspecified (principal); G80.9 Cerebral palsy, unspecified; E05.90 Thyrotoxicosis, unspecified without thyrotoxic crisis or storm; Z79.2 Long term (current) use of antibiotics; Z79.899 Other long term (current) drug therapy
CPT/HCPCS: 36415; 71045; 80053; 84145; 85007; 85025; 99284

== ENCOUNTER 2023-05-29 07:58 | Emergency (ER) | payer MEDICAID ==
[~2023-05-29] VITALS: Ht 147.3 cm; Wt 40.9 kg
[2023-05-29 08:04] VITALS: BP 99/61; RESP 18; TEMP 97.7
== END 2023-05-29 09:50 | disposition home or self-care (01) ==
LOC: ER 08:01
DX: S00.83XA Contusion of other part of head, initial encounter (principal); W18.39XA Other fall on same level, initial encounter; Y93.89 Activity, other specified; Y92.89 Other specified places as the place of occurrence of the external cause; Y99.8 Other external cause status
CPT/HCPCS: 99281

== ENCOUNTER 2023-08-14 12:24 | Inpatient (IN) | payer MEDICAID ==
[~2023-08-14] VITALS: Ht 149.9 cm; Wt 43.0 kg
[2023-08-14] MEDS ORDERED: morphine 4 MG/ML inj SYRINge IV ONE ×2 (16:50)
[2023-08-14] MEDS ORDERED: morphine 10mg/ml inj. IM ONE (17:15)
[2023-08-14] MEDS ORDERED: LORazepam 1 MG tablet PO ONE (17:15)
[2023-08-14 17:46] LABS: BASOPHILS # (AUTO) 0.1 X10'3 (0-0.2); BASOPHILS % (AUTO) 0.4 % (0-1); EOSINOPHILS # (AUTO) 0.1 X10'3 (0-0.9); EOSINOPHILS % (AUTO) 1.1 % (0-6); HEMATOCRIT 24.5 % (35.0-45.0); HEMOGLOBIN 7.6 g/dl (12.0-16.0); LYMPHOCYTES # (AUTO) 2.4 X10'3 (1.1-4.8); LYMPHOCYTES % (AUTO) 18.3 % (21-51); MEAN CORPUSCULAR HEMOGLOBIN 32.2 PG (27.0-31.0); MEAN CORPUSCULAR HGB CONC 31.1 g/dL (33.0-36.5); MEAN CORPUSCULAR VOLUME 103.8 FL (78-98); MEAN PLATELET VOLUME 9.2 FL (7.4-10.4); MONOCYTES # (AUTO) 1.1 X10'3 (0-0.9); NEUTROPHILS # (AUTO) 9.5 X10'3 (1.8-7.7); NEUTROPHILS % (AUTO) 72.2 % (42-75); PLATELET COUNT 320 X10'3 (140-440); RED BLOOD COUNT 2.36 X10'6 (4.20-5.60); WHITE BLOOD COUNT 13.2 X10'3 (4.5-11.0)
[2023-08-14] MEDS ORDERED: HYDROcodone/acetaminophen 5mg/325mg tablet PO PRN (18:35)
[2023-08-14] MEDS ORDERED: ondansetron/PF 4mg/2ml inj IV PRN (18:35)
[2023-08-14] MEDS ORDERED: potassium Cl 20 mEq SR tablet PO PRN ×2 (18:35)
[2023-08-14] MEDS ORDERED: potassium Cl 40MEQ/1/2NS 520ml 520 ML IV PRN (18:35)
[2023-08-14] MEDS ORDERED: magnesium 2GM in 50ml NS 50 ML IV PRN (18:35)
[2023-08-14] MEDS ORDERED: magnesium 4gm in 100ml NS 100 ML IV PRN (18:35)
[2023-08-14] MEDS ORDERED: acetaminophen 325mg tablet PO PRN (18:35)
[2023-08-14] MEDS: normal saline 1000ml 1,000 ML IV SCH (18:35)
[2023-08-14] MEDS ORDERED: magnesium Cl slow-release 64mg tablet PO PRN (18:35)
[2023-08-14 18:50] LABS: ALANINE AMINOTRANSFERASE 32 U/L (12-78); ALBUMIN 2.9 G/DL (3.4-5.0); ALBUMIN/GLOBULIN RATIO 0.7 (1.1-1.5); ALKALINE PHOSPHATASE 83 IU/L (46-116); ANION GAP 5 (8-16); ASPARTATE AMINO TRANSFERASE 38 U/L (10-37); BILIRUBIN,TOTAL 0.5 MG/DL (0.1-1.0); BLOOD UREA NITROGEN 18 MG/DL (7-18); BUN/CREATININE RATIO 33.3 (10.0-20.0); CALCIUM 8.6 MG/DL (8.5-10.1); CHLORIDE 112 MMOL/L (99-107); CREATININE 0.54 MG/DL (0.40-0.90); GLUCOSE 93 MG/DL (70-104); POTASSIUM 3.6 MMOL/L (3.5-5.1); SODIUM 153 MMOL/L (135-145); TOTAL CARBON DIOXIDE 36.1 MMOL/L (24-32); TOTAL PROTEIN 7.1 G/DL (6.4-8.2); eCRCL 82 ML/MIN; eGFR > 90 ML/MIN
[2023-08-14] MEDS ORDERED: LidoCAINE 2% Topical Jelly 11mL syringe TOP ONE (19:30)
[2023-08-14 19:57] LABS: THYROID STIMULATING HORMONE 1.52 ulU/ml (0.34-4.50)
[2023-08-14] MEDS: enoxaparin 40mg/0.4ml syringe SQ SCH (20:00)
[2023-08-14 21:05] LABS: INR 1.2 INR; PROTHROMBIN TIME 12.9 SECONDS (9.0-12.0)
[2023-08-14] MEDS: levetiracetam 250mg tablet PO SCH (21:07)
[2023-08-14] MEDS: phenobarbital 30mg tablet PO SCH (21:08)
[2023-08-14] MEDS: oxcarbazepine 150mg tablet PO SCH (21:09)
[2023-08-14] MEDS: busPIRone 5mg tablet PO SCH (21:10)
[2023-08-14 21:15] LABS: BILIRUBIN,URINE SMALL (Neg); CLARITY,URINE SLIGHTLY CLOUDY (Clear); COLOR,URINE YELLOW (Yellow); GLUCOSE, URINE NEGATIVE (Neg); KETONES,URINE 15 mg/dl (Neg); LEUKOCYTE ESTERASE ,URINE NEGATIVE (Neg); NITRITES, URINE POSITIVE (Neg); OCCULT BLOOD,URINE NEGATIVE (Neg); PH,URINE 5.5 (4.8-8.0); PROTEIN,URINE 30 mg/dl (Neg)
[2023-08-14 21:48] LABS: UA COLLECTION TYPE FOLEY CATH
[2023-08-14 21:50] LABS: MUCUS STRANDS MANY /LPF (Neg); RBC,URINE NONE SEEN /HPF (0-2); SQUAMOUS EPITHELIAL CELL,UR NONE SEEN /LPF (FEW); WBC,URINE 0-4 /HPF (0-4)
[2023-08-14 21:51] LABS: BACTERIA,URINE 4+ /HPF (Neg)
[2023-08-15] VITALS (16 sets, daily range): BP systolic 79–129; BP diastolic 40–70; PULSE 58–111; RESP 10–18; TEMP 96.8–97.9; O2SAT 7–100
[2023-08-15] MEDS: morphine 2 MG/ML inj. syringe IV PRN ×2 (09:12→17:31)
[2023-08-15] MEDS: levetiracetam 250mg tablet PO SCH ×2 (09:15→20:20)
[2023-08-15] MEDS: busPIRone 5mg tablet PO SCH ×2 (09:16→20:20)
[2023-08-15] MEDS: levoTHYROXINE 112mcg tablet PO SCH (09:16)
[2023-08-15] MEDS: levoFLOXACIN-Levaquin 500mg/D5 100 ML IV SCH (09:24)
[2023-08-15] MEDS: acetaminophen 325mg tablet PO PRN (09:29)
[2023-08-15] MEDS: PARoxetine 20mg tablet PO SCH (09:31)
[2023-08-15] MEDS: oxcarbazepine 150mg tablet PO SCH ×2 (10:08→20:21)
[2023-08-15 10:11] LABS: BASOPHILS % (AUTO) 0.4 % (0-1); EOSINOPHILS # (AUTO) 0.2 X10'3 (0-0.9); EOSINOPHILS % (AUTO) 1.9 % (0-6); HEMATOCRIT 27.8 % (35.0-45.0); HEMOGLOBIN 9.1 g/dl (12.0-16.0); LYMPHOCYTES # (AUTO) 1.7 X10'3 (1.1-4.8); LYMPHOCYTES % (AUTO) 16.2 % (21-51); MEAN CORPUSCULAR HEMOGLOBIN 33.2 PG (27.0-31.0); MEAN CORPUSCULAR HGB CONC 32.8 g/dL (33.0-36.5); MEAN CORPUSCULAR VOLUME 101.2 FL (78-98); MEAN PLATELET VOLUME 9.3 FL (7.4-10.4); MONOCYTES % (AUTO) 9.4 % (2-12); NEUTROPHILS # (AUTO) 7.6 X10'3 (1.8-7.7); NEUTROPHILS % (AUTO) 72.1 % (42-75); PLATELET COUNT 285 X10'3 (140-440); RED BLOOD COUNT 2.75 X10'6 (4.20-5.60); RED CELL DISTRIBUTION WIDTH 15.3 % (11.5-14.5); WHITE BLOOD COUNT 10.6 X10'3 (4.5-11.0)
[2023-08-15 10:29] LABS: ALANINE AMINOTRANSFERASE 30 U/L (12-78); ALBUMIN 2.6 G/DL (3.4-5.0); ALBUMIN/GLOBULIN RATIO 0.7 (1.1-1.5); ALKALINE PHOSPHATASE 118 IU/L (46-116); ANION GAP 8 (8-16); ASPARTATE AMINO TRANSFERASE 31 U/L (10-37); BILIRUBIN,TOTAL 0.5 MG/DL (0.1-1.0); BLOOD UREA NITROGEN 15 MG/DL (7-18); BUN/CREATININE RATIO 34.9 (10.0-20.0); CALCIUM 8.1 MG/DL (8.5-10.1); CHLORIDE 114 MMOL/L (99-107); CREATININE 0.43 MG/DL (0.40-0.90); GLUCOSE 81 MG/DL (70-104); POTASSIUM 3.3 MMOL/L (3.5-5.1); SODIUM 152 MMOL/L (135-145); TOTAL CARBON DIOXIDE 30.2 MMOL/L (24-32); TOTAL PROTEIN 6.5 G/DL (6.4-8.2); eCRCL 103 ML/MIN; eGFR > 90 ML/MIN
[2023-08-15] MEDS ORDERED: BUPIVAcaine 2.5mg/ml inj 50ml vial (contains preservative) ONE (14:24)
[2023-08-15] MEDS ORDERED: midazolam 1 mg/ML 2ml injection ONE (14:32)
[2023-08-15] MEDS ORDERED: sevoflurane 250ml liquid IH ONE (14:32)
[2023-08-15] MEDS ORDERED: fentaNYL/PF 50MCG/1 ML 2ML syringe ONE (14:32)
[2023-08-15] MEDS ORDERED: propofol inj 20 ML IV ONE (14:48)
[2023-08-15] MEDS ORDERED: ceFAZolin 1000mg inj ONE ×2 (14:48)
[2023-08-15] MEDS ORDERED: BUPIVAcaine 2.5mg/ml inj 50ml vial (contains preservative) SQ ONE (15:17)
[2023-08-15] MEDS ORDERED: proCHLORperazine 10 MG/2 ml inj IV PRN (16:15)
[2023-08-15] MEDS ORDERED: ringers solution, lacted 1,000 ML IV SCH (16:15)
[2023-08-15] MEDS ORDERED: morphine 2 MG/ML inj. syringe IV PRN (16:15)
[2023-08-15] MEDS ORDERED: morphine 4 MG/ML inj SYRINge IV PRN (16:15)
[2023-08-15] MEDS ORDERED: ondansetron/PF 4mg/2ml inj IV PRN (16:15)
[2023-08-15] MEDS ORDERED: meperidine/PF 25mg/ml syringe IV PRN ×3 (16:15)
[2023-08-15] MEDS: enoxaparin 40mg/0.4ml syringe SQ SCH (19:54)
[2023-08-15] MEDS: phenobarbital 30mg tablet PO SCH (20:22)
[2023-08-15] MEDS: normal saline 1000ml 1,000 ML IV SCH (20:39)
[2023-08-15] MEDS: HYDROcodone/acetaminophen 10/325mg tab PO PRN (23:17)
[2023-08-16] VITALS (7 sets, daily range): BP systolic 91–116; BP diastolic 46–63; PULSE 85–101; RESP 18–22; TEMP 97.8–99.7; O2SAT 94–99
[2023-08-16] MEDS: morphine 2 MG/ML inj. syringe IV PRN ×3 (01:28→18:18)
[2023-08-16] MEDS: HYDROcodone/acetaminophen 10/325mg tab PO PRN ×2 (06:06→12:51)
[2023-08-16 07:01] LABS: BASOPHILS % (AUTO) 0.1 % (0-1); EOSINOPHILS # (AUTO) 0.1 X10'3 (0-0.9); HEMATOCRIT 24.4 % (35.0-45.0); LYMPHOCYTES # (AUTO) 1.2 X10'3 (1.1-4.8); LYMPHOCYTES % (AUTO) 16.4 % (21-51); MEAN CORPUSCULAR HEMOGLOBIN 33.5 PG (27.0-31.0); MEAN CORPUSCULAR HGB CONC 32.9 g/dL (33.0-36.5); MEAN CORPUSCULAR VOLUME 101.7 FL (78-98); MEAN PLATELET VOLUME 9.1 FL (7.4-10.4); MONOCYTES # (AUTO) 0.6 X10'3 (0-0.9); MONOCYTES % (AUTO) 8.7 % (2-12); NEUTROPHILS # (AUTO) 5.4 X10'3 (1.8-7.7); NEUTROPHILS % (AUTO) 73.8 % (42-75); PLATELET COUNT 269 X10'3 (140-440); RED CELL DISTRIBUTION WIDTH 15.4 % (11.5-14.5); WHITE BLOOD COUNT 7.3 X10'3 (4.5-11.0)
[2023-08-16 07:33] LABS: ALANINE AMINOTRANSFERASE 27 U/L (12-78); ALBUMIN 2.3 G/DL (3.4-5.0); ALBUMIN/GLOBULIN RATIO 0.6 (1.1-1.5); ALKALINE PHOSPHATASE 81 IU/L (46-116); ANION GAP 6 (8-16); ASPARTATE AMINO TRANSFERASE 39 U/L (10-37); BILIRUBIN,TOTAL 0.4 MG/DL (0.1-1.0); BLOOD UREA NITROGEN 8 MG/DL (7-18); BUN/CREATININE RATIO 19.5 (10.0-20.0); CALCIUM 8.1 MG/DL (8.5-10.1); CHLORIDE 109 MMOL/L (99-107); CREATININE 0.41 MG/DL (0.40-0.90); GLUCOSE 115 MG/DL (70-104); POTASSIUM 3.8 MMOL/L (3.5-5.1); SODIUM 146 MMOL/L (135-145); TOTAL CARBON DIOXIDE 30.7 MMOL/L (24-32); eCRCL 108 ML/MIN; eGFR > 90 ML/MIN
[2023-08-16] MEDS: levoFLOXACIN-Levaquin 500mg/D5 100 ML IV SCH (09:04)
[2023-08-16] MEDS: busPIRone 5mg tablet PO SCH ×2 (09:07→19:43)
[2023-08-16] MEDS: levoTHYROXINE 112mcg tablet PO SCH (09:08)
[2023-08-16] MEDS: oxcarbazepine 150mg tablet PO SCH ×2 (09:09→19:44)
[2023-08-16] MEDS: PARoxetine 20mg tablet PO SCH (09:10)
[2023-08-16] MEDS: levetiracetam 250mg tablet PO SCH ×2 (10:21→19:43)
[2023-08-16] MEDS: NUT.TX.IMPAIRED DIGEST FXN (Ensure Clear) 237 ML PO SCH (19:42)
[2023-08-16] MEDS: enoxaparin 40mg/0.4ml syringe SQ SCH (19:53)
[2023-08-16] MEDS: phenobarbital 30mg tablet PO SCH (21:41)
[2023-08-17 06:36] VITALS: BP 145/76; PULSE 88; RESP 18; TEMP 98.7; O2SAT 96
[2023-08-17 07:02] LABS: BASOPHILS % (AUTO) 0.2 % (0-1); EOSINOPHILS # (AUTO) 0.1 X10'3 (0-0.9); EOSINOPHILS % (AUTO) 0.9 % (0-6); HEMOGLOBIN 8.5 g/dl (12.0-16.0); LYMPHOCYTES # (AUTO) 1.3 X10'3 (1.1-4.8); LYMPHOCYTES % (AUTO) 13.7 % (21-51); MEAN CORPUSCULAR HEMOGLOBIN 33.3 PG (27.0-31.0); MEAN CORPUSCULAR HGB CONC 32.7 g/dL (33.0-36.5); MEAN CORPUSCULAR VOLUME 101.8 FL (78-98); MEAN PLATELET VOLUME 9.1 FL (7.4-10.4); MONOCYTES # (AUTO) 0.9 X10'3 (0-0.9); MONOCYTES % (AUTO) 8.9 % (2-12); NEUTROPHILS # (AUTO) 7.4 X10'3 (1.8-7.7); NEUTROPHILS % (AUTO) 76.3 % (42-75); PLATELET COUNT 261 X10'3 (140-440); RED BLOOD COUNT 2.55 X10'6 (4.20-5.60); RED CELL DISTRIBUTION WIDTH 16.5 % (11.5-14.5); WHITE BLOOD COUNT 9.7 X10'3 (4.5-11.0)
[2023-08-17 07:24] LABS: ALANINE AMINOTRANSFERASE 30 U/L (12-78); ALBUMIN 2.2 G/DL (3.4-5.0); ALBUMIN/GLOBULIN RATIO 0.6 (1.1-1.5); ALKALINE PHOSPHATASE 82 IU/L (46-116); ANION GAP 8 (8-16); ASPARTATE AMINO TRANSFERASE 46 U/L (10-37); BILIRUBIN,TOTAL 0.4 MG/DL (0.1-1.0); BLOOD UREA NITROGEN 8 MG/DL (7-18); BUN/CREATININE RATIO 18.2 (10.0-20.0); CALCIUM 7.8 MG/DL (8.5-10.1); CHLORIDE 109 MMOL/L (99-107); CREATININE 0.44 MG/DL (0.40-0.90); GLUCOSE 110 MG/DL (70-104); POTASSIUM 3.8 MMOL/L (3.5-5.1); SODIUM 143 MMOL/L (135-145); TOTAL CARBON DIOXIDE 25.9 MMOL/L (24-32); eCRCL 100 ML/MIN; eGFR > 90 ML/MIN
[2023-08-17] MEDS: levoFLOXACIN-Levaquin 500mg/D5 100 ML IV SCH (07:24)
[2023-08-17] MEDS: NUT.TX.IMPAIRED DIGEST FXN (Ensure Clear) 237 ML PO SCH ×2 (08:30→20:00)
[2023-08-17 08:38] VITALS: RESP 18; O2SAT 97
[2023-08-17] MEDS: busPIRone 5mg tablet PO SCH ×2 (08:38→21:17)
[2023-08-17] MEDS: levoTHYROXINE 112mcg tablet PO SCH (08:44)
[2023-08-17] MEDS: oxcarbazepine 150mg tablet PO SCH ×2 (08:45→21:22)
[2023-08-17] MEDS: PARoxetine 20mg tablet PO SCH (08:45)
[2023-08-17] MEDS: levetiracetam 250mg tablet PO SCH ×2 (08:50→21:19)
[2023-08-17 10:00] VITALS: BP 114/48; PULSE 89; RESP 14; TEMP 98.4; O2SAT 94
[2023-08-17 18:00] VITALS: BP 97/47; PULSE 83; RESP 16; TEMP 98.3; O2SAT 97
[2023-08-17 20:00] VITALS: RESP 18; O2SAT 97
[2023-08-17] MEDS: enoxaparin 40mg/0.4ml syringe SQ SCH (20:00)
[2023-08-17] MEDS: phenobarbital 30mg tablet PO SCH (21:21)
[2023-08-17 21:30] VITALS: BP 119/62; PULSE 81; RESP 16; TEMP 99.3; O2SAT 98
[2023-08-18] VITALS (7 sets, daily range): BP systolic 108–129; BP diastolic 47–61; PULSE 66–78; RESP 14–20; TEMP 97–98.9; O2SAT 93–97
[2023-08-18 07:52] LABS: BASOPHILS % (AUTO) 0.2 % (0-1); EOSINOPHILS # (AUTO) 0.2 X10'3 (0-0.9); EOSINOPHILS % (AUTO) 2.7 % (0-6); HEMATOCRIT 23.2 % (35.0-45.0); HEMOGLOBIN 7.7 g/dl (12.0-16.0); LYMPHOCYTES # (AUTO) 1.2 X10'3 (1.1-4.8); LYMPHOCYTES % (AUTO) 15.6 % (21-51); MEAN CORPUSCULAR HEMOGLOBIN 33.7 PG (27.0-31.0); MEAN CORPUSCULAR HGB CONC 33.1 g/dL (33.0-36.5); MEAN CORPUSCULAR VOLUME 101.8 FL (78-98); MONOCYTES # (AUTO) 0.6 X10'3 (0-0.9); MONOCYTES % (AUTO) 8.3 % (2-12); NEUTROPHILS # (AUTO) 5.5 X10'3 (1.8-7.7); NEUTROPHILS % (AUTO) 73.2 % (42-75); PLATELET COUNT 246 X10'3 (140-440); RED BLOOD COUNT 2.28 X10'6 (4.20-5.60); RED CELL DISTRIBUTION WIDTH 17.1 % (11.5-14.5); WHITE BLOOD COUNT 7.6 X10'3 (4.5-11.0)
[2023-08-18] MEDS ORDERED: ferrous sulfate ER tablet 140 MG TABLET.ER PO SCH (08:00)
[2023-08-18] MEDS: NUT.TX.IMPAIRED DIGEST FXN (Ensure Clear) 237 ML PO SCH ×2 (08:00→20:00)
[2023-08-18 08:10] LABS: ALANINE AMINOTRANSFERASE 29 U/L (12-78); ALBUMIN 1.9 G/DL (3.4-5.0); ALBUMIN/GLOBULIN RATIO 0.5 (1.1-1.5); ALKALINE PHOSPHATASE 100 IU/L (46-116); ANION GAP 4 (8-16); ASPARTATE AMINO TRANSFERASE 40 U/L (10-37); BILIRUBIN,TOTAL 0.4 MG/DL (0.1-1.0); BLOOD UREA NITROGEN 11 MG/DL (7-18); BUN/CREATININE RATIO 26.8 (10.0-20.0); CALCIUM 8.1 MG/DL (8.5-10.1); CHLORIDE 111 MMOL/L (99-107); CREATININE 0.41 MG/DL (0.40-0.90); GLUCOSE 99 MG/DL (70-104); POTASSIUM 3.5 MMOL/L (3.5-5.1); SODIUM 146 MMOL/L (135-145); TOTAL CARBON DIOXIDE 30.6 MMOL/L (24-32); TOTAL PROTEIN 5.9 G/DL (6.4-8.2); eCRCL 108 ML/MIN; eGFR > 90 ML/MIN
[2023-08-18] MEDS: busPIRone 5mg tablet PO SCH ×2 (08:24→20:11)
[2023-08-18] MEDS: levoTHYROXINE 112mcg tablet PO SCH (08:25)
[2023-08-18] MEDS: PARoxetine 20mg tablet PO SCH (08:25)
[2023-08-18] MEDS: oxcarbazepine 150mg tablet PO SCH ×2 (08:25→20:17)
[2023-08-18] MEDS: levetiracetam 250mg tablet PO SCH ×2 (08:25→20:12)
[2023-08-18] MEDS: FERROUS SULFATE 142 MG TABLET.ER (45mg elemental) PO SCH (09:25)
[2023-08-18] MEDS: levoFLOXACIN 500mg tablet PO SCH (11:20)
[2023-08-18] MEDS: normal saline 1000ml 1,000 ML IV SCH (18:35)
[2023-08-18] MEDS ORDERED: heparin, porcine 5000 units/ml vial SQ SCH (20:00)
[2023-08-18] MEDS: phenobarbital 30mg tablet PO SCH (20:15)
[2023-08-18] MEDS: enoxaparin 40mg/0.4ml syringe SQ SCH (20:17)
[2023-08-18] MEDS: HYDROcodone/acetaminophen 10/325mg tab PO PRN (21:25)
[2023-08-19 04:14] VITALS: O2SAT 93
[2023-08-19 06:30] VITALS: BP 107/52; PULSE 68; RESP 14; TEMP 97.6; O2SAT 96
[2023-08-19 07:02] LABS: BASOPHILS % (AUTO) 0.6 % (0-1); EOSINOPHILS # (AUTO) 0.2 X10'3 (0-0.9); EOSINOPHILS % (AUTO) 3.2 % (0-6); HEMATOCRIT 25.2 % (35.0-45.0); HEMOGLOBIN 8.2 g/dl (12.0-16.0); LYMPHOCYTES # (AUTO) 1.4 X10'3 (1.1-4.8); LYMPHOCYTES % (AUTO) 23.2 % (21-51); MEAN CORPUSCULAR HEMOGLOBIN 33.3 PG (27.0-31.0); MEAN CORPUSCULAR HGB CONC 32.8 g/dL (33.0-36.5); MEAN CORPUSCULAR VOLUME 101.6 FL (78-98); MEAN PLATELET VOLUME 9.5 FL (7.4-10.4); MONOCYTES # (AUTO) 0.6 X10'3 (0-0.9); MONOCYTES % (AUTO) 9.5 % (2-12); NEUTROPHILS # (AUTO) 3.8 X10'3 (1.8-7.7); NEUTROPHILS % (AUTO) 63.5 % (42-75); PLATELET COUNT 280 X10'3 (140-440); RED BLOOD COUNT 2.48 X10'6 (4.20-5.60); RED CELL DISTRIBUTION WIDTH 17.3 % (11.5-14.5)
[2023-08-19 07:09] LABS: ALANINE AMINOTRANSFERASE 30 U/L (12-78); ALBUMIN 1.9 G/DL (3.4-5.0); ALBUMIN/GLOBULIN RATIO 0.5 (1.1-1.5); ALKALINE PHOSPHATASE 108 IU/L (46-116); ANION GAP 5 (8-16); ASPARTATE AMINO TRANSFERASE 43 U/L (10-37); BILIRUBIN,TOTAL 0.4 MG/DL (0.1-1.0); BLOOD UREA NITROGEN 6 MG/DL (7-18); CALCIUM 8.2 MG/DL (8.5-10.1); CHLORIDE 108 MMOL/L (99-107); GLUCOSE 81 MG/DL (70-104); POTASSIUM 3.8 MMOL/L (3.5-5.1); SODIUM 144 MMOL/L (135-145); TOTAL CARBON DIOXIDE 31.1 MMOL/L (24-32); eCRCL 110 ML/MIN; eGFR > 90 ML/MIN
[2023-08-19] MEDS: busPIRone 5mg tablet PO SCH ×2 (07:47→21:00)
[2023-08-19] MEDS: levoTHYROXINE 112mcg tablet PO SCH (07:47)
[2023-08-19] MEDS: levetiracetam 250mg tablet PO SCH ×2 (07:47→20:57)
[2023-08-19] MEDS: FERROUS SULFATE 142 MG TABLET.ER (45mg elemental) PO SCH (07:47)
[2023-08-19] MEDS: PARoxetine 20mg tablet PO SCH (07:48)
[2023-08-19] MEDS: oxcarbazepine 150mg tablet PO SCH ×2 (07:48→21:00)
[2023-08-19] MEDS: NUT.TX.IMPAIRED DIGEST FXN (Ensure Clear) 237 ML PO SCH ×2 (08:00→20:00)
[2023-08-19 11:00] VITALS: BP 96/52; PULSE 63; RESP 14; TEMP 97.4; O2SAT 95
[2023-08-19] MEDS: levoFLOXACIN 500mg tablet PO SCH (11:47)
[2023-08-19 18:00] VITALS: BP 116/61; PULSE 75; RESP 15; TEMP 98.4; O2SAT 95
[2023-08-19] MEDS: HYDROcodone/acetaminophen 10/325mg tab PO PRN (20:57)
[2023-08-19] MEDS: enoxaparin 40mg/0.4ml syringe SQ SCH (20:58)
[2023-08-19] MEDS: phenobarbital 30mg tablet PO SCH (20:59)
[2023-08-19 22:00] VITALS: BP 108/46; PULSE 73; RESP 14; TEMP 98.7; O2SAT 92
[2023-08-20 06:00] VITALS: BP 109/59; PULSE 72; RESP 16; TEMP 97.9; O2SAT 95
[2023-08-20] MEDS: NUT.TX.IMPAIRED DIGEST FXN (Ensure Clear) 237 ML PO SCH ×2 (08:00→20:00)
[2023-08-20] MEDS: FERROUS SULFATE 142 MG TABLET.ER (45mg elemental) PO SCH (08:19)
[2023-08-20] MEDS: busPIRone 5mg tablet PO SCH ×2 (08:19→20:48)
[2023-08-20] MEDS: oxcarbazepine 150mg tablet PO SCH ×2 (08:19→20:48)
[2023-08-20] MEDS: levoTHYROXINE 112mcg tablet PO SCH (08:19)
[2023-08-20] MEDS: levetiracetam 250mg tablet PO SCH ×2 (08:19→20:52)
[2023-08-20] MEDS: PARoxetine 20mg tablet PO SCH (08:19)
[2023-08-20] MEDS ORDERED: polyethylene glycol 3350 17gm powd pack PO PRN (10:40)
[2023-08-20 11:30] VITALS: BP 102/57; PULSE 74; RESP 14; TEMP 98; O2SAT 92
[2023-08-20] MEDS: levoFLOXACIN 500mg tablet PO SCH (12:54)
[2023-08-20 18:30] VITALS: BP 133/69; PULSE 77; RESP 18; TEMP 97.6; O2SAT 91
[2023-08-20 19:15] VITALS: RESP 18; O2SAT 91
[2023-08-20] MEDS: phenobarbital 30mg tablet PO SCH (20:47)
[2023-08-20] MEDS: enoxaparin 40mg/0.4ml syringe SQ SCH (20:48)
[2023-08-20 22:00] VITALS: BP 120/49; PULSE 73; RESP 19; TEMP 97.3; O2SAT 94
[2023-08-20] MEDS: acetaminophen 325mg tablet PO PRN (22:11)
[2023-08-21 06:00] VITALS: BP 106/57; PULSE 71; RESP 16; TEMP 97.4; O2SAT 96
[2023-08-21] MEDS: busPIRone 5mg tablet PO SCH ×2 (07:30→20:30)
[2023-08-21] MEDS: PARoxetine 20mg tablet PO SCH (07:30)
[2023-08-21] MEDS: FERROUS SULFATE 142 MG TABLET.ER (45mg elemental) PO SCH (07:30)
[2023-08-21] MEDS: levoTHYROXINE 112mcg tablet PO SCH (07:30)
[2023-08-21] MEDS: oxcarbazepine 150mg tablet PO SCH ×2 (07:30→20:29)
[2023-08-21] MEDS: levetiracetam 250mg tablet PO SCH ×2 (07:30→20:29)
[2023-08-21] MEDS: NUT.TX.IMPAIRED DIGEST FXN (Ensure Clear) 237 ML PO SCH ×2 (08:00→20:00)
[2023-08-21 08:21] LABS: BASOPHILS % (AUTO) 0.6 % (0-1); EOSINOPHILS # (AUTO) 0.1 X10'3 (0-0.9); HEMATOCRIT 28.1 % (35.0-45.0); HEMOGLOBIN 9.1 g/dl (12.0-16.0); LYMPHOCYTES # (AUTO) 1.4 X10'3 (1.1-4.8); LYMPHOCYTES % (AUTO) 28.6 % (21-51); MEAN CORPUSCULAR HEMOGLOBIN 33.3 PG (27.0-31.0); MEAN CORPUSCULAR HGB CONC 32.4 g/dL (33.0-36.5); MEAN CORPUSCULAR VOLUME 102.7 FL (78-98); MEAN PLATELET VOLUME 9.7 FL (7.4-10.4); MONOCYTES # (AUTO) 0.6 X10'3 (0-0.9); MONOCYTES % (AUTO) 11.4 % (2-12); NEUTROPHILS # (AUTO) 2.8 X10'3 (1.8-7.7); NEUTROPHILS % (AUTO) 57.4 % (42-75); PLATELET COUNT 374 X10'3 (140-440); RED BLOOD COUNT 2.74 X10'6 (4.20-5.60); RED CELL DISTRIBUTION WIDTH 16.6 % (11.5-14.5)
[2023-08-21 10:18] LABS: ALANINE AMINOTRANSFERASE 32 U/L (12-78); ALBUMIN/GLOBULIN RATIO 0.4 (1.1-1.5); ALKALINE PHOSPHATASE 170 IU/L (46-116); ANION GAP 6 (8-16); ASPARTATE AMINO TRANSFERASE 31 U/L (10-37); BILIRUBIN,TOTAL 0.2 MG/DL (0.1-1.0); BLOOD UREA NITROGEN 10 MG/DL (7-18); BUN/CREATININE RATIO 20.4 (10.0-20.0); CALCIUM 8.5 MG/DL (8.5-10.1); CHLORIDE 108 MMOL/L (99-107); CREATININE 0.49 MG/DL (0.40-0.90); GLUCOSE 86 MG/DL (70-104); POTASSIUM 4.7 MMOL/L (3.5-5.1); SODIUM 144 MMOL/L (135-145); TOTAL CARBON DIOXIDE 30.4 MMOL/L (24-32); TOTAL PROTEIN 6.5 G/DL (6.4-8.2); eCRCL 90 ML/MIN; eGFR > 90 ML/MIN
[2023-08-21 11:00] VITALS: BP 108/59; PULSE 71; RESP 16; TEMP 98.1; O2SAT 95
[2023-08-21] MEDS: levoFLOXACIN 500mg tablet PO SCH (13:57)
[2023-08-21] MEDS: acetaminophen 325mg tablet PO PRN ×2 (13:58→20:35)
[2023-08-21 18:00] VITALS: BP 101/51; PULSE 71; RESP 18; TEMP 97.5; O2SAT 95
[2023-08-21] MEDS: phenobarbital 30mg tablet PO SCH (20:29)
[2023-08-21] MEDS: enoxaparin 40mg/0.4ml syringe SQ SCH (20:29)
[2023-08-21 22:00] VITALS: BP 131/78; PULSE 91; RESP 16; TEMP 98.1; O2SAT 94
[2023-08-22] MEDS ORDERED: diazepam inj 5 MG/ML inj. IV PRN (05:35)
[2023-08-22] MEDS: acetaminophen 325mg tablet PO PRN (05:57)
[2023-08-22 07:25] VITALS: BP 101/52; PULSE 74; RESP 18; TEMP 98.5; O2SAT 97
[2023-08-22 07:40] LABS: BASOPHILS % (AUTO) 0.3 % (0-1); EOSINOPHILS # (AUTO) 0.1 X10'3 (0-0.9); EOSINOPHILS % (AUTO) 0.7 % (0-6); HEMATOCRIT 28.5 % (35.0-45.0); HEMOGLOBIN 9.2 g/dl (12.0-16.0); LYMPHOCYTES % (AUTO) 13.9 % (21-51); MEAN CORPUSCULAR HEMOGLOBIN 33.2 PG (27.0-31.0); MEAN CORPUSCULAR HGB CONC 32.2 g/dL (33.0-36.5); MEAN PLATELET VOLUME 9.1 FL (7.4-10.4); MONOCYTES # (AUTO) 0.6 X10'3 (0-0.9); MONOCYTES % (AUTO) 9.2 % (2-12); NEUTROPHILS # (AUTO) 5.2 X10'3 (1.8-7.7); NEUTROPHILS % (AUTO) 75.9 % (42-75); PLATELET COUNT 370 X10'3 (140-440); RED BLOOD COUNT 2.77 X10'6 (4.20-5.60); WHITE BLOOD COUNT 6.9 X10'3 (4.5-11.0)
[2023-08-22 07:57] LABS: ALANINE AMINOTRANSFERASE 28 U/L (12-78); ALBUMIN 2.1 G/DL (3.4-5.0); ALBUMIN/GLOBULIN RATIO 0.5 (1.1-1.5); ALKALINE PHOSPHATASE 197 IU/L (46-116); ANION GAP 5 (8-16); ASPARTATE AMINO TRANSFERASE 34 U/L (10-37); BILIRUBIN,TOTAL 0.3 MG/DL (0.1-1.0); BLOOD UREA NITROGEN 11 MG/DL (7-18); BUN/CREATININE RATIO 23.4 (10.0-20.0); CALCIUM 8.2 MG/DL (8.5-10.1); CHLORIDE 104 MMOL/L (99-107); CREATININE 0.47 MG/DL (0.40-0.90); GLUCOSE 111 MG/DL (70-104); SODIUM 139 MMOL/L (135-145); TOTAL PROTEIN 6.7 G/DL (6.4-8.2); eCRCL 94 ML/MIN; eGFR > 90 ML/MIN
[2023-08-22 08:00] VITALS: RESP 19; O2SAT 94
[2023-08-22] MEDS: NUT.TX.IMPAIRED DIGEST FXN (Ensure Clear) 237 ML PO SCH ×2 (08:00→20:00)
[2023-08-22] MEDS: levoTHYROXINE 112mcg tablet PO SCH (08:00)
[2023-08-22] MEDS: PARoxetine 20mg tablet PO SCH (08:00)
[2023-08-22] MEDS: FERROUS SULFATE 142 MG TABLET.ER (45mg elemental) PO SCH (08:00)
[2023-08-22] MEDS: busPIRone 5mg tablet PO SCH ×2 (08:00→19:22)
[2023-08-22] MEDS: oxcarbazepine 150mg tablet PO SCH ×2 (08:00→19:22)
[2023-08-22] MEDS ORDERED: levetiracetam inj 1,500 MG in normal saline 100ml IV soln 85 ML IV SCH (09:45)
[2023-08-22] MEDS: levetiracetam inj 1,500 MG in normal saline 100ml IV soln 100 ML IV SCH ×2 (10:32→19:22)
[2023-08-22] MEDS ORDERED: levetiracetam inj 1,500 MG in normal saline 100ml IV soln 100 ML IV ONE (10:40)
[2023-08-22 11:00] VITALS: BP 112/48; PULSE 75; RESP 22; TEMP 97.5; O2SAT 100
[2023-08-22] MEDS: levoFLOXACIN 500mg tablet PO SCH (11:00)
[2023-08-22 18:00] VITALS: BP 98/43; PULSE 78; RESP 20; TEMP 97.9; O2SAT 100
[2023-08-22] MEDS: enoxaparin 40mg/0.4ml syringe SQ SCH (19:23)
[2023-08-22] MEDS: HYDROcodone/acetaminophen 10/325mg tab PO PRN (19:24)
[2023-08-22 20:00] VITALS: RESP 20; O2SAT 95
[2023-08-22] MEDS: phenobarbital 30mg tablet PO SCH (21:02)
[2023-08-22 22:00] VITALS: BP 81/47; PULSE 70; RESP 20; TEMP 97.5; O2SAT 95
[2023-08-23 06:00] VITALS: BP 99/45; PULSE 70; RESP 16; TEMP 98.1; O2SAT 96
[2023-08-23 06:30] LABS: BASOPHILS % (AUTO) 0.6 % (0-1); EOSINOPHILS # (AUTO) 0.1 X10'3 (0-0.9); EOSINOPHILS % (AUTO) 1.5 % (0-6); HEMATOCRIT 28.7 % (35.0-45.0); HEMOGLOBIN 9.2 g/dl (12.0-16.0); LYMPHOCYTES # (AUTO) 1.7 X10'3 (1.1-4.8); LYMPHOCYTES % (AUTO) 23.8 % (21-51); MEAN CORPUSCULAR HEMOGLOBIN 33.2 PG (27.0-31.0); MEAN CORPUSCULAR HGB CONC 31.9 g/dL (33.0-36.5); MEAN CORPUSCULAR VOLUME 104.1 FL (78-98); MEAN PLATELET VOLUME 8.9 FL (7.4-10.4); MONOCYTES # (AUTO) 0.7 X10'3 (0-0.9); MONOCYTES % (AUTO) 9.6 % (2-12); NEUTROPHILS # (AUTO) 4.5 X10'3 (1.8-7.7); NEUTROPHILS % (AUTO) 64.5 % (42-75); PLATELET COUNT 417 X10'3 (140-440); RED BLOOD COUNT 2.76 X10'6 (4.20-5.60); RED CELL DISTRIBUTION WIDTH 17.6 % (11.5-14.5)
[2023-08-23 07:05] LABS: ALANINE AMINOTRANSFERASE 29 U/L (12-78); ALBUMIN 2.1 G/DL (3.4-5.0); ALBUMIN/GLOBULIN RATIO 0.5 (1.1-1.5); ALKALINE PHOSPHATASE 226 IU/L (46-116); ANION GAP 7 (8-16); ASPARTATE AMINO TRANSFERASE 28 U/L (10-37); BILIRUBIN,TOTAL 0.3 MG/DL (0.1-1.0); BLOOD UREA NITROGEN 14 MG/DL (7-18); BUN/CREATININE RATIO 31.1 (10.0-20.0); CALCIUM 8.2 MG/DL (8.5-10.1); CHLORIDE 105 MMOL/L (99-107); CREATININE 0.45 MG/DL (0.40-0.90); GLUCOSE 83 MG/DL (70-104); POTASSIUM 4.1 MMOL/L (3.5-5.1); SODIUM 142 MMOL/L (135-145); TOTAL CARBON DIOXIDE 29.8 MMOL/L (24-32); TOTAL PROTEIN 6.3 G/DL (6.4-8.2); eCRCL 98 ML/MIN; eGFR > 90 ML/MIN
[2023-08-23] MEDS: levoTHYROXINE 112mcg tablet PO SCH (08:14)
[2023-08-23] MEDS: FERROUS SULFATE 142 MG TABLET.ER (45mg elemental) PO SCH (08:14)
[2023-08-23] MEDS: oxcarbazepine 150mg tablet PO SCH ×2 (08:14→21:46)
[2023-08-23] MEDS: busPIRone 5mg tablet PO SCH ×2 (08:14→21:44)
[2023-08-23] MEDS: PARoxetine 20mg tablet PO SCH (08:14)
[2023-08-23] MEDS: NUT.TX.IMPAIRED DIGEST FXN (Ensure Clear) 237 ML PO SCH ×2 (08:15→20:00)
[2023-08-23] MEDS: levetiracetam inj 1,500 MG in normal saline 100ml IV soln 100 ML IV SCH ×2 (08:15→21:39)
[2023-08-23 10:00] VITALS: BP 107/55; PULSE 76; RESP 16; TEMP 98.6; O2SAT 96
[2023-08-23 10:30] VITALS: RESP 18; O2SAT 96
[2023-08-23] MEDS: levoFLOXACIN 500mg tablet PO SCH (11:40)
[2023-08-23] MEDS: morphine 2 MG/ML inj. syringe IV PRN ×2 (11:56→21:36)
[2023-08-23] MEDS: HYDROcodone/acetaminophen 10/325mg tab PO PRN (16:28)
[2023-08-23 18:00] VITALS: BP 110/61; PULSE 91; RESP 18; TEMP 98.1; O2SAT 93
[2023-08-23 20:00] VITALS: RESP 18; O2SAT 93
[2023-08-23] MEDS: phenobarbital 30mg tablet PO SCH (21:42)
[2023-08-23] MEDS: enoxaparin 40mg/0.4ml syringe SQ SCH (21:47)
[2023-08-23 22:00] VITALS: BP 110/58; PULSE 99; RESP 16; TEMP 98.7; O2SAT 96
[2023-08-24 06:00] VITALS: BP 102/45; PULSE 71; RESP 16; TEMP 97.6; O2SAT 91
[2023-08-24] MEDS: levetiracetam inj 1,500 MG in normal saline 100ml IV soln 100 ML IV SCH ×2 (07:22→19:34)
[2023-08-24] MEDS: morphine 2 MG/ML inj. syringe IV PRN ×2 (07:23→18:00)
[2023-08-24] MEDS: FERROUS SULFATE 142 MG TABLET.ER (45mg elemental) PO SCH ×2 (07:23→07:28)
[2023-08-24] MEDS: levoTHYROXINE 112mcg tablet PO SCH ×2 (07:23→07:29)
[2023-08-24] MEDS: oxcarbazepine 150mg tablet PO SCH ×3 (07:23→19:35)
[2023-08-24] MEDS: PARoxetine 20mg tablet PO SCH ×2 (07:23→07:28)
[2023-08-24] MEDS: busPIRone 5mg tablet PO SCH ×3 (07:23→19:34)
[2023-08-24] MEDS: NUT.TX.IMPAIRED DIGEST FXN (Ensure Clear) 237 ML PO SCH ×2 (08:14→20:00)
[2023-08-24 09:58] VITALS: RESP 18; O2SAT 95
[2023-08-24 10:00] VITALS: BP 98/44; PULSE 86; RESP 16; TEMP 97.8; O2SAT 94
[2023-08-24 18:00] VITALS: BP 102/47; PULSE 77; RESP 18; TEMP 96.4; O2SAT 96
[2023-08-24 19:30] VITALS: RESP 18; O2SAT 93
[2023-08-24] MEDS: HYDROcodone/acetaminophen 10/325mg tab PO PRN (19:36)
[2023-08-24] MEDS: enoxaparin 40mg/0.4ml syringe SQ SCH (19:51)
[2023-08-24] MEDS ORDERED: bisacodyl 10mg suppository rectal RC PRN (20:00)
[2023-08-24] MEDS ORDERED: normal saline 1000ml 1,000 ML IV ONE (20:00)
[2023-08-24] MEDS: diazepam inj 5 MG/ML inj. IV PRN ×2 (20:16→22:07)
[2023-08-24] MEDS ORDERED: NORMAL SALINE IV SCH (21:00)
[2023-08-24] MEDS ORDERED: PHENOBARBITAL IV SCH (21:00)
[2023-08-24 22:00] VITALS: BP 125/59; PULSE 80; RESP 22; TEMP 97.6; O2SAT 99
[2023-08-25 06:00] VITALS: BP 136/72; PULSE 82; RESP 16; TEMP 97.2; O2SAT 97
[2023-08-25 07:22] LABS: BASOPHILS # (AUTO) 0.1 X10'3 (0-0.2); BASOPHILS % (AUTO) 0.9 % (0-1); EOSINOPHILS # (AUTO) 0.1 X10'3 (0-0.9); EOSINOPHILS % (AUTO) 1.3 % (0-6); HEMATOCRIT 29.9 % (35.0-45.0); HEMOGLOBIN 9.3 g/dl (12.0-16.0); LYMPHOCYTES # (AUTO) 1.5 X10'3 (1.1-4.8); LYMPHOCYTES % (AUTO) 21.8 % (21-51); MEAN CORPUSCULAR HEMOGLOBIN 33.6 PG (27.0-31.0); MEAN CORPUSCULAR HGB CONC 31.1 g/dL (33.0-36.5); MEAN CORPUSCULAR VOLUME 107.8 FL (78-98); MEAN PLATELET VOLUME 9.4 FL (7.4-10.4); MONOCYTES # (AUTO) 0.6 X10'3 (0-0.9); MONOCYTES % (AUTO) 8.8 % (2-12); NEUTROPHILS # (AUTO) 4.5 X10'3 (1.8-7.7); NEUTROPHILS % (AUTO) 67.2 % (42-75); PLATELET COUNT 440 X10'3 (140-440); RED BLOOD COUNT 2.78 X10'6 (4.20-5.60); RED CELL DISTRIBUTION WIDTH 18.7 % (11.5-14.5); WHITE BLOOD COUNT 6.7 X10'3 (4.5-11.0)
[2023-08-25] MEDS: levoTHYROXINE 112mcg tablet PO SCH (08:32)
[2023-08-25] MEDS: busPIRone 5mg tablet PO SCH ×2 (08:32→21:25)
[2023-08-25] MEDS: PARoxetine 20mg tablet PO SCH (08:32)
[2023-08-25] MEDS: levetiracetam inj 1,500 MG in normal saline 100ml IV soln 100 ML IV SCH ×2 (08:32→21:28)
[2023-08-25] MEDS: oxcarbazepine 150mg tablet PO SCH ×2 (08:33→21:28)
[2023-08-25] MEDS: FERROUS SULFATE 142 MG TABLET.ER (45mg elemental) PO SCH (08:33)
[2023-08-25] MEDS: NUT.TX.IMPAIRED DIGEST FXN (Ensure Clear) 237 ML PO SCH ×2 (08:40→20:00)
[2023-08-25 10:00] VITALS: BP 90/58; PULSE 73; RESP 17; TEMP 97.7; O2SAT 96
[2023-08-25 10:23] VITALS: RESP 20; O2SAT 96
[2023-08-25 12:56] LABS: ALANINE AMINOTRANSFERASE 25 U/L (12-78); ALBUMIN 2.2 G/DL (3.4-5.0); ALBUMIN/GLOBULIN RATIO 0.5 (1.1-1.5); ALKALINE PHOSPHATASE 297 IU/L (46-116); ANION GAP 7 (8-16); ASPARTATE AMINO TRANSFERASE 27 U/L (10-37); BILIRUBIN,TOTAL 0.3 MG/DL (0.1-1.0); BLOOD UREA NITROGEN 11 MG/DL (7-18); BUN/CREATININE RATIO 30.6 (10.0-20.0); CALCIUM 8.3 MG/DL (8.5-10.1); CHLORIDE 110 MMOL/L (99-107); CREATININE 0.36 MG/DL (0.40-0.90); GLUCOSE 91 MG/DL (70-104); POTASSIUM 4.2 MMOL/L (3.5-5.1); SODIUM 146 MMOL/L (135-145); TOTAL CARBON DIOXIDE 28.6 MMOL/L (24-32); TOTAL PROTEIN 6.7 G/DL (6.4-8.2); eCRCL 123 ML/MIN; eGFR > 90 ML/MIN
[2023-08-25] MEDS: morphine 2 MG/ML inj. syringe IV PRN (15:28)
[2023-08-25] MEDS: diazepam inj 5 MG/ML inj. IV PRN ×2 (16:34→18:05)
[2023-08-25 18:00] VITALS: BP 123/88; PULSE 79; RESP 22; TEMP 96.7; O2SAT 96
[2023-08-25 20:00] VITALS: RESP 20; O2SAT 95
[2023-08-25] MEDS ORDERED: phenobarbital 30mg tablet PO SCH (21:00)
[2023-08-25] MEDS: enoxaparin 40mg/0.4ml syringe SQ SCH (21:27)
[2023-08-25 22:00] VITALS: BP 120/48; PULSE 77; RESP 16; TEMP 96.4; O2SAT 98
[2023-08-26] MEDS: HYDROcodone/acetaminophen 10/325mg tab PO PRN ×2 (00:45→15:29)
[2023-08-26] MEDS: levetiracetam inj 1,500 MG in normal saline 100ml IV soln 100 ML IV SCH (06:31)
[2023-08-26 06:47] VITALS: BP 110/66; PULSE 78; RESP 16; TEMP 97.3; O2SAT 96
[2023-08-26 08:00] VITALS: RESP 16; O2SAT 96
[2023-08-26] MEDS: oxcarbazepine 150mg tablet PO SCH (08:05)
[2023-08-26] MEDS: busPIRone 5mg tablet PO SCH (08:05)
[2023-08-26] MEDS: diazepam inj 5 MG/ML inj. IV PRN (08:05)
[2023-08-26] MEDS: PARoxetine 20mg tablet PO SCH (08:06)
[2023-08-26] MEDS: levoTHYROXINE 112mcg tablet PO SCH (08:06)
[2023-08-26] MEDS: NUT.TX.IMPAIRED DIGEST FXN (Ensure Clear) 237 ML PO SCH (08:06)
[2023-08-26] MEDS: FERROUS SULFATE 142 MG TABLET.ER (45mg elemental) PO SCH (08:06)
[2023-08-26 11:36] VITALS: PULSE 87; RESP 18; O2SAT 94
[2023-08-26] MEDS ORDERED: ASPI-10 PO (13:34)
[2023-08-26] MEDS ORDERED: FERR142T13 PO (13:34)
[2023-08-26] MEDS ORDERED: [UNRECOGNIZED DRUG - CODE] PO (13:34)
[2023-08-26 15:29] VITALS: RESP 15
== END 2023-08-26 16:55 | disposition home health service (06) | DRG 308 ==
LOC: EDBD 12:24 → ER 12:24 → ED HOLD 18:39 → UNDOADMIN 18:47 → ED HOLD 18:47 → ORTHO 4S 08-15 07:30
PROVIDERS: ADMIT Internal Medicine; ATTEND Internal Medicine
PROC: 30233N1 Transfusion of Nonautologous Red Blood Cells into Peripheral Vein, Percutaneous Approach (ICD-10-PCS; 2023-08-15)
PROC: 0QS604Z Reposition Right Upper Femur with Internal Fixation Device, Open Approach (ICD-10-PCS; principal; 2023-08-15 14:32)
DX: S72.141A Displaced intertrochanteric fracture of right femur, initial encounter for closed fracture (principal); G40.919 Epilepsy, unspecified, intractable, without status epilepticus; E87.0 Hyperosmolality and hypernatremia; D50.9 Iron deficiency anemia, unspecified; N39.0 Urinary tract infection, site not specified; B96.20 Unspecified Escherichia coli [E. coli] as the cause of diseases classified elsewhere; J44.9 Chronic obstructive pulmonary disease, unspecified; F84.0 Autistic disorder; E03.9 Hypothyroidism, unspecified; F42.9 Obsessive-compulsive disorder, unspecified; G80.9 Cerebral palsy, unspecified; W18.39XA Other fall on same level, initial encounter; Y93.89 Activity, other specified; Y92.89 Other specified places as the place of occurrence of the external cause; Y99.8 Other external cause status; Z79.899 Other long term (current) drug therapy
CPT/HCPCS: 36415; 36430; 70450; 73502; 76000; 80053; 80183; 81001; 82948; 84145; 84443; 85025; 85610; 86885; 86900; 86901; 86920; 87040; 87077; 87081; 87088; 87186; 92508; 92616; 97161; 97530; 97535; 99285; A4314; A4615; A4618; A5200; A6212; A6213; A6258; A6449; A7000; C1713; G0378; J0690; J1650; J1953; J1956; J2250; J2270; J2274; J2560; J2704; J3010; J3360; J3480; J3490; J7030; J7120; P9016

== ENCOUNTER 2023-10-03 13:56 | Emergency (ER) | payer MEDICAID ==
[~2023-10-03] VITALS: Ht 152.4 cm; Wt 38.6 kg
[~2023-10-03 13:56] MED LIST changes: +ASPI-10 PO; +FERR142T13 PO; +[UNRECOGNIZED DRUG - CODE] PO
[2023-10-03 13:58] VITALS: RESP 18; TEMP 98
[2023-10-03] MEDS: LIDOcaine 1%/PF 5ML 10 MG/ML VIAL IJ ONE (14:05)
[2023-10-03] MEDS: LORazepam 1 MG tablet PO ONE (14:21)
[2023-10-03] MEDS ORDERED: CEPH-585 PO (15:56)
[2023-10-03] MEDS: cephalexin 250mg capsule PO STA (16:05)
== END 2023-10-03 16:10 | disposition home or self-care (01) ==
LOC: ER 13:57
DX: S01.511A Laceration without foreign body of lip, initial encounter (principal); S60.221A Contusion of right hand, initial encounter; W19.XXXA Unspecified fall, initial encounter; Y93.89 Activity, other specified; Y92.89 Other specified places as the place of occurrence of the external cause; Y99.8 Other external cause status
CPT/HCPCS: 40650; 73130; 99284; A6449

== ENCOUNTER 2024-07-06 13:40 | Inpatient (IN) | payer MEDICAID ==
[~2024-07-06] VITALS: Ht 162.6 cm; Wt 40.9 kg
[~2024-07-06 13:40] MED LIST changes: -ASPI-10 PO; +CEPH-585 PO
[2024-07-06 16:13] LABS: BASOPHILS % (AUTO) 0.2 % (0-1); EOSINOPHILS % (AUTO) 0.4 % (0-6); HEMATOCRIT 37.4 % (35.0-45.0); HEMOGLOBIN 12.3 g/dl (12.0-16.0); LYMPHOCYTES # (AUTO) 1.2 X10'3 (1.1-4.8); LYMPHOCYTES % (AUTO) 22.9 % (21-51); MEAN CORPUSCULAR HEMOGLOBIN 32.1 PG (27.0-31.0); MEAN CORPUSCULAR VOLUME 97.4 FL (78-98); MEAN PLATELET VOLUME 9.2 FL (7.4-10.4); MONOCYTES # (AUTO) 0.7 X10'3 (0-0.9); NEUTROPHILS # (AUTO) 3.3 X10'3 (1.8-7.7); NEUTROPHILS % (AUTO) 62.5 % (42-75); PLATELET COUNT 200 X10'3 (140-440); RED BLOOD COUNT 3.85 X10'6 (4.20-5.60); RED CELL DISTRIBUTION WIDTH 13.1 % (11.5-14.5); WHITE BLOOD COUNT 5.3 X10'3 (4.5-11.0)
[2024-07-06 16:16] LABS: BILIRUBIN,URINE MODERATE (Neg); CLARITY,URINE CLOUDY (Clear); COLOR,URINE YELLOW (Yellow); GLUCOSE, URINE NEGATIVE (Neg); KETONES,URINE 15 mg/dl (Neg); LEUKOCYTE ESTERASE ,URINE NEGATIVE (Neg); NITRITES, URINE NEGATIVE (Neg); OCCULT BLOOD,URINE NEGATIVE (Neg); PH,URINE 8.5 (4.8-8.0); PROTEIN,URINE 100 mg/dl (Neg)
[2024-07-06 16:23] LABS: HYALINE CASTS >30 /LPF (NEGATIVE); SQUAMOUS EPITHELIAL CELL,UR FEW /LPF (FEW); UA COLLECTION TYPE OTHER
[2024-07-06 16:25] LABS: BACTERIA,URINE 4+ /HPF (Neg); WBC,URINE 0-4 /HPF (0-4)
[2024-07-06 16:36] LABS: ALANINE AMINOTRANSFERASE 95 U/L (12-78); ALBUMIN 4.1 G/DL (3.4-5.0); ALKALINE PHOSPHATASE 118 IU/L (46-116); AMYLASE 37 U/L (25-115); ASPARTATE AMINO TRANSFERASE 78 U/L (10-37); BILIRUBIN,TOTAL 0.3 MG/DL (0.1-1.0); BLOOD UREA NITROGEN 27 MG/DL (7-18); BUN/CREATININE RATIO 46.6 (10.0-20.0); CALCIUM 8.8 MG/DL (8.5-10.1); CHLORIDE 92 MMOL/L (99-107); CREATININE 0.58 MG/DL (0.40-0.90); GLUCOSE 99 MG/DL (70-104); LIPASE 19 U/L (16-77); SODIUM 141 MMOL/L (135-145); TOTAL PROTEIN 8.4 G/DL (6.4-8.2); eCRCL 72 ML/MIN; eGFR > 90 ML/MIN
[2024-07-06] MEDS: normal saline 1000ML IV soln IVB ONE (16:57)
[2024-07-06] MEDS: bisacodyl 10mg suppository rectal RC STA (16:57)
[2024-07-06 17:13] LABS: ANION GAP 0 (8-16)
[2024-07-06 17:14] LABS: POTASSIUM 2.8 MMOL/L (3.5-5.1); TOTAL CARBON DIOXIDE 48.6 MMOL/L (24-32)
[2024-07-06] MEDS: potassium CL 10mEq/100ml bag 100 ML IV PRN (18:04)
[2024-07-06] MEDS ORDERED: PARO10TA4 PO (18:18)
[2024-07-06] MEDS ORDERED: OXCA300T16 PO (18:18)
[2024-07-06] MEDS ORDERED: PARO20TA6 PO (18:18)
[2024-07-06] MEDS ORDERED: MAGN400O6 PO (18:43)
[2024-07-06] MEDS: morphine 4 MG/ML inj SYRINge IV ONE (18:44)
[2024-07-06] MEDS: ondansetron/PF 4mg/2ml inj IV ONE (18:44)
[2024-07-06] MEDS ORDERED: magnesium sulf-water 2g/50mL 50 ML IV PRN (19:55)
[2024-07-06] MEDS ORDERED: HYDROcodone/acetaminophen 5mg/325mg tablet PO PRN (19:55)
[2024-07-06] MEDS ORDERED: magnesium hydroxide 30ml (MOM) UD suspension PO PRN (19:55)
[2024-07-06] MEDS ORDERED: potassium Cl 20 mEq SR tablet PO PRN (19:55)
[2024-07-06] MEDS ORDERED: morphine 2 MG/ML inj. syringe IV PRN ×2 (19:55)
[2024-07-06] MEDS ORDERED: ondansetron/PF 4mg/2ml inj IV PRN (19:55)
[2024-07-06] MEDS ORDERED: mag hydrox/Alum hydrox/simeth 30ml oral suspension PO PRN (19:55)
[2024-07-06] MEDS ORDERED: magnesium Cl slow-release 64mg tablet PO PRN (19:55)
[2024-07-06] MEDS ORDERED: HYDROcodone/acetaminophen 10/325mg tab PO PRN (19:55)
[2024-07-06] MEDS: phenoBARBITAL sod 130mg/ml inj. IV ONE (19:55)
[2024-07-06] MEDS ORDERED: magnesium sulf-water 4G/100mL 100 ML IV PRN (19:55)
[2024-07-06] MEDS ORDERED: acetaminophen 325mg tablet PO PRN (19:55)
[2024-07-06] MEDS ORDERED: potassium Cl 40MEQ/1/2NS 520ml 520 ML IV PRN (19:55)
[2024-07-06] MEDS: docusate sod 100mg capsule PO SCH (20:00)
[2024-07-06] MEDS: K and/or MAG REPLACEMENT MC SCH (20:00)
[2024-07-06 20:31] LABS: MAGNESIUM 3.5 MG/DL (1.5-2.4); PRO BRAIN NATRIURETIC PEPTIDE 70 PG/ML (0-125)
[2024-07-06] MEDS: potassium Cl 40MEQ/1/2NS 520ml 520 ML IV PRN (20:49)
[2024-07-06] MEDS: normal saline 1000ml 1,000 ML IV SCH (20:55)
[2024-07-07] VITALS (7 sets, daily range): BP systolic 100–130; BP diastolic 50–67; PULSE 66–90; RESP 11–16; TEMP 97.2–97.7; O2SAT 98–100
[2024-07-07] MEDS ORDERED: LORazepam 0.5 MG tablet PO PRN (03:50)
[2024-07-07] MEDS: pantoprazole 40mg Tablet.DR PO SCH (07:30)
[2024-07-07 07:43] LABS: BASOPHILS % (AUTO) 0.4 % (0-1); EOSINOPHILS % (AUTO) 0.5 % (0-6); HEMATOCRIT 33.4 % (35.0-45.0); LYMPHOCYTES % (AUTO) 21.6 % (21-51); MEAN CORPUSCULAR HEMOGLOBIN 32.9 PG (27.0-31.0); MEAN CORPUSCULAR HGB CONC 32.9 g/dL (33.0-36.5); MEAN CORPUSCULAR VOLUME 100.2 FL (78-98); MEAN PLATELET VOLUME 9.4 FL (7.4-10.4); MONOCYTES # (AUTO) 0.6 X10'3 (0-0.9); MONOCYTES % (AUTO) 13.3 % (2-12); NEUTROPHILS % (AUTO) 64.2 % (42-75); PLATELET COUNT 178 X10'3 (140-440); RED BLOOD COUNT 3.33 X10'6 (4.20-5.60); RED CELL DISTRIBUTION WIDTH 13.3 % (11.5-14.5); WHITE BLOOD COUNT 4.6 X10'3 (4.5-11.0)
[2024-07-07 07:50] LABS: INR 1.2 INR
[2024-07-07] MEDS: multivitamins, therapeutics tablet PO SCH (08:00)
[2024-07-07] MEDS: NUT.TX.IMPAIRED DIGEST FXN (Ensure Clear) 237 ML PO SCH (08:00)
[2024-07-07 08:07] LABS: ALANINE AMINOTRANSFERASE 63 U/L (12-78); ALBUMIN 2.9 G/DL (3.4-5.0); ALBUMIN/GLOBULIN RATIO 0.9 (1.1-1.5); ALKALINE PHOSPHATASE 90 IU/L (46-116); ANION GAP 7 (8-16); ASPARTATE AMINO TRANSFERASE 45 U/L (10-37); BILIRUBIN,TOTAL 0.4 MG/DL (0.1-1.0); BLOOD UREA NITROGEN 26 MG/DL (7-18); BUN/CREATININE RATIO 57.8 (10.0-20.0); CALCIUM 7.1 MG/DL (8.5-10.1); CHLORIDE 106 MMOL/L (99-107); CREATININE 0.45 MG/DL (0.40-0.90); GLUCOSE 61 MG/DL (70-104); MAGNESIUM 3.4 MG/DL (1.5-2.4); PHOSPHORUS 2.5 MG/DL (2.3-4.5); POTASSIUM 4.3 MMOL/L (3.5-5.1); SODIUM 141 MMOL/L (135-145); THYROID STIMULATING HORMONE 0.53 ulU/ml (0.34-4.50); TOTAL CARBON DIOXIDE 27.9 MMOL/L (24-32); TOTAL PROTEIN 6.3 G/DL (6.4-8.2); eCRCL 92 ML/MIN; eGFR > 90 ML/MIN
[2024-07-07] MEDS: PARoxetine 20mg tablet PO SCH ×2 (11:24→21:08)
[2024-07-07] MEDS: levoTHYROXINE 112mcg tablet PO SCH (11:25)
[2024-07-07] MEDS: oxcarbazepine 150mg tablet PO SCH (11:25)
[2024-07-07] MEDS: busPIRone 5mg tablet PO SCH (11:25)
[2024-07-07] MEDS ORDERED: diatr meglu/diatrizoate 30ml oral sol.-(3 dose) bottle ONE (16:47)
[2024-07-07] MEDS ORDERED: diatr meglu/diatrizoate 30ml oral sol.-(3 dose) bottle PO SCH ×2 (21:00)
[2024-07-07] MEDS: phenoBARBITAL 30mg tablet PO SCH (21:09)
[2024-07-08] VITALS (7 sets, daily range): BP systolic 102–125; BP diastolic 51–63; PULSE 89–106; RESP 16–22; TEMP 98.2–100.3; O2SAT 91–96
[2024-07-08 07:29] LABS: BASOPHILS % (AUTO) 0 % (0-1); EOSINOPHILS % (AUTO) 0.1 % (0-6); HEMATOCRIT 34.2 % (35.0-45.0); HEMOGLOBIN 11.5 g/dl (12.0-16.0); INR 1.2 INR; LYMPHOCYTES # (AUTO) 0.7 X10'3 (1.1-4.8); LYMPHOCYTES % (AUTO) 6.6 % (21-51); MEAN CORPUSCULAR HEMOGLOBIN 33.2 PG (27.0-31.0); MEAN CORPUSCULAR HGB CONC 33.6 g/dL (33.0-36.5); MEAN CORPUSCULAR VOLUME 98.8 FL (78-98); MEAN PLATELET VOLUME 9.4 FL (7.4-10.4); MONOCYTES # (AUTO) 0.9 X10'3 (0-0.9); MONOCYTES % (AUTO) 7.8 % (2-12); NEUTROPHILS # (AUTO) 9.4 X10'3 (1.8-7.7); NEUTROPHILS % (AUTO) 85.5 % (42-75); PLATELET COUNT 204 X10'3 (140-440); PROTHROMBIN TIME 12.2 SECONDS (9.0-12.0); RED BLOOD COUNT 3.46 X10'6 (4.20-5.60)
[2024-07-08 07:34] LABS: ALANINE AMINOTRANSFERASE 55 U/L (12-78); ALBUMIN 2.9 G/DL (3.4-5.0); ALBUMIN/GLOBULIN RATIO 0.8 (1.1-1.5); ALKALINE PHOSPHATASE 102 IU/L (46-116); ANION GAP 17 (8-16); ASPARTATE AMINO TRANSFERASE 32 U/L (10-37); BILIRUBIN,TOTAL 0.5 MG/DL (0.1-1.0); BLOOD UREA NITROGEN 12 MG/DL (7-18); BUN/CREATININE RATIO 20.7 (10.0-20.0); CALCIUM 7.3 MG/DL (8.5-10.1); CHLORIDE 102 MMOL/L (99-107); CREATININE 0.58 MG/DL (0.40-0.90); GLUCOSE 56 MG/DL (70-104); MAGNESIUM 2.3 MG/DL (1.5-2.4); PHOSPHORUS 1.8 MG/DL (2.3-4.5); POTASSIUM 4.1 MMOL/L (3.5-5.1); SODIUM 141 MMOL/L (135-145); TOTAL CARBON DIOXIDE 21.6 MMOL/L (24-32); TOTAL PROTEIN 6.6 G/DL (6.4-8.2); eCRCL 72 ML/MIN; eGFR > 90 ML/MIN
[2024-07-08] MEDS: lactulose 20gm/30ml cup PO SCH (13:55)
[2024-07-08] MEDS: mineral oil 133ml enema RC ONE (14:09)
[2024-07-08] MEDS: normal saline 1000ml 1,000 ML IV SCH (16:13)
[2024-07-08] MEDS: acetaminophen 325mg tablet PO PRN (16:13)
[2024-07-08] MEDS: CefTRIAXone/D5W-Rocephin 1gm 50 ML IV ONE (17:27)
[2024-07-08] MEDS: diatr meglu/diatrizoate 30ml oral sol.-(3 dose) bottle PO SCH (21:53)
[2024-07-08] MEDS ORDERED: acetaminophen 325mg tablet PEG PRN ×2 (22:34)
[2024-07-08] MEDS ORDERED: busPIRone 5mg tablet PEG SCH (22:37)
[2024-07-08] MEDS ORDERED: diatr meglu/diatrizoate 30ml oral sol.-(3 dose) bottle PEG SCH (22:38)
[2024-07-08] MEDS ORDERED: acetaminophen 325mg tablet NG PRN ×2 (22:39)
[2024-07-08] MEDS: docusate sodium 100mg/10ml UD cup NG SCH (22:42)
[2024-07-08] MEDS ORDERED: LORazepam 0.5 MG tablet NG PRN (22:44)
[2024-07-08] MEDS ORDERED: mag hydrox/Alum hydrox/simeth 30ml oral suspension NG PRN (22:46)
[2024-07-08] MEDS ORDERED: magnesium hydroxide 30ml (MOM) UD suspension NG PRN (22:52)
[2024-07-09] VITALS (7 sets, daily range): BP systolic 106–127; BP diastolic 56–74; PULSE 60–103; RESP 14–20; TEMP 97.5–98.4; O2SAT 87–96
[2024-07-09] MEDS ORDERED: dextrose 50%-water 50ml dispensing syringe IV PRN (02:30)
[2024-07-09] MEDS ORDERED: glucagon, human recombinant 1mg kit SUBCUT PRN (02:30)
[2024-07-09] MEDS ORDERED: DEXTROSE 15 GM of carb/4 tabs (each vial/BOTTLE has 4 tablets) PO PRN ×2 (02:30)
[2024-07-09] MEDS: lactulose 20gm/30ml cup NG SCH (03:26)
[2024-07-09] MEDS: dextrose 50%-water 50ml dispensing syringe IV PRN (03:26)
[2024-07-09] MEDS: CefTRIAXone/D5W-Rocephin 1gm 50 ML IV SCH (07:29)
[2024-07-09] MEDS: diatr meglu/diatrizoate 30ml oral sol.-(3 dose) bottle NG SCH (07:29)
[2024-07-09] MEDS: levoTHYROXINE 112mcg tablet NG SCH (07:29)
[2024-07-09] MEDS: PARoxetine 20mg tablet NG SCH ×2 (07:30→20:28)
[2024-07-09] MEDS: busPIRone 5mg tablet NG SCH (07:30)
[2024-07-09] MEDS: oxcarbazepine 150mg tablet NG SCH (07:31)
[2024-07-09] MEDS ORDERED: bisacodyl 10mg suppository rectal RC PRN (07:55)
[2024-07-09] MEDS: NUT.TX.IMPAIRED DIGEST FXN (Ensure Clear) 237 ML NG SCH (08:00)
[2024-07-09 08:26] LABS: BASOPHILS % (AUTO) 0 % (0-1); EOSINOPHILS % (AUTO) 0 % (0-6); HEMATOCRIT 32.5 % (35.0-45.0); HEMOGLOBIN 10.9 g/dl (12.0-16.0); LYMPHOCYTES # (AUTO) 1.2 X10'3 (1.1-4.8); LYMPHOCYTES % (AUTO) 6.8 % (21-51); MEAN CORPUSCULAR HEMOGLOBIN 32.4 PG (27.0-31.0); MEAN CORPUSCULAR HGB CONC 33.4 g/dL (33.0-36.5); MEAN CORPUSCULAR VOLUME 96.9 FL (78-98); MEAN PLATELET VOLUME 9.2 FL (7.4-10.4); MONOCYTES # (AUTO) 0.7 X10'3 (0-0.9); MONOCYTES % (AUTO) 4.1 % (2-12); NEUTROPHILS # (AUTO) 15.3 X10'3 (1.8-7.7); NEUTROPHILS % (AUTO) 89.1 % (42-75); PLATELET COUNT 177 X10'3 (140-440); RED BLOOD COUNT 3.36 X10'6 (4.20-5.60); RED CELL DISTRIBUTION WIDTH 13.2 % (11.5-14.5); WHITE BLOOD COUNT 17.2 X10'3 (4.5-11.0)
[2024-07-09 08:41] LABS: INR 1.4 INR; PROTHROMBIN TIME 14.5 SECONDS (9.0-12.0)
[2024-07-09 09:00] LABS: ALANINE AMINOTRANSFERASE 40 U/L (12-78); ALBUMIN 2.4 G/DL (3.4-5.0); ALBUMIN/GLOBULIN RATIO 0.6 (1.1-1.5); ALKALINE PHOSPHATASE 104 IU/L (46-116); ANION GAP 6 (8-16); ASPARTATE AMINO TRANSFERASE 23 U/L (10-37); BILIRUBIN,TOTAL 0.3 MG/DL (0.1-1.0); BLOOD UREA NITROGEN 3 MG/DL (7-18); BUN/CREATININE RATIO 5.3 (10.0-20.0); CALCIUM 7.2 MG/DL (8.5-10.1); CHLORIDE 104 MMOL/L (99-107); CREATININE 0.57 MG/DL (0.40-0.90); GLUCOSE 98 MG/DL (70-104); MAGNESIUM 2.1 MG/DL (1.5-2.4); PHOSPHORUS 1.5 MG/DL (2.3-4.5); POTASSIUM 3.1 MMOL/L (3.5-5.1); SODIUM 137 MMOL/L (135-145); TOTAL CARBON DIOXIDE 26.9 MMOL/L (24-32); TOTAL PROTEIN 6.1 G/DL (6.4-8.2); eCRCL 73 ML/MIN; eGFR > 90 ML/MIN
[2024-07-09] MEDS: bisacodyl 10mg suppository rectal RC STA (10:24)
[2024-07-09] MEDS: potassium Cl 20 mEq SR tablet PO PRN (10:25)
[2024-07-09] MEDS ORDERED: iohexol 300mg/ml 100ml inj. ONE (14:35)
[2024-07-09] MEDS: phenoBARBITAL 30mg tablet NG SCH (20:23)
[2024-07-10] VITALS (8 sets, daily range): BP systolic 120–141; BP diastolic 67–75; PULSE 75–81; RESP 13–21; TEMP 97.1–98.2; O2SAT 95–98
[2024-07-10 06:47] LABS: INR 1.2 INR
[2024-07-10 06:54] LABS: BASOPHILS % (AUTO) 0 % (0-1); EOSINOPHILS % (AUTO) 0.1 % (0-6); HEMATOCRIT 32.4 % (35.0-45.0); HEMOGLOBIN 10.9 g/dl (12.0-16.0); LYMPHOCYTES # (AUTO) 0.9 X10'3 (1.1-4.8); LYMPHOCYTES % (AUTO) 6.4 % (21-51); MEAN CORPUSCULAR HEMOGLOBIN 33.1 PG (27.0-31.0); MEAN CORPUSCULAR HGB CONC 33.5 g/dL (33.0-36.5); MEAN CORPUSCULAR VOLUME 98.6 FL (78-98); MEAN PLATELET VOLUME 9.8 FL (7.4-10.4); MONOCYTES # (AUTO) 0.6 X10'3 (0-0.9); MONOCYTES % (AUTO) 4.1 % (2-12); NEUTROPHILS # (AUTO) 12.4 X10'3 (1.8-7.7); NEUTROPHILS % (AUTO) 89.4 % (42-75); PLATELET COUNT 175 X10'3 (140-440); RED BLOOD COUNT 3.29 X10'6 (4.20-5.60); WHITE BLOOD COUNT 13.9 X10'3 (4.5-11.0)
[2024-07-10 07:05] LABS: ALANINE AMINOTRANSFERASE 34 U/L (12-78); ALBUMIN 2.4 G/DL (3.4-5.0); ALBUMIN/GLOBULIN RATIO 0.6 (1.1-1.5); ALKALINE PHOSPHATASE 118 IU/L (46-116); ANION GAP 5 (8-16); ASPARTATE AMINO TRANSFERASE 20 U/L (10-37); BILIRUBIN,TOTAL 0.4 MG/DL (0.1-1.0); BLOOD UREA NITROGEN 2 MG/DL (7-18); BUN/CREATININE RATIO 5.7 (10.0-20.0); CALCIUM 7.3 MG/DL (8.5-10.1); CHLORIDE 104 MMOL/L (99-107); CREATININE 0.35 MG/DL (0.40-0.90); GLUCOSE 75 MG/DL (70-104); PHOSPHORUS 1.4 MG/DL (2.3-4.5); SODIUM 140 MMOL/L (135-145); TOTAL PROTEIN 6.2 G/DL (6.4-8.2); eCRCL 119 ML/MIN; eGFR > 90 ML/MIN
[2024-07-10 07:13] LABS: POTASSIUM 2.9 MMOL/L (3.5-5.1)
[2024-07-10] MEDS ORDERED: lactulose 20gm/30ml cup NG PRN (16:00)
[2024-07-10] MEDS ORDERED: lactulose 20gm/30ml cup NG SCH (16:00)
[2024-07-10] MEDS: dextrose 5%-1/2 normal saline 1,000 ML IV SCH (23:53)
[2024-07-11 02:00] VITALS: BP 120/72; PULSE 77; RESP 21; TEMP 97.3; O2SAT 95
[2024-07-11 06:34] LABS: BASOPHILS % (AUTO) 0.1 % (0-1); EOSINOPHILS # (AUTO) 0.1 X10'3 (0-0.9); EOSINOPHILS % (AUTO) 0.6 % (0-6); HEMATOCRIT 34.7 % (35.0-45.0); HEMOGLOBIN 11.6 g/dl (12.0-16.0); LYMPHOCYTES # (AUTO) 0.9 X10'3 (1.1-4.8); LYMPHOCYTES % (AUTO) 9.7 % (21-51); MEAN CORPUSCULAR HEMOGLOBIN 32.8 PG (27.0-31.0); MEAN CORPUSCULAR HGB CONC 33.5 g/dL (33.0-36.5); MEAN CORPUSCULAR VOLUME 97.8 FL (78-98); MEAN PLATELET VOLUME 9.7 FL (7.4-10.4); MONOCYTES # (AUTO) 0.4 X10'3 (0-0.9); MONOCYTES % (AUTO) 4.2 % (2-12); NEUTROPHILS # (AUTO) 7.9 X10'3 (1.8-7.7); NEUTROPHILS % (AUTO) 85.4 % (42-75); PLATELET COUNT 187 X10'3 (140-440); RED BLOOD COUNT 3.54 X10'6 (4.20-5.60); RED CELL DISTRIBUTION WIDTH 13.3 % (11.5-14.5); WHITE BLOOD COUNT 9.3 X10'3 (4.5-11.0)
[2024-07-11 06:42] LABS: INR 1.1 INR; PROTHROMBIN TIME 11.6 SECONDS (9.0-12.0)
[2024-07-11 07:00] VITALS: BP 130/53; PULSE 72; RESP 14; TEMP 97.4; O2SAT 97
[2024-07-11 07:02] LABS: ALANINE AMINOTRANSFERASE 26 U/L (12-78); ALBUMIN 2.4 G/DL (3.4-5.0); ALBUMIN/GLOBULIN RATIO 0.6 (1.1-1.5); ALKALINE PHOSPHATASE 148 IU/L (46-116); ANION GAP 4 (8-16); ASPARTATE AMINO TRANSFERASE 15 U/L (10-37); BILIRUBIN,TOTAL 0.3 MG/DL (0.1-1.0); BLOOD UREA NITROGEN 2 MG/DL (7-18); BUN/CREATININE RATIO 6.7 (10.0-20.0); CALCIUM 7.5 MG/DL (8.5-10.1); CHLORIDE 104 MMOL/L (99-107); GLUCOSE 108 MG/DL (70-104); PHOSPHORUS 1.3 MG/DL (2.3-4.5); POTASSIUM 3.6 MMOL/L (3.5-5.1); SODIUM 139 MMOL/L (135-145); TOTAL CARBON DIOXIDE 31.1 MMOL/L (24-32); TOTAL PROTEIN 6.3 G/DL (6.4-8.2); eCRCL 138 ML/MIN; eGFR > 90 ML/MIN
[2024-07-11 08:00] VITALS: RESP 17; O2SAT 97
[2024-07-11 11:00] VITALS: BP 115/50; PULSE 70; RESP 14; TEMP 97.9; O2SAT 100
[2024-07-11 15:00] VITALS: BP 121/62; PULSE 71; RESP 21; TEMP 98.2; O2SAT 94
[2024-07-11] MEDS: Neutra Phos packet PO SCH (16:23)
[2024-07-11] MEDS ORDERED: acetaminophen 325mg tablet PO PRN ×2 (18:19→18:20)
[2024-07-11] MEDS ORDERED: LORazepam 0.5 MG tablet PO PRN (18:21)
[2024-07-11] MEDS ORDERED: lactulose 20gm/30ml cup PO PRN (18:21)
[2024-07-11] MEDS ORDERED: mag hydrox/Alum hydrox/simeth 30ml oral suspension PO PRN (18:22)
[2024-07-11] MEDS ORDERED: magnesium hydroxide 30ml (MOM) UD suspension PO PRN (18:22)
[2024-07-11 21:00] VITALS: BP 137/64; PULSE 85; RESP 18; TEMP 97.1; O2SAT 98
[2024-07-11] MEDS: busPIRone 5mg tablet PO SCH (22:57)
[2024-07-11] MEDS: oxcarbazepine 150mg tablet PO SCH (22:57)
[2024-07-11] MEDS: phenoBARBITAL 30mg tablet PO SCH (22:58)
[2024-07-11] MEDS: PARoxetine 20mg tablet PO SCH (22:58)
[2024-07-12 02:52] VITALS: BP 127/69; PULSE 70; RESP 14; TEMP 97.6; O2SAT 100
[2024-07-12 06:00] VITALS: BP 117/65; PULSE 84; RESP 18; TEMP 98.3; O2SAT 95
[2024-07-12 08:15] VITALS: RESP 20; O2SAT 94
[2024-07-12] MEDS: levoTHYROXINE 112mcg tablet PO SCH (08:47)
[2024-07-12] MEDS: PARoxetine 20mg tablet PO SCH (08:48)
[2024-07-12 09:40] LABS: BASOPHILS % (AUTO) 0.3 % (0-1); EOSINOPHILS # (AUTO) 0.1 X10'3 (0-0.9); EOSINOPHILS % (AUTO) 1.5 % (0-6); HEMATOCRIT 34.5 % (35.0-45.0); HEMOGLOBIN 11.4 g/dl (12.0-16.0); LYMPHOCYTES # (AUTO) 1.3 X10'3 (1.1-4.8); LYMPHOCYTES % (AUTO) 20.8 % (21-51); MEAN CORPUSCULAR HEMOGLOBIN 32.1 PG (27.0-31.0); MEAN CORPUSCULAR HGB CONC 33.1 g/dL (33.0-36.5); MEAN CORPUSCULAR VOLUME 96.9 FL (78-98); MEAN PLATELET VOLUME 9.1 FL (7.4-10.4); MONOCYTES # (AUTO) 0.5 X10'3 (0-0.9); MONOCYTES % (AUTO) 8.1 % (2-12); NEUTROPHILS # (AUTO) 4.4 X10'3 (1.8-7.7); NEUTROPHILS % (AUTO) 69.3 % (42-75); PLATELET COUNT 200 X10'3 (140-440); RED BLOOD COUNT 3.56 X10'6 (4.20-5.60); RED CELL DISTRIBUTION WIDTH 13.2 % (11.5-14.5); WHITE BLOOD COUNT 6.3 X10'3 (4.5-11.0)
[2024-07-12 09:56] LABS: ALANINE AMINOTRANSFERASE 28 U/L (12-78); ALBUMIN 2.4 G/DL (3.4-5.0); ALBUMIN/GLOBULIN RATIO 0.6 (1.1-1.5); ALKALINE PHOSPHATASE 93 IU/L (46-116); ANION GAP 6 (8-16); ASPARTATE AMINO TRANSFERASE 18 U/L (10-37); BILIRUBIN,TOTAL 0.4 MG/DL (0.1-1.0); BLOOD UREA NITROGEN 2 MG/DL (7-18); BUN/CREATININE RATIO 7.1 (10.0-20.0); CALCIUM 7.7 MG/DL (8.5-10.1); CHLORIDE 101 MMOL/L (99-107); CREATININE 0.28 MG/DL (0.40-0.90); GLUCOSE 93 MG/DL (70-104); POTASSIUM 3.8 MMOL/L (3.5-5.1); SODIUM 137 MMOL/L (135-145); TOTAL CARBON DIOXIDE 29.8 MMOL/L (24-32); TOTAL PROTEIN 6.3 G/DL (6.4-8.2); eCRCL 148 ML/MIN; eGFR > 90 ML/MIN
[2024-07-12 11:00] VITALS: BP 109/61; PULSE 71; RESP 22; TEMP 97.9; O2SAT 97
[2024-07-12] MEDS ORDERED: POLY17PO10 PO (11:13)
== END 2024-07-12 13:00 | disposition home or self-care (01) | DRG 247 ==
LOC: ER 13:40 → ED HOLD 20:03 → PCU 3S 07-07 02:15
PROVIDERS: ADMIT Internal Medicine Critical Care Medicine; ATTEND Family Medicine
PROC: 0D9670Z Drainage of Stomach with Drainage Device, Via Natural or Artificial Opening (ICD-10-PCS; principal; 2024-07-07)
DX: K56.609 Unspecified intestinal obstruction, unspecified as to partial versus complete obstruction (principal); E87.6 Hypokalemia; F41.9 Anxiety disorder, unspecified; F42.9 Obsessive-compulsive disorder, unspecified; R74.01 Elevation of levels of liver transaminase levels; F84.0 Autistic disorder; G80.9 Cerebral palsy, unspecified; G40.909 Epilepsy, unspecified, not intractable, without status epilepticus; Z79.899 Other long term (current) drug therapy; Z99.3 Dependence on wheelchair
CPT/HCPCS: 36415; 71045; 74018; 74176; 74177; 80053; 81001; 82150; 82948; 83605; 83690; 83735; 83880; 84100; 84145; 84443; 85025; 85610; 86885; 86900; 86901; 87040; 87081; 87088; 92508; 92616; 93005; 93971; 96365; 96375; 97110; 97161; 97530; 99285; A4615; A6212; A6213; A6449; C1758; G0378; J0696; J2270; J2405; J2560; J3480; J3490; J7030; J7040; Q9963; Q9967

== ENCOUNTER 2024-09-24 13:15 | Emergency (ER) | payer MEDICAID ==
[~2024-09-24] VITALS: Ht 154.9 cm; Wt 31.8 kg
[~2024-09-24 13:15] MED LIST changes: -CEPH-585 PO; -FERR142T13 PO; -LEVE10002 PO; +MAGN400O6 PO; +OXCA300T16 PO; -OXCA300T4 PO; +PARO20TA6 PO; -PARO30TA4 PO
[2024-09-24 13:18] VITALS: TEMP 97.6
[2024-09-24 17:46] VITALS: BP 106/54; PULSE 69; RESP 15; O2SAT 100
== END 2024-09-24 17:49 | disposition home or self-care (01) ==
LOC: ER 13:16
DX: Z13.9 Encounter for screening, unspecified (principal); R06.81 Apnea, not elsewhere classified; E05.90 Thyrotoxicosis, unspecified without thyrotoxic crisis or storm; M54.2 Cervicalgia; Z79.899 Other long term (current) drug therapy
CPT/HCPCS: 70490; 71045; 71250; 99284

== ENCOUNTER 2024-10-27 10:49 | Emergency (ER) | payer MEDICAID ==
[2024-10-27 15:19] VITALS: BP 116/64; PULSE 91; RESP 21; TEMP 97.8; O2SAT 97
== END 2024-10-27 15:28 | disposition home or self-care (01) ==
LOC: ER 10:50
DX: M79.89 Other specified soft tissue disorders (principal); S00.83XA Contusion of other part of head, initial encounter; E05.90 Thyrotoxicosis, unspecified without thyrotoxic crisis or storm; Z79.899 Other long term (current) drug therapy; X58.XXXA Exposure to other specified factors, initial encounter; Y93.89 Activity, other specified; Y92.89 Other specified places as the place of occurrence of the external cause; Y99.8 Other external cause status
CPT/HCPCS: 73610; 99284

== ENCOUNTER 2024-12-02 12:37 | Emergency (ER) | payer MEDICAID ==
[~2024-12-02] VITALS: Ht 152.4 cm; Wt 38.5 kg
[2024-12-02 12:43] VITALS: PULSE 63
[2024-12-02 15:05] VITALS: BP 112/65; RESP 12; TEMP 98.5; O2SAT 96
== END 2024-12-02 15:00 | disposition home or self-care (01) ==
LOC: ER 12:38
DX: S01.01XA Laceration without foreign body of scalp, initial encounter (principal); E05.90 Thyrotoxicosis, unspecified without thyrotoxic crisis or storm; R51.9 Headache, unspecified; Z79.899 Other long term (current) drug therapy; W18.39XA Other fall on same level, initial encounter; Y93.89 Activity, other specified; Y92.89 Other specified places as the place of occurrence of the external cause; Y99.8 Other external cause status
CPT/HCPCS: 12001; 70450; 99284

== ENCOUNTER 2025-08-09 12:22 | Emergency (ER) | payer MEDICAID ==
[~2025-08-09] VITALS: Ht 142.2 cm; Wt 37.7 kg
[2025-08-09 12:38] VITALS: TEMP 98; O2SAT 96
--- NOTE | 2025-08-09 13:41 | RADIOLOGY REPORT ---
CLINICAL INDICATION: FOOT PAIN TECHNIQUE: DI FOOT, COMPLETE (3VW MIN) COMPARISON: DI ANKLE, COMPLETE(3VW MIN) on DOS: 10/27/24 FINDINGS/IMPRESSION: : There is no evidence of acute fracture or dislocation. Soft tissues are unremarkable. Diffuse degenerative changes.
--- NOTE | 2025-08-09 13:51 | Physician Documentation ---
History of Present Illness ~ Chief Complaint: Extremity Swelling Stated Complaint: SWOLLEN R FOOT R/O DVT Time Seen by MD: 13:37 Primary Medical Doctor: Gregoria Ortiz MD HPI 55 year old female presents to the emergency department sent from [facility] due to swelling in her right foot. Patient was accompanied by family who states that she woke up with swelling in her right foot. They state that there is no pain associated with the swelling, but the family states she has history if extremity swelling. Tetanus witin 5 years: No Medication Reconciliation Allergies: Coded Allergies: divalproex sodium (Verified Allergy, Unknown, 08/09/25) Scheduled Buspirone Hcl* (Buspar*), 2 TABLET PO BID, (Reported) Docusate Sodium (Colace), 2 CAP PO Q12H, (Reported) Levothyroxine Sodium (Levoxyl), 1 TABLET PO DAILY, (Reported) Magnesium Hydroxide (Milk of Magnesia), 30 ML PO Q12H, (Reported) Multivitamins,Ther W-Minerals (Multivitamins with Minerals Hp), 1 CAP PO DAILY, (Reported) Nut.tx.impaired Digestive Fxn (Ensure Clear Therapeutic), 1 CAN PO BID Omeprazole (Prilosec), 0.5 CAP PO DAILY, (Reported) Oxcarbazepine (Oxcarbazepine), 3 TAB PO Q12H, (Reported) Paroxetine HCl (Paroxetine HCl), 1 TAB PO HS, (Reported) Phenobarbital (Phenobarbital), 1.5 TAB PO HS, (Reported) Scheduled PRN Acetaminophen (Tylenol), 2 TABLET PO Q4H PRN for pain, (Reported) Lorazepam* (Ativan*), 1 TABLET PO DAILY PRN for seizures, (Reported) Past Medical History Past Medical History: *CIVIL ENGINEERING PROJECT MANAGER*, Seizures, Hyperthyroidism, *PSYCH* Past Surgical History: noncontributory Patient History: Patient reports no known family medical history. Alcohol Use: None Drug Use: none Lives with: Other Lives In: Assisted Care Occupation: disabled Review of Systems All Other Systems at this time: Reviewed and Negative ROS Patient was asked, but denied any other symptoms. All other systems are negative other than those mentioned above. Physical Exam Vital Signs: RN Vital Signs have been reviewed: Yes, Temperature: 98.0, Source: Temporal, Heart Rate: 82, Respiratory Rate: 20, BP: 105/66, Pulse Oximetry: 96, Weight: 37.730 Oxygen Flow Rate: 0 Pulse Oximetry Reflects: adequate oxygenation Physical Exam General: Alert, no apparent distress. HEENT: PERRL, EOMI, no injection, moist mucous membranes. Neck: Full range of motion. Respiratory: Lungs clear, no respiratory distress. Chest: No accessory muscle use. Cardiovascular: Regular rate and rhythm, no murmurs. Gastrointestinal: Soft, nontender, nondistended. Bowels sounds present. Extremities: Purple discoloring to right foot with swelling. Normal range of motion, no deformity. Neurologic: Oriented x4. Psychiatric: Normal mood and affect. Skin: Normal color, warm and dry. No edema, no ecchymosis. Progress Results/Orders Results/Orders Orders - YAJAIRA RIOS NP Vl Venous (08/09/25 13:43) Completed Orders - YAJAIRA RIOS NP Vl Venous (08/09/25 13:43) Vital Signs 08/09/25 08/09/25 12:38 14:53 Temp 98.0 Pulse 82 76 Resp 20 18 B/P (MAP) 105/66 105/56 Pulse Ox 96 O2 Flow Rate 0 EKG/XRAY/CT/US/VASC/MRI Bone/Soft Tissue X-Ray (Ext.) : Additional Comment CLINICAL INDICATION: FOOT PAIN TECHNIQUE: DI FOOT, COMPLETE (3VW MIN) COMPARISON: DI ANKLE, COMPLETE(3VW MIN) on DOS: 10/27/24 FINDINGS/IMPRESSION: : There is no evidence of acute fracture or dislocation. Soft tissues are unremarkable. Diffuse degenerative changes. Electronically Signed by:YEHUDA PAYAN MD Date & Time: 08/09/25 4215 Medical Decision Making Additional information obtaine: old records Findings Ultrasound indicated there were no signs of DVT infected leg they did make note of some venous reflux which could be attributable to the increased swelling. this will require evaluation in the outpatient setting General Diff Dx:Considerations: Unlikely: Abrasion, Contusion, Fracture, Hematoma, Laceration, Malunion, Neurovascular injury, Open fracture, Sprain, Ulcer, Other Knee Diff Dx:Considerations: Unlikely: Abrasion, Arthritis, Contusion, DJD, Fracture-femur, Fracture-fibula, Fracture-patella, Fracture-tibia, Gout, Hematoma, Laceration, Meniscus injury, Neurovascular injury, Open fracture, Rheumatoid arthritis, Septic, Sprain, Sprain-MCL, Sprain-LCL, Sprain-ACL, Sprain-PCL, Other Ankle Diff Dx:Considerations: Include: Abrasion, Arthritis, Contusion, DJD, Fracture-metatarsal, Fracture-fibula, Fracture-tarsal, Fracture-tibia, Gout, Hematoma, Laceration, Malunion, Neurovascular injury, Nonunion, Open fracture, Osteomyelitis, Rheumatoid arthritis, Sprain, Septic, Ulcer, Other Foot Diff Dx:Considerations: Include: Abrasion, Arthritis, Cellulitis, Contusion, Dislocation, DJD, Fracture-metatarsal, Fracture-phalynx, Fracture- tarsal, Gout, Hematoma, Ingrown toenail, Laceration, Malunion, Neurovascular injury, Open fracture, Paronychia, Puncture, Rheumatoid, Sprain, Septic, Subungual hematoma, Ulcer, Other Toe Diff Dx:Considerations: Unlikely: Abrasion, Cellulitis, Contusion, Dislocation, Felon, Fracture, Hematoma, Laceration, Neurovascular injury, Open fracture, Paronychia, Subungual hematoma, Other Departure Disposition: 01 HOME / SELF CARE / HOMELESS Impression: Primary Impression: Poor circulation Additional Impression: Edema of lower extremity Condition: Improved Additional Instructions: Ultrasound did not indicate any signs of acute DVT in the affected limb. They did make note of some changes to the patient's vasculature which could be at tributable to increased leg swelling. will need to be evaluated in the outpatient setting Referrals: NO PRIMARY CARE PROVIDER (PCP) Signature Scribe Signature: Scribed for Yajaira Rios Programming Intern by Kwame Hartman . 08/09/25 13:55 Attestation: Scribed for Yajaira Rios Programming Intern by Yajaira Mcarthur NP . 08/09/25 14:40 YAJAIRA RIOS NP Aug 09, 2025 13:51 KWAME BARAJAS Aug 09, 2025 13:56
[2025-08-09 14:53] VITALS: BP 105/56; PULSE 76; RESP 18
--- NOTE | 2025-08-09 15:25 | VASCULAR REPORT ---
PROCEDURE: [facility] Study Date and Requested Time: 08/09/2025 02:11 PM History: Right lower extremity swelling COMPARISON: [facility] on DOS: 07/07/24 TECHNIQUE: Multiple high resolution duncan-scale images with and without compression obtained of the right lower extremity veins, including the common femoral vein, deep femoral vein, proximal mid and distal superficial femoral vein, and popliteal vein. Additional limited images of the greater saphenous vein also obtained. Augmentation performed as indicated. Color and spectral doppler flow images obtained as indicated. FINDINGS: No visible intraluminal venous thrombus. No evidence of incompressibility or abnormal color or spectral Doppler flow visualized in the right lower extremity veins including, the common femoral vein, deep femoral vein, proximal mid and distal superficial femoral vein, and popliteal vein. Greater saphenous vein grossly unremarkable. Incidental finding of deep venous reflux involving the right peroneal vein. IMPRESSION: No sonographic evidence of right lower extremity deep venous thrombosis.
== END 2025-08-09 15:00 | disposition home or self-care (01) ==
LOC: ER 12:22
DX: R60.0 Localized edema (principal); R09.89 Other specified symptoms and signs involving the circulatory and respiratory systems; E05.90 Thyrotoxicosis, unspecified without thyrotoxic crisis or storm; Z88.8 Allergy status to other drugs, medicaments and biological substances; Z79.899 Other long term (current) drug therapy
CPT/HCPCS: 73630; 93971; 99284